=== PATIENT | male | born 1955 | race Caucasian/White ===

== ENCOUNTER 2022-06-14 13:47 | Emergency (ER) | payer MEDICAID ==
[~2022-06-14] VITALS: Ht 182.9 cm; Wt 70.0 kg
[~2022-06-14 13:47] MED LIST: NO HOME MEDS
[2022-06-14 14:47] LABS: ALANINE AMINOTRANSFERASE 18 U/L (12-78); ALBUMIN 4.1 G/DL (3.4-5.0); ALKALINE PHOSPHATASE 117 IU/L (46-116); ANION GAP 7 (8-16); ASPARTATE AMINO TRANSFERASE 10 U/L (10-37); BILIRUBIN,TOTAL 0.6 MG/DL (0.1-1.0); BLOOD UREA NITROGEN 29 MG/DL (7-18); BUN/CREATININE RATIO 22.1 (10.0-20.0); CALCIUM 9.4 MG/DL (8.5-10.1); CHLORIDE 98 MMOL/L (99-107); CREATININE 1.31 MG/DL (0.60-1.10); GLUCOSE 141 MG/DL (70-104); LIPASE < 50 U/L (73-393); POTASSIUM 3.5 MMOL/L (3.5-5.1); SODIUM 140 MMOL/L (135-145); TOTAL CARBON DIOXIDE 35.2 MMOL/L (24-32); TOTAL PROTEIN 8.2 G/DL (6.4-8.2); eGFR 55 ML/MIN
[2022-06-14 14:51] LABS: BASOPHILS # (AUTO) 0.1 X10'3 (0-0.2); BASOPHILS % (AUTO) 0.4 % (0-1); EOSINOPHILS % (AUTO) 0 % (0-6); HEMATOCRIT 44.3 % (42.0-52.0); HEMOGLOBIN 14.8 g/dl (14.0-17.9); LYMPHOCYTES # (AUTO) 1.1 X10'3 (1.1-4.8); LYMPHOCYTES % (AUTO) 8.3 % (21-51); MEAN CORPUSCULAR HEMOGLOBIN 29.1 PG (27.0-31.0); MEAN CORPUSCULAR HGB CONC 33.5 g/dL (33.0-36.5); MEAN CORPUSCULAR VOLUME 86.8 FL (78-98); MEAN PLATELET VOLUME 6.8 FL (7.4-10.4); MONOCYTES # (AUTO) 0.9 X10'3 (0-0.9); MONOCYTES % (AUTO) 6.6 % (2-12); NEUTROPHILS # (AUTO) 11.4 X10'3 (1.8-7.7); NEUTROPHILS % (AUTO) 84.7 % (42-75); PLATELET COUNT 352 X10'3 (140-440); RED BLOOD COUNT 5.11 X10'6 (4.70-6.10); RED CELL DISTRIBUTION WIDTH 14.4 % (11.5-14.5); WHITE BLOOD COUNT 13.4 X10'3 (4.5-11.0)
[2022-06-14] MEDS ORDERED: famotidine/PF 10 mg/ml inj IV ONE (15:10)
[2022-06-14] MEDS ORDERED: pantoprazole 40mg IV 80 MG in normal saline 100ml IV soln 100 ML IV ONE (15:10)
[2022-06-14] MEDS ORDERED: morphine 4 MG/ML inj SYRINge IV ONE (15:10)
[2022-06-14] MEDS ORDERED: normal saline 1000ml 1,000 ML IV ONE ×2 (15:10→17:55)
[2022-06-14] MEDS ORDERED: iohexol 300mg/ml 100ml inj. ONE (15:41)
[2022-06-14 15:46] LABS: APTT 30 SECONDS (22-32)
--- NOTE | 2022-06-14 15:48 | NUR ---
PT TO CT AT THIS TIME
[2022-06-14 17:49] LABS: CLARITY,URINE CLEAR (Clear); COLOR,URINE YELLOW (Yellow); GLUCOSE, URINE NEGATIVE (Neg); KETONES,URINE 15 mg/dl (Neg); LEUKOCYTE ESTERASE ,URINE NEGATIVE (Neg); NITRITES, URINE NEGATIVE (Neg); OCCULT BLOOD,URINE NEGATIVE (Neg); PROTEIN,URINE 30 mg/dl (Neg)
[2022-06-14 17:52] LABS: UA COLLECTION TYPE CLN CATCH MIDSTREAM
[2022-06-14] MEDS ORDERED: ondansetron/PF 4mg/2ml inj IV ONE (17:55)
[2022-06-14] MEDS ORDERED: metoclopramide 5 mg/ml inj IV ONE (17:55)
[2022-06-14 18:07] LABS: BACTERIA,URINE 1+ /HPF (Neg); MUCUS STRANDS MODERATE /LPF (Neg); RBC,URINE NONE SEEN /HPF (0-2); SQUAMOUS EPITHELIAL CELL,UR FEW /LPF (FEW)
[2022-06-14 18:09] LABS: HYALINE CASTS 0-3 /LPF (NEGATIVE)
[2022-06-14] MEDS ORDERED: CefTRIAXone/D5W-Rocephin 1gm 50 ML IV ONE (19:10)
[2022-06-14] MEDS ORDERED: NITR100C6 PO (21:15)
[2022-06-14 21:54] VITALS: BP 133/95
== END 2022-06-14 21:57 | disposition home or self-care (01) ==
LOC: ER 13:48
DX: N39.0 Urinary tract infection, site not specified (principal); R11.2 Nausea with vomiting, unspecified; K21.9 Gastro-esophageal reflux disease without esophagitis; Z79.899 Other long term (current) drug therapy
CPT/HCPCS: 36415; 71045; 74177; 80053; 81001; 83690; 85025; 85610; 85730; 86885; 86900; 86901; 96361; 96365; 96375; 96376; 99285; C9113; J0696; J2270; J2765; J3490; J7030; Q9967

== ENCOUNTER 2022-07-07 13:57 | Inpatient (IN) | payer MEDICAID ==
[~2022-07-07] VITALS: Ht 182.9 cm; Wt 63.0 kg
[~2022-07-07 13:57] MED LIST changes: +NITR100C6 PO
[2022-07-07] MEDS ORDERED: metoclopramide 5 mg/ml inj IV ONE (14:35)
[2022-07-07] MEDS ORDERED: normal saline 1000ML IV soln IV ONE (14:35)
[2022-07-07] MEDS ORDERED: LORazepam 2 mg/ml vial IV ONE (14:35)
[2022-07-07 14:59] LABS: BASOPHILS # (AUTO) 0.1 X10'3 (0-0.2); BASOPHILS % (AUTO) 0.6 % (0-1); EOSINOPHILS % (AUTO) 0.1 % (0-6); HEMATOCRIT 39.3 % (42.0-52.0); HEMOGLOBIN 13.1 g/dl (14.0-17.9); LYMPHOCYTES # (AUTO) 1.5 X10'3 (1.1-4.8); LYMPHOCYTES % (AUTO) 16.6 % (21-51); MEAN CORPUSCULAR HGB CONC 33.4 g/dL (33.0-36.5); MEAN CORPUSCULAR VOLUME 86.8 FL (78-98); MEAN PLATELET VOLUME 6.8 FL (7.4-10.4); MONOCYTES # (AUTO) 0.5 X10'3 (0-0.9); NEUTROPHILS # (AUTO) 6.9 X10'3 (1.8-7.7); NEUTROPHILS % (AUTO) 76.7 % (42-75); PLATELET COUNT 379 X10'3 (140-440); RED BLOOD COUNT 4.53 X10'6 (4.70-6.10); RED CELL DISTRIBUTION WIDTH 14.2 % (11.5-14.5)
[2022-07-07 15:11] LABS: ALANINE AMINOTRANSFERASE 14 U/L (12-78); ALBUMIN 3.9 G/DL (3.4-5.0); ALBUMIN/GLOBULIN RATIO 1.1 (1.1-1.5); ALKALINE PHOSPHATASE 97 IU/L (46-116); ANION GAP 4 (8-16); ASPARTATE AMINO TRANSFERASE 12 U/L (10-37); BILIRUBIN,TOTAL 0.5 MG/DL (0.1-1.0); BLOOD UREA NITROGEN 25 MG/DL (7-18); BUN/CREATININE RATIO 19.5 (10.0-20.0); CALCIUM 9.5 MG/DL (8.5-10.1); CHLORIDE 96 MMOL/L (99-107); CREATININE 1.28 MG/DL (0.60-1.10); GLUCOSE 133 MG/DL (70-104); LIPASE < 50 U/L (73-393); POTASSIUM 3.3 MMOL/L (3.5-5.1); SODIUM 139 MMOL/L (135-145); TOTAL CARBON DIOXIDE 39.3 MMOL/L (24-32); TOTAL PROTEIN 7.6 G/DL (6.4-8.2); eGFR 56 ML/MIN
[2022-07-07 15:55] LABS: CLARITY,URINE CLEAR (Clear); COLOR,URINE YELLOW (Yellow); GLUCOSE, URINE NEGATIVE (Neg); KETONES,URINE NEGATIVE (Neg); LEUKOCYTE ESTERASE ,URINE NEGATIVE (Neg); NITRITES, URINE NEGATIVE (Neg); OCCULT BLOOD,URINE NEGATIVE (Neg); PH,URINE 7.5 (4.8-8.0); PROTEIN,URINE 30 mg/dl (Neg)
[2022-07-07 15:56] LABS: UA COLLECTION TYPE CLN CATCH MIDSTREAM
[2022-07-07 16:04] LABS: SQUAMOUS EPITHELIAL CELL,UR FEW /LPF (FEW)
[2022-07-07 16:05] LABS: BACTERIA,URINE FEW /HPF (Neg); WBC,URINE 0-4 /HPF (0-4)
[2022-07-07 16:06] LABS: RBC,URINE NONE SEEN /HPF (0-2)
[2022-07-07 16:12] LABS: URINE AMPHETAMINE SCREEN NEGATIVE (Neg); URINE BARBITUATE SCREEN NEGATIVE (Neg); URINE BENZODIAZEPINES SCREEN NEGATIVE (Neg); URINE CANNABINOID SCREEN POSITIVE (Neg); URINE COCAINE SCREEN NEGATIVE (Neg); URINE METHADONE SCREEN NEGATIVE (Neg); URINE OPIATE SCREEN NEGATIVE (Neg); URINE PHENCYCLIDINE SCREEN NEGATIVE (Neg)
[2022-07-07] MEDS ORDERED: potassium Cl 20 mEq SR tablet PO ONE (16:30)
[2022-07-07] MEDS ORDERED: magnesium Cl slow-release 64mg tablet PO ONE (16:30)
[2022-07-07] MEDS ORDERED: ondansetron/PF 4mg/2ml inj IV ONE (17:05)
--- NOTE | 2022-07-07 17:07 | NUR ---
Reports unresolved nausea,Dr. Boone made aware.Unable to admin potassium and mag po at this time.
[2022-07-07] MEDS ORDERED: normal saline 1000ML IV soln IVB ONE (18:50)
[2022-07-07] MEDS ORDERED: proCHLORperazine 10 MG/2 ml inj IV ONE (18:50)
[2022-07-07] MEDS ORDERED: diphenhydrAMINE 50 mg/ml inj IV ONE (18:50)
[2022-07-07] MEDS ORDERED: iohexol 300mg/ml 100ml inj. ONE (18:56)
[2022-07-07] MEDS ORDERED: mag hydrox/Alum hydrox/simeth 30ml oral suspension PO PRN (23:40)
[2022-07-07] MEDS ORDERED: HYDROmorphone/PF 0.2 MG/ML SYRINGE IV PRN (23:40)
[2022-07-07] MEDS ORDERED: acetaminophen 650mg rectal suppository RC PRN (23:40)
[2022-07-07] MEDS ORDERED: metoclopramide 5 mg/ml inj IV PRN (23:40)
[2022-07-07] MEDS ORDERED: acetaminophen 325mg tablet PO PRN (23:40)
[2022-07-07] MEDS ORDERED: magnesium 4gm in 100ml NS 100 ML IV PRN (23:40)
[2022-07-07] MEDS ORDERED: potassium Cl 40MEQ/1/2NS 520ml 520 ML IV PRN (23:40)
[2022-07-07] MEDS ORDERED: potassium Cl 20 mEq SR tablet PO PRN ×2 (23:40)
[2022-07-07] MEDS ORDERED: ondansetron/PF 4mg/2ml inj IV PRN (23:40)
[2022-07-07] MEDS ORDERED: ipratropium/albuterol 3ml nebule NEB PRN (23:40)
[2022-07-07] MEDS ORDERED: HYDROmorphone inj. 0.5 MG/0.5 ML DISP.SYRIN IV PRN (23:40)
[2022-07-08] MEDS: diatr meglu/diatrizoate 30ml oral sol.-(3 dose) bottle PO SCH ×3 (00:09→10:31)
[2022-07-08] MEDS: normal saline 1000ml 1,000 ML IV SCH ×3 (00:10→19:40)
--- NOTE | 2022-07-08 00:45 | NUR ---
Report given to me by Sailaja WEINBERG in ER and I will give report to Renuka WEINBERG when she is back from lunch.
--- NOTE | 2022-07-08 01:00 | NUR ---
Patient in room [facility]TH[facility] 4015. I have received report from Aleja WEINBERG and had the opportunity to ask questions and assume patient care.
--- NOTE | 2022-07-08 02:04 | NUR ---
Pt came to the floor at 0100. I assessed his NG tube at this time he had an output of 600ml Addendum: 07/08/22 at 0205 by Jordyn Harmon RN Amended: Links added.
[2022-07-08 03:15] VITALS: BP 117/74
[2022-07-08 06:00] VITALS: BP 121/91
[2022-07-08 06:02] LABS: BASOPHILS # (AUTO) 0.1 X10'3 (0-0.2); BASOPHILS % (AUTO) 0.5 % (0-1); EOSINOPHILS % (AUTO) 0.1 % (0-6); HEMATOCRIT 35.8 % (42.0-52.0); HEMOGLOBIN 11.6 g/dl (14.0-17.9); LYMPHOCYTES # (AUTO) 2.1 X10'3 (1.1-4.8); LYMPHOCYTES % (AUTO) 17.6 % (21-51); MEAN CORPUSCULAR HEMOGLOBIN 28.1 PG (27.0-31.0); MEAN CORPUSCULAR HGB CONC 32.4 g/dL (33.0-36.5); MEAN CORPUSCULAR VOLUME 86.6 FL (78-98); MEAN PLATELET VOLUME 7.1 FL (7.4-10.4); MONOCYTES # (AUTO) 0.9 X10'3 (0-0.9); MONOCYTES % (AUTO) 7.2 % (2-12); NEUTROPHILS % (AUTO) 74.6 % (42-75); PLATELET COUNT 341 X10'3 (140-440); RED BLOOD COUNT 4.13 X10'6 (4.70-6.10); RED CELL DISTRIBUTION WIDTH 14.1 % (11.5-14.5)
--- NOTE | 2022-07-08 06:33 | NUR ---
Patient in room ORTHO 4015. I have received report from LENARD Cobb and had the opportunity to ask questions and assume patient care.
[2022-07-08 07:01] LABS: ALANINE AMINOTRANSFERASE 16 U/L (12-78); ALBUMIN 3.4 G/DL (3.4-5.0); ALKALINE PHOSPHATASE 82 IU/L (46-116); ANION GAP 6 (8-16); ASPARTATE AMINO TRANSFERASE 14 U/L (10-37); BILIRUBIN,TOTAL 0.5 MG/DL (0.1-1.0); BLOOD UREA NITROGEN 20 MG/DL (7-18); BUN/CREATININE RATIO 18.5 (10.0-20.0); CALCIUM 9.1 MG/DL (8.5-10.1); CHLORIDE 100 MMOL/L (99-107); CREATININE 1.08 MG/DL (0.60-1.10); GLUCOSE 97 MG/DL (70-104); MAGNESIUM 2.3 MG/DL (1.5-2.4); POTASSIUM 3.3 MMOL/L (3.5-5.1); SODIUM 142 MMOL/L (135-145); TOTAL CARBON DIOXIDE 35.8 MMOL/L (24-32); TOTAL PROTEIN 6.8 G/DL (6.4-8.2); eGFR 68 ML/MIN
[2022-07-08] MEDS: docusate sod 100mg capsule PO SCH ×2 (07:28→19:47)
[2022-07-08] MEDS: heparin, porcine 5000 units/ml vial SQ SCH ×2 (07:29→19:48)
[2022-07-08] MEDS: nicotine 21mg patch - 24 hr TD SCH (07:29)
[2022-07-08] MEDS: K and/or MAG REPLACEMENT MC SCH ×2 (07:31→19:04)
[2022-07-08] MEDS: pantoprazole 40MG/NS 100ML BAG 100 ML IV SCH (07:46)
[2022-07-08 10:00] VITALS: BP 119/88
--- NOTE | 2022-07-08 13:34 | NUR ---
Malnutrition consult: Pt unsure of wt loss though reports decreased appetite/PO intake per malnutrition risk screen with RN. Attempted visit with pt at bedside however pt sleeping. Pt appeared thin though unable to fully visualize for fat or muscle wasting during attempted visit. Current documented wt is 63 kg though not scaled and most recent scaled wt hx in EMR is back in 2011. Pt currently NPO with an NGT in place. No documented significant decrease in muscle strength or edema. Unable to fully assess for malnutrition at this time given limited information. Will f/u at another time. Addendum: 07/08/22 at [address] Amended: Links added.
[2022-07-08] MEDS: metroNIDAZOLE-Flagyl 500mg/NS 100 ML IV SCH ×2 (16:12→22:41)
--- NOTE | 2022-07-08 16:51 | NUR ---
PAGER ID: [phone] MESSAGE: Patient Flakito Rodriguez, [id number]. CT of abdomen was done. Would you like to start him on clear liquid diet? Jasmyn [id number] Addendum: 07/08/22 at 1703 by Rl Marie LVN MD called with order to clamp NG tube and start patient with clear liquid diet, if tolerated advance to full liquid diet. If full liquid diet is tolerate remove NG tube and advance to regular. Addendum: 07/08/22 at 1723 by Rl Marie LVN NG tube was clamped at approximately 1720.
[2022-07-08] MEDS: ciprofloxacin lact 400MG/200ML 200 ML IV SCH ×2 (17:19→20:29)
[2022-07-08 18:00] VITALS: BP 112/80
--- NOTE | 2022-07-08 18:27 | NUR ---
Problems reprioritized. Patient report given, questions answered & plan of care reviewed with AARON Herndon.
--- NOTE | 2022-07-08 18:28 | NUR ---
Patient in room [facility]TH[facility] 4015. I have received report from JAMIL WALKER and had the opportunity to ask questions and assume patient care.
[2022-07-08] MEDS ORDERED: nicotine 21mg patch - 24 hr TD ONE (19:30)
[2022-07-08 22:20] VITALS: BP 97/67
--- NOTE | 2022-07-09 00:21 | NUR ---
PAGER ID: [phone] MESSAGE: [id number] Flakito Rodriguez would like something to help him sleep please. Katrina [phone]
--- NOTE | 2022-07-09 00:22 | NUR ---
order temazepam 15mg one time for sleep.
[2022-07-09] MEDS ORDERED: temazepam 15mg capsule PO ONE (00:55)
--- NOTE | 2022-07-09 01:11 | NUR ---
Agree with Radha WALKER physical assessment except where I documented my findings.
[2022-07-09] MEDS: normal saline 1000ml 1,000 ML IV SCH (01:12)
--- NOTE | 2022-07-09 06:20 | NUR ---
Problems reprioritized. Patient report given to ELLA WALKER, questions answered & plan of care reviewed with .
--- NOTE | 2022-07-09 06:25 | NUR ---
Patient in room ORTH[facility] 4015. I have received report from Radha WALKER and had the opportunity to ask questions and assume patient care.
[2022-07-09 06:39] LABS: ALANINE AMINOTRANSFERASE 10 U/L (12-78); ALBUMIN 2.6 G/DL (3.4-5.0); ALKALINE PHOSPHATASE 64 IU/L (46-116); ANION GAP 5 (8-16); ASPARTATE AMINO TRANSFERASE 12 U/L (10-37); BILIRUBIN,TOTAL 0.5 MG/DL (0.1-1.0); BLOOD UREA NITROGEN 18 MG/DL (7-18); BUN/CREATININE RATIO 17.3 (10.0-20.0); CHLORIDE 101 MMOL/L (99-107); CREATININE 1.04 MG/DL (0.60-1.10); GLUCOSE 114 MG/DL (70-104); MAGNESIUM 1.9 MG/DL (1.5-2.4); SODIUM 137 MMOL/L (135-145); TOTAL CARBON DIOXIDE 31.3 MMOL/L (24-32); TOTAL PROTEIN 5.3 G/DL (6.4-8.2); eGFR 71 ML/MIN
[2022-07-09 06:42] LABS: POTASSIUM 2.9 MMOL/L (3.5-5.1)
[2022-07-09 06:59] LABS: EOSINOPHILS # (AUTO) 0.1 X10'3 (0-0.9); EOSINOPHILS % (AUTO) 2.4 % (0-6); HEMATOCRIT 28.9 % (42.0-52.0); HEMOGLOBIN 9.5 g/dl (14.0-17.9); LYMPHOCYTES # (AUTO) 1.7 X10'3 (1.1-4.8); LYMPHOCYTES % (AUTO) 35.3 % (21-51); MEAN CORPUSCULAR HEMOGLOBIN 28.6 PG (27.0-31.0); MEAN CORPUSCULAR HGB CONC 32.8 g/dL (33.0-36.5); MEAN CORPUSCULAR VOLUME 87.2 FL (78-98); MEAN PLATELET VOLUME 7.3 FL (7.4-10.4); MONOCYTES # (AUTO) 0.3 X10'3 (0-0.9); MONOCYTES % (AUTO) 7.3 % (2-12); NEUTROPHILS # (AUTO) 2.6 X10'3 (1.8-7.7); PLATELET COUNT 264 X10'3 (140-440); RED BLOOD COUNT 3.32 X10'6 (4.70-6.10); RED CELL DISTRIBUTION WIDTH 13.9 % (11.5-14.5); WHITE BLOOD COUNT 4.8 X10'3 (4.5-11.0)
[2022-07-09] MEDS: pantoprazole 40MG/NS 100ML BAG 100 ML IV SCH (08:00)
[2022-07-09] MEDS ORDERED: CIPROFLOXACIN 200mg/D5W 100 ML premix IV SCH ×2 (08:00→08:30)
[2022-07-09] MEDS: docusate sod 100mg capsule PO SCH (08:00)
[2022-07-09] MEDS: metroNIDAZOLE-Flagyl 500mg/NS 100 ML IV SCH (08:26)
[2022-07-09] MEDS: heparin, porcine 5000 units/ml vial SQ SCH (08:36)
[2022-07-09] MEDS: nicotine 21mg patch - 24 hr TD SCH (08:37)
[2022-07-09] MEDS: K and/or MAG REPLACEMENT MC SCH (08:37)
[2022-07-09 10:00] VITALS: BP 109/76
[2022-07-09] MEDS ORDERED: PANT-47 PO (10:02)
[2022-07-09] MEDS ORDERED: POTA-207 PO (10:02)
[2022-07-09] MEDS ORDERED: NICO-687 TD (10:20)
--- NOTE | 2022-07-09 10:50 | NUR ---
Pt NG tube removed, no complications during removal, pt tolerated well. Pt diet advanced to regular will DC pt post lunch if advanced diet is tolerated well
--- NOTE | 2022-07-09 14:30 | NUR ---
Pt dc to home, via private vehicle. Pt vss and alert, oriented, and stable at time of discharge. Pt verbally agreeable to all discharge education and information provided, pt belongings from pharmacy and safe returned and accounted for. Pt escorted to private vehicle by staff.
--- NOTE | 2022-07-09 14:37 | NUR ---
F/u 07/09: Pt admit DX dilated loops of small bowel and significantly dilated stomach w/ acute renal insufficiency per EMR. Initially NPO w/ NG to suction though NG now out advanced to regular diet and tolerating PO per EMR. Pt pending discharge since tolerated PO per EMR. Pt seen by RD at bedside; pt reports UBW ~160 pounds 6 months ago w/ decreased desire to eat given frequent GI issues and N/V 5 days SPRAYER HAND. Pt w/ mild weakness per EMR, mild temporal/clavicular wasting during RD visit, ~12% UBW loss 6 months using current reported wt, and reports clothes fitting looser. Given this pt meets minimum severe malnutrition criteria-DO notified. RD verbally educated pt on nutrition strategies for weight gain and ONS options; pt reports has started drinking Ensures recently. RD encouraged pt to request dietitian this admit if further nutrition questions/concerns. Will hold ONS since pt pending discharge today per EMR. Will continue to follow. Rec: 1. continue regular diet; encourage PO 2. Ensure Enlive TIDWM if pt discharge postponed 3. bowel care per rx 4. scaled wt this admit; subsequent weekly wt Addendum: 07/09/22 at [address] Amended: Links added.
[2022-07-09] MEDS ORDERED: CIPROFLOXACIN 400MG/200ML premix IV SCH (20:00)
== END 2022-07-09 14:30 | disposition home or self-care (01) | DRG 254 ==
LOC: ER 13:58 → ED HOLD 23:47 → ORTHO 4S 07-08 01:13
PROVIDERS: ADMIT Family Medicine; ATTEND Internal Medicine
PROC: BW211ZZ Computerized Tomography (CT Scan) of Abdomen and Pelvis using Low Osmolar Contrast (ICD-10-PCS; principal; 2022-07-07)
DX: K31.84 Gastroparesis (principal); K56.2 Volvulus; E87.6 Hypokalemia; N28.9 Disorder of kidney and ureter, unspecified; I10 Essential (primary) hypertension; Z87.11 Personal history of peptic ulcer disease; Z72.0 Tobacco use; Z71.6 Tobacco abuse counseling
CPT/HCPCS: 36415; 74176; 74177; 80053; 80305; 81001; 83690; 83735; 85025; 87081; 94760; 99285; C9113; G0378; J0744; J0780; J1200; J1644; J2060; J2405; J2765; J3480; J3490; J7030; J7040; Q9963; Q9967

== ENCOUNTER 2022-07-13 15:55 | Emergency (ER) | payer MEDICAID ==
[~2022-07-13 15:55] MED LIST changes: +NICO-687 TD; -NITR100C6 PO; -NO HOME MEDS; +PANT-47 PO; +POTA-207 PO
== END 2022-07-13 18:34 | disposition left against medical advice (07) ==
LOC: ER 15:55
DX: K25.9 Gastric ulcer, unspecified as acute or chronic, without hemorrhage or perforation (principal); Z53.21 Procedure and treatment not carried out due to patient leaving prior to being seen by health care provider

== ENCOUNTER 2022-07-20 19:55 | Inpatient (IN) | payer MEDICAID ==
[~2022-07-20] VITALS: Ht 182.9 cm; Wt 59.1 kg
[2022-07-20] MEDS ORDERED: metoclopramide 5 mg/ml inj IV STA (20:58)
--- NOTE | 2022-07-20 20:58 | NUR ---
ems was to pull the iv but it is still in place.
[2022-07-20 21:14] LABS: MEAN PLATELET VOLUME 6.7 FL (7.4-10.4); RED BLOOD COUNT 4.61 X10'6 (4.70-6.10); WHITE BLOOD COUNT 13.4 X10'3 (4.5-11.0)
[2022-07-20 21:15] LABS: BASOPHILS # (AUTO) 0.1 X10'3 (0-0.2); BASOPHILS % (AUTO) 0.4 % (0-1); EOSINOPHILS % (AUTO) 0.1 % (0-6); HEMATOCRIT 39.5 % (42.0-52.0); LYMPHOCYTES # (AUTO) 1.4 X10'3 (1.1-4.8); LYMPHOCYTES % (AUTO) 10.3 % (21-51); MEAN CORPUSCULAR HEMOGLOBIN 28.3 PG (27.0-31.0); MEAN CORPUSCULAR VOLUME 85.7 FL (78-98); MONOCYTES # (AUTO) 0.7 X10'3 (0-0.9); NEUTROPHILS # (AUTO) 11.3 X10'3 (1.8-7.7); NEUTROPHILS % (AUTO) 84.2 % (42-75); PLATELET COUNT 550 X10'3 (140-440); RED CELL DISTRIBUTION WIDTH 14.1 % (11.5-14.5)
[2022-07-20 21:28] LABS: ALANINE AMINOTRANSFERASE 28 U/L (12-78); ALKALINE PHOSPHATASE 101 IU/L (46-116); AMYLASE 35 U/L (25-115); ANION GAP 9 (8-16); ASPARTATE AMINO TRANSFERASE 15 U/L (10-37); BILIRUBIN,TOTAL 0.5 MG/DL (0.1-1.0); BLOOD UREA NITROGEN 29 MG/DL (7-18); BUN/CREATININE RATIO 21.6 (10.0-20.0); CHLORIDE 93 MMOL/L (99-107); CREATININE 1.34 MG/DL (0.60-1.10); GLUCOSE 151 MG/DL (70-104); LIPASE < 50 U/L (73-393); POTASSIUM 3.3 MMOL/L (3.5-5.1); SODIUM 141 MMOL/L (135-145); TOTAL CARBON DIOXIDE 38.6 MMOL/L (24-32); TOTAL PROTEIN 7.9 G/DL (6.4-8.2); eGFR 53 ML/MIN
[2022-07-20 22:30] LABS: COLOR,URINE YELLOW (Yellow); GLUCOSE, URINE NEGATIVE (Neg); KETONES,URINE NEGATIVE (Neg); LEUKOCYTE ESTERASE ,URINE NEGATIVE (Neg); NITRITES, URINE NEGATIVE (Neg); OCCULT BLOOD,URINE NEGATIVE (Neg); PROTEIN,URINE 100 mg/dl (Neg); UROBILINOGEN,URINE 0.2 E.U/dL (0.2-1.0)
[2022-07-20 22:32] LABS: CLARITY,URINE SLIGHTLY CLOUDY (Clear); UA COLLECTION TYPE CLN CATCH MIDSTREAM
[2022-07-20 22:38] LABS: BACTERIA,URINE FEW /HPF (Neg); FINE GRANULAR CAST 0-3 /LPF (NEGATIVE); HYALINE CASTS >30 /LPF (NEGATIVE); RBC,URINE 0-2 /HPF (0-2); SQUAMOUS EPITHELIAL CELL,UR FEW /LPF (FEW)
[2022-07-21] MEDS ORDERED: normal saline 1000ML IV soln IVB ONE (01:20)
[2022-07-21] MEDS ORDERED: ondansetron/PF 4mg/2ml inj IV ONE (01:20)
[2022-07-21] MEDS ORDERED: CefTRIAXone/D5W-Rocephin 1gm 50 ML IV ONE ×2 (01:25→07:05)
[2022-07-21] MEDS: morphine 4 MG/ML inj SYRINge IV PRN ×2 (01:44→07:21)
[2022-07-21] MEDS ORDERED: bisacodyl 10mg suppository rectal RC PRN (08:00)
[2022-07-21] MEDS ORDERED: magnesium 2GM in 50ml NS 50 ML IV PRN (08:00)
[2022-07-21] MEDS: K and/or MAG REPLACEMENT MC SCH ×2 (08:00→20:00)
[2022-07-21] MEDS ORDERED: potassium Cl 40MEQ/1/2NS 520ml 520 ML IV PRN (08:00)
[2022-07-21] MEDS ORDERED: magnesium Cl slow-release 64mg tablet PO PRN (08:00)
[2022-07-21] MEDS: docusate sod 100mg capsule PO SCH ×2 (08:00→19:11)
[2022-07-21] MEDS ORDERED: potassium Cl 20 mEq SR tablet PO PRN ×2 (08:00)
[2022-07-21] MEDS ORDERED: magnesium hydroxide 30ml (MOM) UD suspension PO PRN (08:00)
[2022-07-21] MEDS ORDERED: heparin, porcine 5000 units/ml vial SQ SCH (08:00)
[2022-07-21] MEDS ORDERED: magnesium 4gm in 100ml NS 100 ML IV PRN (08:00)
[2022-07-21] MEDS ORDERED: acetaminophen 325mg tablet PO PRN (08:00)
[2022-07-21] MEDS: potassium Cl 20mEq in NS 1,000 ML IV SCH ×3 (10:00→18:32)
[2022-07-21 13:04] LABS: BASOPHILS % (AUTO) 0.2 % (0-1); EOSINOPHILS % (AUTO) 0 % (0-6); HEMATOCRIT 36.8 % (42.0-52.0); HEMOGLOBIN 11.9 g/dl (14.0-17.9); LYMPHOCYTES # (AUTO) 1.2 X10'3 (1.1-4.8); LYMPHOCYTES % (AUTO) 6.7 % (21-51); MEAN CORPUSCULAR HEMOGLOBIN 27.9 PG (27.0-31.0); MEAN CORPUSCULAR HGB CONC 32.3 g/dL (33.0-36.5); MEAN CORPUSCULAR VOLUME 86.2 FL (78-98); MONOCYTES % (AUTO) 5.3 % (2-12); NEUTROPHILS # (AUTO) 16.2 X10'3 (1.8-7.7); NEUTROPHILS % (AUTO) 87.8 % (42-75); PLATELET COUNT 458 X10'3 (140-440); RED BLOOD COUNT 4.27 X10'6 (4.70-6.10); RED CELL DISTRIBUTION WIDTH 14.2 % (11.5-14.5); WHITE BLOOD COUNT 18.4 X10'3 (4.5-11.0)
[2022-07-21 13:16] LABS: ALANINE AMINOTRANSFERASE 23 U/L (12-78); ALBUMIN 3.3 G/DL (3.4-5.0); ALKALINE PHOSPHATASE 84 IU/L (46-116); ANION GAP 8 (8-16); ASPARTATE AMINO TRANSFERASE 10 U/L (10-37); BILIRUBIN,TOTAL 0.4 MG/DL (0.1-1.0); BLOOD UREA NITROGEN 38 MG/DL (7-18); BUN/CREATININE RATIO 30.6 (10.0-20.0); CALCIUM 8.7 MG/DL (8.5-10.1); CHLORIDE 99 MMOL/L (99-107); CREATININE 1.24 MG/DL (0.60-1.10); GLUCOSE 112 MG/DL (70-104); POTASSIUM 3.9 MMOL/L (3.5-5.1); SODIUM 137 MMOL/L (135-145); TOTAL CARBON DIOXIDE 29.9 MMOL/L (24-32); TOTAL PROTEIN 6.7 G/DL (6.4-8.2); eGFR 58 ML/MIN
--- NOTE | 2022-07-21 14:01 | NUR ---
Pt. has been sleeping intermittenly throughout the day. RN has been rounding frequently, denies any distress. NG to low suction with lt brown drainage noted in tubing. Remains NPO per MD orders.
[2022-07-21] MEDS ORDERED: NO HOME MEDS (14:41)
[2022-07-21 15:34] VITALS: BP 142/100
--- NOTE | 2022-07-21 15:39 | NUR ---
PAGER ID: [phone] MESSAGE: Miller Rodriguez6. Patient just got to floor, requesting pain medication for 8/10 abdominal pain. Patient also asking if ok to have ice chips. Thank you, Shanice Saravia
--- NOTE | 2022-07-21 15:41 | NUR ---
Took report from ER nurse Arlet. Patient in room 4006. Vital signs stable at this time. Patient requesting pain medication and ice chips. Page sent to .
[2022-07-21 18:00] VITALS: BP 123/89
[2022-07-21] MEDS ORDERED: nicotine 21mg patch - 24 hr TD ONE (18:00)
--- NOTE | 2022-07-21 18:12 | NUR ---
Problems reprioritized. Patient report given, questions answered & plan of care reviewed with [LENARD Paul].
[2022-07-21] MEDS: magnesium hydroxide 30ml (MOM) UD suspension PO SCH (18:40)
[2022-07-21] MEDS: docusate sodium 100mg/10ml UD cup NG SCH (19:11)
[2022-07-21] MEDS: diatr meglu/diatrizoate 30ml oral sol.-(3 dose) bottle PO SCH (21:33)
[2022-07-21] MEDS: pantoprazole 40MG/NS 100ML BAG 100 ML IV SCH (21:33)
[2022-07-21] MEDS: acetaminophen 325mg tablet PO PRN (21:49)
[2022-07-21 22:00] VITALS: BP 126/85
[2022-07-22] MEDS: potassium Cl 20mEq in NS 1,000 ML IV SCH ×2 (01:48→13:58)
[2022-07-22] MEDS: acetaminophen 325mg tablet PO PRN ×2 (03:47→10:39)
--- NOTE | 2022-07-22 06:14 | NUR ---
Problems reprioritized. Patient report given, questions answered & plan of care reviewed with KERMIT WEINBERG.
--- NOTE | 2022-07-22 06:34 | NUR ---
Patient in room ORTHO 4006. I have received report from PRU RN and had the opportunity to ask questions and assume patient care.
[2022-07-22 07:00] VITALS: BP 122/77
[2022-07-22 07:14] LABS: BASOPHILS # (AUTO) 0.1 X10'3 (0-0.2); BASOPHILS % (AUTO) 0.6 % (0-1); EOSINOPHILS % (AUTO) 0.2 % (0-6); HEMATOCRIT 30.4 % (42.0-52.0); HEMOGLOBIN 9.7 g/dl (14.0-17.9); LYMPHOCYTES # (AUTO) 1.3 X10'3 (1.1-4.8); MEAN CORPUSCULAR HGB CONC 32.1 g/dL (33.0-36.5); MEAN CORPUSCULAR VOLUME 87.4 FL (78-98); MEAN PLATELET VOLUME 6.5 FL (7.4-10.4); MONOCYTES # (AUTO) 0.5 X10'3 (0-0.9); MONOCYTES % (AUTO) 4.6 % (2-12); NEUTROPHILS # (AUTO) 9.8 X10'3 (1.8-7.7); NEUTROPHILS % (AUTO) 83.6 % (42-75); PLATELET COUNT 359 X10'3 (140-440); RED BLOOD COUNT 3.47 X10'6 (4.70-6.10); WHITE BLOOD COUNT 11.7 X10'3 (4.5-11.0)
[2022-07-22] MEDS: docusate sodium 100mg/10ml UD cup NG SCH ×2 (07:37→21:03)
[2022-07-22] MEDS: pantoprazole 40MG/NS 100ML BAG 100 ML IV SCH ×2 (07:37→22:04)
[2022-07-22] MEDS: magnesium hydroxide 30ml (MOM) UD suspension PO SCH (07:37)
[2022-07-22] MEDS: nicotine 21mg patch - 24 hr TD SCH (07:38)
[2022-07-22] MEDS: diatr meglu/diatrizoate 30ml oral sol.-(3 dose) bottle PO SCH ×2 (07:38→10:38)
[2022-07-22 07:43] LABS: ALANINE AMINOTRANSFERASE 15 U/L (12-78); ALBUMIN 2.6 G/DL (3.4-5.0); ALBUMIN/GLOBULIN RATIO 0.8 (1.1-1.5); ALKALINE PHOSPHATASE 66 IU/L (46-116); ANION GAP 6 (8-16); ASPARTATE AMINO TRANSFERASE 11 U/L (10-37); BILIRUBIN,TOTAL 0.5 MG/DL (0.1-1.0); BLOOD UREA NITROGEN 30 MG/DL (7-18); BUN/CREATININE RATIO 29.1 (10.0-20.0); CALCIUM 8.1 MG/DL (8.5-10.1); CHLORIDE 104 MMOL/L (99-107); CREATININE 1.03 MG/DL (0.60-1.10); GLUCOSE 97 MG/DL (70-104); MAGNESIUM 2.2 MG/DL (1.5-2.4); PHOSPHORUS 2.6 MG/DL (2.3-4.5); POTASSIUM 3.9 MMOL/L (3.5-5.1); SODIUM 141 MMOL/L (135-145); TOTAL CARBON DIOXIDE 30.6 MMOL/L (24-32); TOTAL PROTEIN 5.7 G/DL (6.4-8.2); eGFR 72 ML/MIN
[2022-07-22] MEDS: K and/or MAG REPLACEMENT MC SCH ×2 (08:00→20:23)
[2022-07-22] MEDS: docusate sod 100mg capsule PO SCH ×2 (08:00→20:00)
[2022-07-22 10:00] VITALS: BP 127/86
[2022-07-22] MEDS: ondansetron 4mg rapidly disintigrating tab PO PRN ×2 (10:34→18:58)
[2022-07-22] MEDS ORDERED: iohexol 350MG/ML 100ml bottle IV ONE (10:39)
[2022-07-22] MEDS ORDERED: HYDROcodone/acetaminophen 5mg/325mg tablet PO PRN (12:35)
[2022-07-22] MEDS: HYDROcodone/acetaminophen 5mg/325mg tablet PO PRN ×2 (13:39→21:16)
--- NOTE | 2022-07-22 14:44 | NUR ---
Noted pt with a low BMI of 17.7 however current documented wt isn't scaled. Pt admit for epigastric pain and gastric outlet obstruction, currently NPO with an NGT in place for low continuous suction. Per H&P pt reports N/V with 30 lb wt loss since . Pt recently admitted and seen by RD 07/09 where pt reported UBW 160 lbs with ~12% wt loss in 6 months and visible mild fat and muscle wasting were appreciated, meeting criteria for malnutrition. Per RD note pt reports decreased desire to eat secondary to frequent GI issues. Malnutrition status remains appropriate this admit though unable to provide nutrition intervention at this time given NPO status. LBM 07/20 per EMR. Pt receiving routine bowel care. Will continue to follow closely. Recommendations: 1) Advance to regular diet as medically indicated 2) Consider Ensure Enlive TID for nutrition repletion with diet advancement 3) Routine bowel care 4) Scaled weight this admit; subsequent weekly scaled weights Addendum: 07/22/22 at [address] Amended: Links added.
[2022-07-22 18:00] VITALS: BP 115/85
--- NOTE | 2022-07-22 18:27 | NUR ---
patient went for CT today see results. Pain meds addressed by Dr Alston. Worked well for patient. . c/o nausea medicated x2 with good result . NG 200mls out. Report given to Prudence RN
--- NOTE | 2022-07-22 19:11 | NUR ---
Patient in room ORTHO 4006. I have received report from KERMIT WEINBERG and had the opportunity to ask questions and assume patient care.
[2022-07-22 22:00] VITALS: BP 114/56
[2022-07-22] MEDS: ondansetron/PF 4mg/2ml inj IV PRN (23:13)
[2022-07-22] MEDS: mag hydrox/Alum hydrox/simeth 30ml oral suspension PO PRN (23:25)
[2022-07-23] VITALS (8 sets, daily range): BP systolic 124–140; BP diastolic 77–98
[2022-07-23] MEDS: potassium Cl 20mEq in NS 1,000 ML IV SCH ×3 (03:24→16:07)
--- NOTE | 2022-07-23 06:19 | NUR ---
Problems reprioritized. Patient report given, questions answered & plan of care reviewed with ONEYDA WEINBERG.
--- NOTE | 2022-07-23 06:46 | NUR ---
Patient in room ORTH[facility] 4006. I have received report from Ariane WEINBERG and had the opportunity to ask questions and assume patient care.
[2022-07-23 07:31] LABS: BASOPHILS % (AUTO) 0.6 % (0-1); EOSINOPHILS # (AUTO) 0.1 X10'3 (0-0.9); HEMATOCRIT 30.2 % (42.0-52.0); HEMOGLOBIN 9.8 g/dl (14.0-17.9); LYMPHOCYTES # (AUTO) 1.2 X10'3 (1.1-4.8); LYMPHOCYTES % (AUTO) 17.2 % (21-51); MEAN CORPUSCULAR HEMOGLOBIN 28.3 PG (27.0-31.0); MEAN CORPUSCULAR HGB CONC 32.5 g/dL (33.0-36.5); MEAN PLATELET VOLUME 6.7 FL (7.4-10.4); MONOCYTES # (AUTO) 0.4 X10'3 (0-0.9); MONOCYTES % (AUTO) 5.4 % (2-12); NEUTROPHILS # (AUTO) 5.4 X10'3 (1.8-7.7); NEUTROPHILS % (AUTO) 74.8 % (42-75); PLATELET COUNT 336 X10'3 (140-440); RED BLOOD COUNT 3.47 X10'6 (4.70-6.10); WHITE BLOOD COUNT 7.2 X10'3 (4.5-11.0)
[2022-07-23 07:40] LABS: ALANINE AMINOTRANSFERASE 15 U/L (12-78); ALBUMIN 2.5 G/DL (3.4-5.0); ALBUMIN/GLOBULIN RATIO 0.8 (1.1-1.5); ALKALINE PHOSPHATASE 60 IU/L (46-116); ANION GAP 7 (8-16); ASPARTATE AMINO TRANSFERASE 10 U/L (10-37); BILIRUBIN,TOTAL 0.4 MG/DL (0.1-1.0); BLOOD UREA NITROGEN 23 MG/DL (7-18); BUN/CREATININE RATIO 25.3 (10.0-20.0); CALCIUM 8.2 MG/DL (8.5-10.1); CHLORIDE 105 MMOL/L (99-107); CREATININE 0.91 MG/DL (0.60-1.10); GLUCOSE 70 MG/DL (70-104); MAGNESIUM 2.1 MG/DL (1.5-2.4); POTASSIUM 4.3 MMOL/L (3.5-5.1); SODIUM 140 MMOL/L (135-145); TOTAL CARBON DIOXIDE 27.9 MMOL/L (24-32); TOTAL PROTEIN 5.5 G/DL (6.4-8.2); eGFR 83 ML/MIN
[2022-07-23] MEDS: docusate sod 100mg capsule PO SCH ×2 (08:00→20:00)
[2022-07-23] MEDS: K and/or MAG REPLACEMENT MC SCH ×2 (08:00→20:00)
[2022-07-23] MEDS: docusate sodium 100mg/10ml UD cup NG SCH ×2 (08:29→19:41)
[2022-07-23] MEDS: magnesium hydroxide 30ml (MOM) UD suspension PO SCH (08:29)
[2022-07-23] MEDS: pantoprazole 40MG/NS 100ML BAG 100 ML IV SCH ×2 (08:30→19:38)
[2022-07-23] MEDS: nicotine 21mg patch - 24 hr TD SCH (08:30)
[2022-07-23] MEDS ORDERED: fentaNYL/PF 50MCG/1 ML 2ML syringe ONE (11:52)
[2022-07-23] MEDS ORDERED: LIDOcaine Viscous 15ml cup ONE (11:53)
[2022-07-23] MEDS ORDERED: MIDAZolam 1 MG/ML 5ML VIAL ONE (11:53)
--- NOTE | 2022-07-23 15:10 | NUR ---
Patient back on the unit from GI lab, Gastric empying study will be scheduled for tomorrow. Daughters number is
[2022-07-23] MEDS: HYDROcodone/acetaminophen 5mg/325mg tablet PO PRN (15:56)
[2022-07-23] MEDS: ondansetron/PF 4mg/2ml inj IV PRN (16:02)
--- NOTE | 2022-07-23 16:15 | NUR ---
promotional table spacer PAGER ID: [phone] MESSAGE: [phone] Can I get IV pain medication for this patient with an NG tube. Leyt [phone] (78 character message out of a maximum of 240) CLOSE [X] SEND ANOTHER PAGE Thank you for visiting [facility] promotional table spacer promotional table spacer
[2022-07-23] MEDS ORDERED: HYDROmorphone inj. 0.5 MG/0.5 ML DISP.SYRIN IV PRN (16:25)
--- NOTE | 2022-07-23 16:27 | NUR ---
New NG placed in GI lab.
[2022-07-23] MEDS: HYDROmorphone 1 mg/ml syringe IV PRN ×2 (16:34→22:01)
--- NOTE | 2022-07-23 19:01 | NUR ---
Patient in room ORTH[facility] 4006. I have received report from ONEYDA WEINBERG and had the opportunity to ask questions and assume patient care.
[2022-07-23] MEDS: mag hydrox/Alum hydrox/simeth 30ml oral suspension PO PRN (22:04)
[2022-07-23] MEDS: ondansetron 4mg rapidly disintigrating tab PO PRN (22:04)
[2022-07-24] MEDS: potassium Cl 20mEq in NS 1,000 ML IV SCH ×3 (00:08→10:06)
[2022-07-24] MEDS: HYDROmorphone 1 mg/ml syringe IV PRN ×4 (04:32→22:25)
[2022-07-24 06:00] VITALS: BP 147/89
--- NOTE | 2022-07-24 06:33 | NUR ---
Problems reprioritized. Patient report given, questions answered & plan of care reviewed with LAM WALKER.
[2022-07-24] MEDS: pantoprazole 40MG/NS 100ML BAG 100 ML IV SCH ×2 (06:44→20:00)
[2022-07-24 07:27] LABS: ALANINE AMINOTRANSFERASE 15 U/L (12-78); ALBUMIN 2.7 G/DL (3.4-5.0); ALBUMIN/GLOBULIN RATIO 0.9 (1.1-1.5); ALKALINE PHOSPHATASE 62 IU/L (46-116); ANION GAP 8 (8-16); ASPARTATE AMINO TRANSFERASE 15 U/L (10-37); BILIRUBIN,TOTAL 0.4 MG/DL (0.1-1.0); BLOOD UREA NITROGEN 17 MG/DL (7-18); BUN/CREATININE RATIO 18.3 (10.0-20.0); CHLORIDE 105 MMOL/L (99-107); CREATININE 0.93 MG/DL (0.60-1.10); GLUCOSE 78 MG/DL (70-104); MAGNESIUM 1.9 MG/DL (1.5-2.4); PHOSPHORUS 2.1 MG/DL (2.3-4.5); POTASSIUM 4.1 MMOL/L (3.5-5.1); SODIUM 139 MMOL/L (135-145); TOTAL CARBON DIOXIDE 26.5 MMOL/L (24-32); TOTAL PROTEIN 5.8 G/DL (6.4-8.2); eGFR 81 ML/MIN
[2022-07-24 07:52] LABS: BASOPHILS % (AUTO) 0.7 % (0-1); EOSINOPHILS # (AUTO) 0.2 X10'3 (0-0.9); EOSINOPHILS % (AUTO) 2.5 % (0-6); HEMATOCRIT 32.2 % (42.0-52.0); HEMOGLOBIN 10.4 g/dl (14.0-17.9); LYMPHOCYTES # (AUTO) 1.2 X10'3 (1.1-4.8); LYMPHOCYTES % (AUTO) 19.7 % (21-51); MEAN CORPUSCULAR HEMOGLOBIN 28.2 PG (27.0-31.0); MEAN CORPUSCULAR HGB CONC 32.4 g/dL (33.0-36.5); MEAN CORPUSCULAR VOLUME 86.9 FL (78-98); MEAN PLATELET VOLUME 6.9 FL (7.4-10.4); MONOCYTES # (AUTO) 0.3 X10'3 (0-0.9); MONOCYTES % (AUTO) 4.8 % (2-12); NEUTROPHILS # (AUTO) 4.4 X10'3 (1.8-7.7); NEUTROPHILS % (AUTO) 72.3 % (42-75); PLATELET COUNT 352 X10'3 (140-440); RED BLOOD COUNT 3.71 X10'6 (4.70-6.10); RED CELL DISTRIBUTION WIDTH 13.8 % (11.5-14.5); WHITE BLOOD COUNT 6.1 X10'3 (4.5-11.0)
[2022-07-24] MEDS: K and/or MAG REPLACEMENT MC SCH ×2 (08:00→20:00)
[2022-07-24] MEDS: docusate sod 100mg capsule PO SCH ×2 (08:00→20:00)
[2022-07-24] MEDS: magnesium hydroxide 30ml (MOM) UD suspension PO SCH (08:30)
[2022-07-24] MEDS: docusate sodium 100mg/10ml UD cup NG SCH ×2 (08:30→22:25)
[2022-07-24] MEDS: nicotine 21mg patch - 24 hr TD SCH (08:30)
--- NOTE | 2022-07-24 09:14 | NUR ---
Unable to flush NG tube, able to verify placement, will not pass H2O. Xray ordered to verify placement
[2022-07-24] MEDS: ondansetron 4mg rapidly disintigrating tab PO PRN (09:45)
[2022-07-24 10:00] VITALS: BP 138/92
--- NOTE | 2022-07-24 12:11 | NUR ---
Orders to DC NG tube per MD, no replacement orders at this time.
--- NOTE | 2022-07-24 17:30 | NUR ---
I have reviewed and agree with interventions, assessments, and documentation by Shauna Champagne LVN.
[2022-07-24 18:30] VITALS: BP 130/86
--- NOTE | 2022-07-24 18:30 | NUR ---
Patient in room ORTH[facility] 4006. I have received report from MIGUEL ANGEL WEINBERG and had the opportunity to ask questions and assume patient care.
[2022-07-24 22:00] VITALS: BP 112/63
[2022-07-25] MEDS: HYDROmorphone 1 mg/ml syringe IV PRN ×2 (02:40→07:45)
[2022-07-25] MEDS: potassium Cl 20mEq in NS 1,000 ML IV SCH ×3 (02:44→16:00)
[2022-07-25 06:00] VITALS: BP 99/65
--- NOTE | 2022-07-25 06:27 | NUR ---
Problems reprioritized. Patient report given, questions answered & plan of care reviewed with MIGUEL ANGEL WEINBERG.
[2022-07-25] MEDS: docusate sodium 100mg/10ml UD cup NG SCH ×2 (07:35→22:21)
[2022-07-25] MEDS: docusate sod 100mg capsule PO SCH ×2 (07:35→22:31)
[2022-07-25] MEDS: magnesium hydroxide 30ml (MOM) UD suspension PO SCH (07:35)
[2022-07-25] MEDS: nicotine 21mg patch - 24 hr TD SCH (07:43)
[2022-07-25 07:45] LABS: ANION GAP 8 (8-16); BLOOD UREA NITROGEN 13 MG/DL (7-18); BUN/CREATININE RATIO 13.3 (10.0-20.0); CALCIUM 7.6 MG/DL (8.5-10.1); CHLORIDE 103 MMOL/L (99-107); CREATININE 0.98 MG/DL (0.60-1.10); GLUCOSE 106 MG/DL (70-104); POTASSIUM 3.9 MMOL/L (3.5-5.1); SODIUM 138 MMOL/L (135-145); TOTAL CARBON DIOXIDE 27.2 MMOL/L (24-32); eGFR 77 ML/MIN
[2022-07-25] MEDS: pantoprazole 40MG/NS 100ML BAG 100 ML IV SCH ×2 (07:45→21:34)
[2022-07-25 07:46] LABS: ALANINE AMINOTRANSFERASE 17 U/L (12-78); ALBUMIN 2.4 G/DL (3.4-5.0); ALBUMIN/GLOBULIN RATIO 0.9 (1.1-1.5); ALKALINE PHOSPHATASE 57 IU/L (46-116); ASPARTATE AMINO TRANSFERASE 15 U/L (10-37); BASOPHILS % (AUTO) 0.6 % (0-1); BILIRUBIN,TOTAL 0.2 MG/DL (0.1-1.0); EOSINOPHILS # (AUTO) 0.1 X10'3 (0-0.9); HEMATOCRIT 30.9 % (42.0-52.0); HEMOGLOBIN 10.1 g/dl (14.0-17.9); LYMPHOCYTES # (AUTO) 1.5 X10'3 (1.1-4.8); LYMPHOCYTES % (AUTO) 35.1 % (21-51); MAGNESIUM 1.9 MG/DL (1.5-2.4); MEAN CORPUSCULAR HEMOGLOBIN 28.2 PG (27.0-31.0); MEAN CORPUSCULAR HGB CONC 32.6 g/dL (33.0-36.5); MEAN CORPUSCULAR VOLUME 86.3 FL (78-98); MEAN PLATELET VOLUME 6.7 FL (7.4-10.4); MONOCYTES # (AUTO) 0.3 X10'3 (0-0.9); NEUTROPHILS # (AUTO) 2.3 X10'3 (1.8-7.7); NEUTROPHILS % (AUTO) 54.3 % (42-75); PHOSPHORUS 1.9 MG/DL (2.3-4.5); PLATELET COUNT 332 X10'3 (140-440); RED BLOOD COUNT 3.58 X10'6 (4.70-6.10); RED CELL DISTRIBUTION WIDTH 13.7 % (11.5-14.5); TOTAL PROTEIN 5.2 G/DL (6.4-8.2); WHITE BLOOD COUNT 4.2 X10'3 (4.5-11.0)
[2022-07-25] MEDS: K and/or MAG REPLACEMENT MC SCH ×2 (08:00→20:00)
[2022-07-25 10:00] VITALS: BP 118/70
--- NOTE | 2022-07-25 10:00 | NUR ---
MD rounds- if GI contrast procedure goes well may advance to regular diet per specialist. If the xray results don't look good, surgery.
--- NOTE | 2022-07-25 14:04 | NUR ---
Received order for consult. Not appropriate referral. Did not meet with patient.
--- NOTE | 2022-07-25 14:49 | NUR ---
F/u 07/25: Pt has been NPO w/ NG in place past 4 days advanced to clear liquids PO 50% first meal last night following NG removal yesterday per EMR. Pt NPO now pending upper GI series report in EMR. Pt now 5 days no nutrition in addition to already being severely malnourished on admit. LUIS A d/w MEAT AND SEAFOOD CLERK and miguel angel DO recommends PPN in interim IF patients diet not to advance and physician agreeable. IF pt to continue on clear liquids for further prolonged period and EN contraindicated by GI findings; TPN would be more appropriate for nutrition repletion needs. LBM 07/23. Will monitor for further nutrition intervention needs this admit. Recommendations: 1) IF pt to remain on clear liquids consider PPN in interim for nutrition repletion given malnutrition status and only PIV access 2) IF pt anticipated to have restrictive liquids diet for at least 7-10 days and EN contraindicated; TPN for nutrition repletion needs 3) Advance to regular diet as medically indicated 4) Consider Ensure Enlive TID for nutrition repletion with diet advancement 5) Routine bowel care 6) Scaled weight this admit; subsequent weekly scaled weights Addendum: 07/25/22 at [address] Amended: Links added.
--- NOTE | 2022-07-25 15:58 | NUR ---
PPN Consult: DO TC; agreeable to PPN at this time pending pt diet progression this admit. Unable to meet estimated kcal needs given nature of PPN though will assist w/ pt nutrition repletion. PPN recs below will monitor for tolerance and adjustment needs as medically indicated. Recommendations: 1) Continuous PPN per DO via peripheral line using 2:1 Clinimix E 4.25/5 at 100ml/hr goal w/ separate 100ml 20% ILE to run for 12 hours each day at 8.33ml/hr. In total, to provide 2400ml volume/day, 102g AA, 120g DEX(0.83mg/kg/min), and 1016 kcals/day. 2) PALB Q /; daily scaled wt 3) Monitor PN tolerance for signs of refeeding given malnutrition status 4) IF pt anticipated to have restrictive liquids diet for at least 7-10 days and EN contraindicated; consider TPN for nutrition repletion needs 5) Advance to regular diet as medically indicated 6) Consider Ensure Enlive TID for nutrition repletion with diet advancement 7) Routine bowel care Addendum: 07/25/22 at [address] Amended: Links added.
--- NOTE | 2022-07-25 16:30 | NUR ---
TOV regular diet orders per specialist
[2022-07-25] MEDS ORDERED: Dextrose 10%-water IV solution 1,000 ML IV PRN (17:00)
[2022-07-25 17:08] LABS: MAGNESIUM 1.8 MG/DL (1.5-2.4); PHOSPHORUS 2.1 MG/DL (2.3-4.5)
[2022-07-25 18:00] VITALS: BP 96/55
--- NOTE | 2022-07-25 18:00 | NUR ---
I have reviewed and agree with interventions, assessments, and documentation by Shauna Champagne LVN.
--- NOTE | 2022-07-25 18:34 | NUR ---
Problems reprioritized. Patient report given, questions answered & plan of care reviewed with Brenna WEINBERG.
[2022-07-25] MEDS ORDERED: SELENIUM IV SCH (19:00)
[2022-07-25] MEDS ORDERED: [UNRECOGNIZED DRUG - OTHER] IV SCH (19:00)
[2022-07-25] MEDS ORDERED: CHROMIC CHLORIDE IV SCH (19:00)
[2022-07-25] MEDS ORDERED: fat emulsion 20% inj. 100 ML IV SCH (19:00)
[2022-07-25] MEDS ORDERED: MANGANESE IV SCH (19:00)
[2022-07-25] MEDS ORDERED: ZINC IV SCH (19:00)
[2022-07-25] MEDS ORDERED: COPPER IV SCH (19:00)
[2022-07-25] MEDS ORDERED: MVI, adult No.4 with vit. K 10 ML in dextrose 5% water 500ml 500 ML IV SCH ×2 (19:00)
[2022-07-25] MEDS: HYDROcodone/acetaminophen 5mg/325mg tablet PO PRN (19:24)
[2022-07-25] MEDS: ondansetron/PF 4mg/2ml inj IV PRN (20:37)
[2022-07-25 22:00] VITALS: BP 116/76
[2022-07-26] MEDS: potassium Cl 20mEq in NS 1,000 ML IV SCH ×2 (05:38)
[2022-07-26 06:00] VITALS: BP 114/81
[2022-07-26 06:20] LABS: BASOPHILS % (AUTO) 0.5 % (0-1); EOSINOPHILS % (AUTO) 1.5 % (0-6); HEMATOCRIT 27.6 % (42.0-52.0); LYMPHOCYTES % (AUTO) 32.8 % (21-51); MEAN CORPUSCULAR HGB CONC 32.7 g/dL (33.0-36.5); MEAN CORPUSCULAR VOLUME 85.6 FL (78-98); MEAN PLATELET VOLUME 6.8 FL (7.4-10.4); MONOCYTES # (AUTO) 0.3 X10'3 (0-0.9); MONOCYTES % (AUTO) 9.2 % (2-12); NEUTROPHILS # (AUTO) 1.8 X10'3 (1.8-7.7); PLATELET COUNT 272 X10'3 (140-440); RED BLOOD COUNT 3.23 X10'6 (4.70-6.10); RED CELL DISTRIBUTION WIDTH 14.1 % (11.5-14.5); WHITE BLOOD COUNT 3.2 X10'3 (4.5-11.0)
--- NOTE | 2022-07-26 06:30 | NUR ---
Problems reprioritized. Patient report given, questions answered & plan of care reviewed with ACE WEINBERG.
--- NOTE | 2022-07-26 06:45 | NUR ---
Patient in room ORTHO 4006. I have received report from Brenna and had the opportunity to ask questions and assume patient care.
[2022-07-26 06:56] LABS: ALANINE AMINOTRANSFERASE 15 U/L (12-78); ALBUMIN 2.4 G/DL (3.4-5.0); ALBUMIN/GLOBULIN RATIO 0.9 (1.1-1.5); ALKALINE PHOSPHATASE 51 IU/L (46-116); ANION GAP 9 (8-16); ASPARTATE AMINO TRANSFERASE 18 U/L (10-37); BILIRUBIN,TOTAL 0.2 MG/DL (0.1-1.0); BLOOD UREA NITROGEN 12 MG/DL (7-18); BUN/CREATININE RATIO 12.6 (10.0-20.0); CALCIUM 7.8 MG/DL (8.5-10.1); CHLORIDE 103 MMOL/L (99-107); CREATININE 0.95 MG/DL (0.60-1.10); GLUCOSE 131 MG/DL (70-104); PHOSPHORUS 2.7 MG/DL (2.3-4.5); POTASSIUM 4.1 MMOL/L (3.5-5.1); SODIUM 137 MMOL/L (135-145); TOTAL CARBON DIOXIDE 25.3 MMOL/L (24-32); TOTAL PROTEIN 5.1 G/DL (6.4-8.2); eGFR 79 ML/MIN
[2022-07-26] MEDS ORDERED: Dextrose 10%-water IV solution 1,000 ML IV PRN (07:15)
--- NOTE | 2022-07-26 07:23 | NUR ---
Problems reprioritized. Patient report given, questions answered & plan of care reviewed with Acrlie.
[2022-07-26] MEDS: docusate sodium 100mg/10ml UD cup NG SCH (08:00)
[2022-07-26] MEDS ORDERED: amoxicillin 250mg capsule PO SCH (08:00)
[2022-07-26] MEDS: nicotine 21mg patch - 24 hr TD SCH (08:00)
[2022-07-26] MEDS: K and/or MAG REPLACEMENT MC SCH (08:00)
[2022-07-26] MEDS ORDERED: clarithromycin 250mg tablet PO SCH (08:00)
[2022-07-26] MEDS ORDERED: bismuth subsalicylate 262mg chew tablet PO SCH (08:00)
[2022-07-26] MEDS: docusate sod 100mg capsule PO SCH (08:00)
[2022-07-26] MEDS: magnesium hydroxide 30ml (MOM) UD suspension PO SCH (08:00)
[2022-07-26] MEDS: pantoprazole 40MG/NS 100ML BAG 100 ML IV SCH (08:08)
[2022-07-26] MEDS ORDERED: metroNIDAZOLE 500mg tablet PO SCH (08:15)
[2022-07-26] MEDS: HYDROcodone/acetaminophen 5mg/325mg tablet PO PRN (08:15)
[2022-07-26] MEDS ORDERED: DOXYCYCLINE 100MG CAPSULE PO SCH (08:30)
--- NOTE | 2022-07-26 08:43 | NUR ---
F/u 07/26: Pt advanced to regular diet per surgeon last night PO 75% first solid meal WS and 100% this AM per RN. Per DO, PPN to stop at this time given diet advancement/tolerance. Recommendations: 1) Continue regular diet per MD; encourage PO 2) monitor further PO trends for ONS needs; first solids intake adequate 3) Routine bowel care Addendum: 07/26/22 at [address] Amended: Links added.
[2022-07-26] MEDS ORDERED: DOXY-224 PO (09:41)
[2022-07-26] MEDS ORDERED: PANT-47 PO (09:41)
[2022-07-26] MEDS ORDERED: METR-159 PO (09:41)
[2022-07-26] MEDS ORDERED: NICO-687 TD (09:41)
[2022-07-26] MEDS ORDERED: BISM-155 PO ×3 (09:41→09:53)
[2022-07-26 10:00] VITALS: BP 99/62
[2022-07-26] MEDS ORDERED: bismuth subsalicylate 262mg/15ml oral suspension PO SCH ×3 (10:53→11:03)
--- NOTE | 2022-07-26 12:42 | NUR ---
Patient was discharged with instructions verbalizing understanding of instructions, in wheelchair accompanied by family and nursing staff going home via private vehicle. All lines and tubes including PIV with cannula intact have been removed. Education has been provided at bedside and all questions have been answered. Patient is stable and appropriate for discharge.l
== END 2022-07-26 12:35 | disposition home or self-care (01) | DRG 241 ==
LOC: ER 19:55 → ED HOLD 07-21 08:07 → CANBEDREQ 07-21 12:33 → ORTHO 4S 07-21 15:15
PROVIDERS: ADMIT Family Medicine; ATTEND Family Medicine
PROC: 0D9670Z Drainage of Stomach with Drainage Device, Via Natural or Artificial Opening (ICD-10-PCS; 2022-07-21)
PROC: BW251ZZ Computerized Tomography (CT Scan) of Chest, Abdomen and Pelvis using Low Osmolar Contrast (ICD-10-PCS; principal; 2022-07-22)
PROC: 0DB98ZX Excision of Duodenum, Via Natural or Artificial Opening Endoscopic, Diagnostic (ICD-10-PCS; 2022-07-23)
PROC: 0DB78ZX Excision of Stomach, Pylorus, Via Natural or Artificial Opening Endoscopic, Diagnostic (ICD-10-PCS; 2022-07-23)
PROC: 0DB58ZX Excision of Esophagus, Via Natural or Artificial Opening Endoscopic, Diagnostic (ICD-10-PCS; 2022-07-23)
DX: K26.3 Acute duodenal ulcer without hemorrhage or perforation (principal); N17.0 Acute kidney failure with tubular necrosis; E43 Unspecified severe protein-calorie malnutrition; K31.1 Adult hypertrophic pyloric stenosis; K31.5 Obstruction of duodenum; B96.81 Helicobacter pylori [H. pylori] as the cause of diseases classified elsewhere; E86.0 Dehydration; E87.6 Hypokalemia; K31.84 Gastroparesis; K59.00 Constipation, unspecified; F17.210 Nicotine dependence, cigarettes, uncomplicated; F15.90 Other stimulant use, unspecified, uncomplicated; F12.90 Cannabis use, unspecified, uncomplicated; K25.9 Gastric ulcer, unspecified as acute or chronic, without hemorrhage or perforation; K31.89 Other diseases of stomach and duodenum; R93.3 Abnormal findings on diagnostic imaging of other parts of digestive tract; K21.00 Gastro-esophageal reflux disease with esophagitis, without bleeding; K29.70 Gastritis, unspecified, without bleeding; N18.9 Chronic kidney disease, unspecified; N39.0 Urinary tract infection, site not specified; B19.20 Unspecified viral hepatitis C without hepatic coma; R63.4 Abnormal weight loss; Z68.1 Body mass index [BMI] 19.9 or less, adult; Z84.89 Family history of other specified conditions; Z71.6 Tobacco abuse counseling
CPT/HCPCS: 36415; 43239; 71260; 74018; 74176; 74177; 74240; 80053; 81001; 82150; 82948; 83690; 83735; 84100; 84134; 84443; 84478; 85025; 87081; 87088; 93005; 99152; 99153; 99285; A4620; C9113; G0378; J0696; J1170; J1644; J2250; J2270; J2405; J2765; J3010; J3480; J3490; J7030; J7060; Q9963; Q9967

== ENCOUNTER 2022-09-05 13:14 | Inpatient (IN) | payer MEDICAID ==
[~2022-09-05] VITALS: Ht 170.2 cm; Wt 59.0 kg
[~2022-09-05 13:14] MED LIST changes: +BISM-155 PO; +DOXY-224 PO; +FAMO-128 PO; +METR-159 PO; -POTA-207 PO
[2022-09-05] MEDS ORDERED: normal saline 1000ML IV soln IVB ONE (13:40)
[2022-09-05 14:04] LABS: BASOPHILS % (AUTO) 0.2 % (0-1); EOSINOPHILS % (AUTO) 0 % (0-6); HEMATOCRIT 43.6 % (42.0-52.0); HEMOGLOBIN 14.1 g/dl (14.0-17.9); LYMPHOCYTES # (AUTO) 0.8 X10'3 (1.1-4.8); MEAN CORPUSCULAR HEMOGLOBIN 26.1 PG (27.0-31.0); MEAN CORPUSCULAR HGB CONC 32.2 g/dL (33.0-36.5); MEAN PLATELET VOLUME 7.2 FL (7.4-10.4); MONOCYTES # (AUTO) 1.8 X10'3 (0-0.9); MONOCYTES % (AUTO) 11.7 % (2-12); NEUTROPHILS # (AUTO) 12.6 X10'3 (1.8-7.7); NEUTROPHILS % (AUTO) 83.1 % (42-75); PLATELET COUNT 411 X10'3 (140-440); RED BLOOD COUNT 5.39 X10'6 (4.70-6.10); RED CELL DISTRIBUTION WIDTH 15.9 % (11.5-14.5); WHITE BLOOD COUNT 15.2 X10'3 (4.5-11.0)
[2022-09-05 14:34] LABS: ALANINE AMINOTRANSFERASE 23 U/L (12-78); ALBUMIN 4.2 G/DL (3.4-5.0); ALBUMIN/GLOBULIN RATIO 0.9 (1.1-1.5); ALKALINE PHOSPHATASE 106 IU/L (46-116); ANION GAP 27 (8-16); ASPARTATE AMINO TRANSFERASE 31 U/L (10-37); BILIRUBIN,TOTAL 0.4 MG/DL (0.1-1.0); BLOOD UREA NITROGEN 82 MG/DL (7-18); BUN/CREATININE RATIO 11.9 (10.0-20.0); CALCIUM 8.7 MG/DL (8.5-10.1); CHLORIDE 91 MMOL/L (99-107); CREATININE 6.88 MG/DL (0.60-1.10); GLUCOSE 143 MG/DL (70-104); LIPASE 55 U/L (73-393); POTASSIUM 4.3 MMOL/L (3.5-5.1); SODIUM 137 MMOL/L (135-145); TOTAL CARBON DIOXIDE 18.8 MMOL/L (24-32); TOTAL PROTEIN 8.9 G/DL (6.4-8.2); eGFR 8 ML/MIN
[2022-09-05] MEDS ORDERED: piperacillin/tazo 3.375gm/50ml 50 ML IV ONE (15:25)
[2022-09-05] MEDS ORDERED: normal saline 1000ml 1,000 ML IV ONE (15:25)
[2022-09-05] MEDS ORDERED: morphine 4 MG/ML inj SYRINge IV ONE (15:25)
[2022-09-05 16:32] LABS: CLARITY,URINE CLOUDY (Clear); COLOR,URINE YELLOW (Yellow); GLUCOSE, URINE NEGATIVE (Neg); KETONES,URINE TRACE mg/dl (Neg); LEUKOCYTE ESTERASE ,URINE NEGATIVE (Neg); OCCULT BLOOD,URINE MODERATE (Neg); PH,URINE 5.5 (4.8-8.0); PROTEIN,URINE 100 mg/dl (Neg); UROBILINOGEN,URINE 0.2 E.U/dL (0.2-1.0)
[2022-09-05 16:38] LABS: NITRITES, URINE NEGATIVE (Neg); UA COLLECTION TYPE FOLEY CATH
[2022-09-05 16:43] LABS: BACTERIA,URINE 2+ /HPF (Neg); RBC,URINE TNTC /HPF (0-2)
[2022-09-05 16:44] LABS: SQUAMOUS EPITHELIAL CELL,UR FEW /LPF (FEW)
[2022-09-05 16:45] LABS: TRANSITIONAL EPI CELLS,URINE FEW /HPF
[2022-09-05 16:46] LABS: CELLULAR CAST 0-4 /LPF (NEGATIVE); COARSE GRANULAR CAST 0-3 /LPF (NEGATIVE); WBC CLUMPS,URINE FEW /HPF (NEGATIVE)
[2022-09-05] MEDS ORDERED: PANT40TA54 PO (17:07)
[2022-09-05] MEDS ORDERED: magnesium 4gm in 100ml NS 100 ML IV PRN (17:35)
[2022-09-05] MEDS ORDERED: magnesium 2GM in 50ml NS 50 ML IV PRN (17:35)
[2022-09-05] MEDS ORDERED: acetaminophen 325mg tablet PO PRN (17:35)
[2022-09-05] MEDS ORDERED: potassium Cl 40MEQ/1/2NS 520ml 520 ML IV PRN (17:35)
[2022-09-05] MEDS ORDERED: morphine 2 MG/ML inj. syringe IV PRN (17:35)
[2022-09-05] MEDS ORDERED: potassium Cl 20 mEq SR tablet PO PRN ×2 (17:35)
[2022-09-05] MEDS: sodium bicarbonate (8.4%) inj. 100 MEQ in dextrose 5%-water 1,000 ML IV SCH (18:02)
[2022-09-05 18:27] LABS: ALBUMIN 3.6 G/DL (3.4-5.0); ANION GAP 18 (8-16); BLOOD UREA NITROGEN 85 MG/DL (7-18); BUN/CREATININE RATIO 13.3 (10.0-20.0); CHLORIDE 99 MMOL/L (99-107); CREATININE 6.41 MG/DL (0.60-1.10); GLUCOSE 131 MG/DL (70-104); POTASSIUM 4.6 MMOL/L (3.5-5.1); SODIUM 138 MMOL/L (135-145); TOTAL CARBON DIOXIDE 21.3 MMOL/L (24-32); eGFR 9 ML/MIN
[2022-09-05] MEDS: K and/or MAG REPLACEMENT MC SCH (20:00)
[2022-09-05] MEDS: heparin, porcine 5000 units/ml vial SQ SCH (20:48)
[2022-09-05] MEDS: pantoprazole 40MG/NS 100ML BAG 100 ML IV SCH (21:21)
[2022-09-05] MEDS: diatr meglu/diatrizoate 30ml oral sol.-(3 dose) bottle PO SCH (21:25)
--- NOTE | 2022-09-05 22:54 | NUR ---
Received report from Rojas MATTHEWS nurse. Patient to follow shortly.
--- NOTE | 2022-09-05 23:05 | NUR ---
Patient arrived to floor from ER via gurney. A&O, transferred over to bed and suction restarted at 125 low intermittent suction. It was reported from ER nurse that there was a total of 700cc brown fecal looking drainage earlier, but has since been clamped after receiving 230cc with the gastro view.
[2022-09-05 23:10] VITALS: BP 146/101; PULSE 122; TEMP 98.2; O2SAT 96
[2022-09-05 23:20] VITALS: RESP 16; O2SAT 96
[2022-09-05] MEDS: morphine 2 MG/ML inj. syringe IV PRN (23:25)
[2022-09-06] VITALS (8 sets, daily range): BP systolic 135–146; BP diastolic 75–100; PULSE 101–119; RESP 18–19; TEMP 98.2–98.6; O2SAT 93–99
[2022-09-06] MEDS: pantoprazole 40MG/NS 100ML BAG 100 ML IV SCH ×5 (01:00→22:33)
[2022-09-06] MEDS: sodium bicarbonate (8.4%) inj. 100 MEQ in dextrose 5%-water 1,000 ML IV SCH ×2 (04:35→05:32)
[2022-09-06] MEDS: morphine 2 MG/ML inj. syringe IV PRN ×4 (06:18→18:05)
--- NOTE | 2022-09-06 06:35 | NUR ---
Problems reprioritized. Patient report given, questions answered & plan of care reviewed with Marcelle WEINBERG.
[2022-09-06 06:56] LABS: BASOPHILS % (AUTO) 0.1 % (0-1); EOSINOPHILS % (AUTO) 0 % (0-6); HEMATOCRIT 40.2 % (42.0-52.0); HEMOGLOBIN 13.4 g/dl (14.0-17.9); LYMPHOCYTES # (AUTO) 0.6 X10'3 (1.1-4.8); LYMPHOCYTES % (AUTO) 5.9 % (21-51); MEAN CORPUSCULAR HEMOGLOBIN 26.8 PG (27.0-31.0); MEAN CORPUSCULAR HGB CONC 33.3 g/dL (33.0-36.5); MEAN CORPUSCULAR VOLUME 80.4 FL (78-98); MEAN PLATELET VOLUME 7.4 FL (7.4-10.4); MONOCYTES # (AUTO) 1.8 X10'3 (0-0.9); MONOCYTES % (AUTO) 19.2 % (2-12); NEUTROPHILS # (AUTO) 7.1 X10'3 (1.8-7.7); NEUTROPHILS % (AUTO) 74.8 % (42-75); PLATELET COUNT 290 X10'3 (140-440); RED CELL DISTRIBUTION WIDTH 15.8 % (11.5-14.5); WHITE BLOOD COUNT 9.4 X10'3 (4.5-11.0)
[2022-09-06 07:27] LABS: ALANINE AMINOTRANSFERASE 22 U/L (12-78); ALBUMIN 3.1 G/DL (3.4-5.0); ALBUMIN/GLOBULIN RATIO 0.8 (1.1-1.5); ALKALINE PHOSPHATASE 70 IU/L (46-116); ANION GAP 21 (8-16); ASPARTATE AMINO TRANSFERASE 40 U/L (10-37); BILIRUBIN,TOTAL 0.5 MG/DL (0.1-1.0); BLOOD UREA NITROGEN 104 MG/DL (7-18); BUN/CREATININE RATIO 14.9 (10.0-20.0); CALCIUM 7.6 MG/DL (8.5-10.1); CHLORIDE 93 MMOL/L (99-107); CREATININE 6.99 MG/DL (0.60-1.10); GLUCOSE 130 MG/DL (70-104); MAGNESIUM 2.4 MG/DL (1.5-2.4); POTASSIUM 4.2 MMOL/L (3.5-5.1); SODIUM 136 MMOL/L (135-145); TOTAL CARBON DIOXIDE 21.6 MMOL/L (24-32); TOTAL PROTEIN 7.2 G/DL (6.4-8.2); eGFR 8 ML/MIN
[2022-09-06] MEDS: nicotine 21mg patch - 24 hr TD SCH (07:38)
[2022-09-06] MEDS: heparin, porcine 5000 units/ml vial SQ SCH ×2 (07:38→19:46)
[2022-09-06] MEDS: diatr meglu/diatrizoate 30ml oral sol.-(3 dose) bottle PO SCH ×2 (07:39→09:59)
[2022-09-06] MEDS ORDERED: PERFLUTREN PROTEIN-A MICROSPHR (Optison) 0.22 MG/ML 3ML VIAL IV ONE (07:50)
[2022-09-06] MEDS: K and/or MAG REPLACEMENT MC SCH ×2 (08:00→19:43)
[2022-09-06] MEDS: normal saline 1000ml 1,000 ML IV SCH ×4 (08:30→19:47)
[2022-09-06 10:06] LABS: TOTAL CELLS COUNTED 100
[2022-09-06 10:09] LABS: ANISOCYTOSIS 1+; PLATELET ESTIMATE NORMAL
[2022-09-06] MEDS ORDERED: normal saline 1000ml 1,000 ML IV ONE ×2 (15:45→16:40)
[2022-09-06] MEDS ORDERED: morphine 2 MG/ML inj. syringe IV ONE (18:30)
--- NOTE | 2022-09-06 18:33 | NUR ---
Patient in room ORTHO 4011. I have received report from Ivan no and had the opportunity to ask questions and assume patient care.
[2022-09-06 19:57] LABS: ALANINE AMINOTRANSFERASE 25 U/L (12-78); ALBUMIN 2.5 G/DL (3.4-5.0); ALBUMIN/GLOBULIN RATIO 0.6 (1.1-1.5); ALKALINE PHOSPHATASE 55 IU/L (46-116); ANION GAP 18 (8-16); ASPARTATE AMINO TRANSFERASE 33 U/L (10-37); BILIRUBIN,TOTAL 0.5 MG/DL (0.1-1.0); BLOOD UREA NITROGEN 113 MG/DL (7-18); BUN/CREATININE RATIO 16.6 (10.0-20.0); CALCIUM 6.8 MG/DL (8.5-10.1); CHLORIDE 101 MMOL/L (99-107); CREATININE 6.81 MG/DL (0.60-1.10); GLUCOSE 110 MG/DL (70-104); MAGNESIUM 2.3 MG/DL (1.5-2.4); PHOSPHORUS 7.2 MG/DL (2.3-4.5); POTASSIUM 4.2 MMOL/L (3.5-5.1); SODIUM 140 MMOL/L (135-145); TOTAL CARBON DIOXIDE 20.7 MMOL/L (24-32); TOTAL PROTEIN 6.4 G/DL (6.4-8.2); eGFR 8 ML/MIN
[2022-09-07] VITALS (22 sets, daily range): BP systolic 102–160; BP diastolic 75–107; PULSE 64–116; RESP 16–24; TEMP 97.3–98.6; O2SAT 94–100
[2022-09-07] MEDS: morphine 2 MG/ML inj. syringe IV PRN ×5 (00:07→20:33)
[2022-09-07] MEDS: pantoprazole 40MG/NS 100ML BAG 100 ML IV SCH ×5 (01:00→21:17)
[2022-09-07 01:09] LABS: ALANINE AMINOTRANSFERASE 23 U/L (12-78); ALBUMIN 2.3 G/DL (3.4-5.0); ALBUMIN/GLOBULIN RATIO 0.6 (1.1-1.5); ALKALINE PHOSPHATASE 50 IU/L (46-116); ANION GAP 18 (8-16); ASPARTATE AMINO TRANSFERASE 30 U/L (10-37); BILIRUBIN,TOTAL 0.4 MG/DL (0.1-1.0); BLOOD UREA NITROGEN 114 MG/DL (7-18); BUN/CREATININE RATIO 17.7 (10.0-20.0); CALCIUM 6.5 MG/DL (8.5-10.1); CHLORIDE 104 MMOL/L (99-107); CREATININE 6.43 MG/DL (0.60-1.10); GLUCOSE 101 MG/DL (70-104); POTASSIUM 4.1 MMOL/L (3.5-5.1); SODIUM 142 MMOL/L (135-145); TOTAL CARBON DIOXIDE 19.7 MMOL/L (24-32); eGFR 9 ML/MIN
[2022-09-07] MEDS: ondansetron/PF 4mg/2ml inj IV PRN (03:50)
[2022-09-07] MEDS: normal saline 1000ml 1,000 ML IV SCH ×3 (04:03→18:07)
--- NOTE | 2022-09-07 06:10 | NUR ---
Received critical lab on blood culture from R hand aerobic bottle = gram + cocci in clusters.Took 34 hrs to detect. New order : vancomycin 1 gm IV daily.
--- NOTE | 2022-09-07 06:20 | NUR ---
Problems reprioritized. Patient report given, questions answered & plan of care reviewed with Marcelle WEINBERG.
[2022-09-07 06:46] LABS: BASOPHILS % (AUTO) 0 % (0-1); EOSINOPHILS % (AUTO) 0 % (0-6); HEMATOCRIT 34.4 % (42.0-52.0); LYMPHOCYTES # (AUTO) 0.4 X10'3 (1.1-4.8); LYMPHOCYTES % (AUTO) 5.7 % (21-51); MEAN CORPUSCULAR HEMOGLOBIN 26.1 PG (27.0-31.0); MEAN CORPUSCULAR HGB CONC 32.1 g/dL (33.0-36.5); MEAN CORPUSCULAR VOLUME 81.3 FL (78-98); MEAN PLATELET VOLUME 7.2 FL (7.4-10.4); MONOCYTES # (AUTO) 0.7 X10'3 (0-0.9); MONOCYTES % (AUTO) 10.6 % (2-12); NEUTROPHILS # (AUTO) 5.8 X10'3 (1.8-7.7); NEUTROPHILS % (AUTO) 83.7 % (42-75); PLATELET COUNT 284 X10'3 (140-440); RED BLOOD COUNT 4.23 X10'6 (4.70-6.10)
[2022-09-07] MEDS ORDERED: VANCOmycin 1250MG/NS 250ml Bag 250 ML IV ONE (07:00)
[2022-09-07 07:01] LABS: ALANINE AMINOTRANSFERASE 25 U/L (12-78); ALBUMIN 2.5 G/DL (3.4-5.0); ALBUMIN/GLOBULIN RATIO 0.7 (1.1-1.5); ALKALINE PHOSPHATASE 57 IU/L (46-116); ANION GAP 22 (8-16); ASPARTATE AMINO TRANSFERASE 36 U/L (10-37); BILIRUBIN,TOTAL 0.4 MG/DL (0.1-1.0); BLOOD UREA NITROGEN 125 MG/DL (7-18); BUN/CREATININE RATIO 19.4 (10.0-20.0); CALCIUM 6.6 MG/DL (8.5-10.1); CHLORIDE 103 MMOL/L (99-107); CREATININE 6.43 MG/DL (0.60-1.10); GLUCOSE 96 MG/DL (70-104); MAGNESIUM 2.3 MG/DL (1.5-2.4); POTASSIUM 4.2 MMOL/L (3.5-5.1); SODIUM 142 MMOL/L (135-145); TOTAL CARBON DIOXIDE 17.4 MMOL/L (24-32); TOTAL PROTEIN 6.2 G/DL (6.4-8.2); eGFR 9 ML/MIN
[2022-09-07] MEDS: nicotine 21mg patch - 24 hr TD SCH (07:26)
[2022-09-07] MEDS: heparin, porcine 5000 units/ml vial SQ SCH ×2 (07:31→20:57)
[2022-09-07] MEDS: K and/or MAG REPLACEMENT MC SCH ×2 (08:00→20:00)
[2022-09-07] MEDS ORDERED: mannitol 12.5gm/50mL VIAL IV ONE (08:45)
[2022-09-07] MEDS ORDERED: heparin 1,000 units/ml 10ml inj HE ONE (08:45)
[2022-09-07] MEDS ORDERED: normal saline 1000ml 250 ML IV PRN (08:45)
[2022-09-07] MEDS ORDERED: normal saline 1000ml 100 ML IV PRN (08:45)
[2022-09-07] MEDS ORDERED: morphine 2 MG/ML inj. syringe IV ONE (10:45)
[2022-09-07] MEDS ORDERED: vancomycin/NS 1 GM ADD-VANTAGE 250 ML IV PRN (11:00)
[2022-09-07] MEDS ORDERED: LIDOcaine 1% (10mg/ml)w/preservative inj. 20ml MDV ONE (14:03)
[2022-09-07] MEDS ORDERED: midazolam 1 mg/ML 2ml injection ONE (14:04)
[2022-09-07] MEDS ORDERED: fentaNYL /PF 50mcg/ml 5ml ampule ONE (14:06)
[2022-09-07] MEDS ORDERED: labetalol 20mg/4ml (5mg/ml) syringe IV PRN (14:20)
[2022-09-07] MEDS ORDERED: ringers solution, lacted 1,000 ML IV SCH (14:20)
[2022-09-07] MEDS ORDERED: ondansetron/PF 4mg/2ml inj IV PRN (14:20)
[2022-09-07] MEDS ORDERED: acetaminophen 1,000mg/100ml IV 100 ML IV PRN (14:20)
[2022-09-07] MEDS ORDERED: proCHLORperazine 10 MG/2 ml inj IV PRN (14:20)
[2022-09-07] MEDS ORDERED: morphine 2 MG/ML inj. syringe IV PRN (14:20)
[2022-09-07] MEDS ORDERED: hydrALAZINE 20mg/ml inj. IV PRN (14:20)
[2022-09-07] MEDS ORDERED: HYDROmorphone/PF 0.2 MG/ML SYRINGE IV PRN (14:20)
[2022-09-07] MEDS ORDERED: pantoprazole 40 MG/NS 100ML add-vantage BAG IV ONE (14:25)
[2022-09-07] MEDS ORDERED: sevoflurane 250ml liquid IH ONE (14:25)
[2022-09-07] MEDS ORDERED: ceFOXitin 1000 MG inj ONE ×2 (15:01)
[2022-09-07] MEDS ORDERED: LIDOcaine 2% (20mg/ml) 5ml vial ONE (15:01)
[2022-09-07] MEDS ORDERED: propofol inj 20 ML IV ONE (15:01)
[2022-09-07] MEDS ORDERED: rocuronium 10mg/ml inj IV ONE (15:01)
[2022-09-07] MEDS ORDERED: dexamethasone sod phosphate 4mg/ml inj. ONE (15:03)
[2022-09-07] MEDS ORDERED: ondansetron/PF 4mg/2ml inj ONE (15:03)
[2022-09-07] MEDS ORDERED: glycopyrrolate 0.2mg/ml inj ONE (16:01)
[2022-09-07] MEDS ORDERED: neostigmine methylsulfate 1 MG/ML 10ml vial ONE (16:01)
[2022-09-07] MEDS ORDERED: morphine 10mg/ml inj. ONE (16:01)
--- NOTE | 2022-09-07 16:09 | NUR ---
Received from OR via HOSPITAL BED TO RR 5, accompanied by Anesthesiologist DR STODDARD and report given by Anesthesiolgist. PT IS MOANING AND MOVING HIS EXTREMETIES. ON 12L MASK WITH SPO2 AT 99%. NG TO SUCTION FROM RIGHT NARE. 18 G R AC, ART LINE R WRIST AND TDC TO RIGHT FEM. 18 G LEFT HAND. NS RUNNING AT 10 AND PROTONIX RUNNING AT 20ML/HR. F/C DRAINING TO GRAVITY. SCDS ON. WILL CONTINUE TO ASSESS.
--- NOTE | 2022-09-07 17:06 | NUR ---
D/C ART LINE FROM R WRIST. PRESSURE HELD FOR APPROPRIATE TIME. REPLACED GAUZE AND COVERED WITH COBAN: WILL CONTINUE TO MONITOR.
--- NOTE | 2022-09-07 17:29 | NUR ---
PATIENT TAKEN BACK TO ORTHO FLOOR ROOM 4011A WITH ALL BELONGINGS AND HOOKED UP TO ALL MONITORS IN ROOM. ABD DRESSING OUTLINED WITH SCANT DRAINAGE. REPORT GIVEN TO RNSHANELLE WHO HAS TAKEN OVER PATIENT CARE.
--- NOTE | 2022-09-07 20:34 | NUR ---
Ng tube to low continuous suction, pt refusing PO pain med at this time
[2022-09-08] VITALS (7 sets, daily range): BP systolic 131–159; BP diastolic 70–102; PULSE 56–105; RESP 14–20; TEMP 97.6–98; O2SAT 94–98
[2022-09-08] MEDS: morphine 2 MG/ML inj. syringe IV PRN ×5 (00:45→23:18)
[2022-09-08 00:50] LABS: ALANINE AMINOTRANSFERASE 22 U/L (12-78); ALBUMIN 1.9 G/DL (3.4-5.0); ALBUMIN/GLOBULIN RATIO 0.6 (1.1-1.5); ALKALINE PHOSPHATASE 46 IU/L (46-116); ANION GAP 18 (8-16); ASPARTATE AMINO TRANSFERASE 40 U/L (10-37); BILIRUBIN,TOTAL 0.4 MG/DL (0.1-1.0); BLOOD UREA NITROGEN 79 MG/DL (7-18); BUN/CREATININE RATIO 17.6 (10.0-20.0); CALCIUM 6.1 MG/DL (8.5-10.1); CHLORIDE 107 MMOL/L (99-107); CREATININE 4.48 MG/DL (0.60-1.10); GLUCOSE 101 MG/DL (70-104); POTASSIUM 3.8 MMOL/L (3.5-5.1); SODIUM 142 MMOL/L (135-145); TOTAL PROTEIN 5.2 G/DL (6.4-8.2); eGFR 13 ML/MIN
[2022-09-08] MEDS: pantoprazole 40MG/NS 100ML BAG 100 ML IV SCH ×5 (02:09→21:53)
--- NOTE | 2022-09-08 03:14 | NUR ---
Patient in room ORTHO 4011. I have received report from benjamin no and had the opportunity to ask questions and assume patient care.
[2022-09-08] MEDS: normal saline 1000ml 1,000 ML IV SCH ×3 (03:21→19:45)
--- NOTE | 2022-09-08 03:54 | NUR ---
BLOOD DONOR RECRUITER documentation: I have reviewed and agree with all interventions, assessments performed and documented by Andi Lewis LVN.
[2022-09-08] MEDS ORDERED: vancomycin inj 500 MG in normal saline 100ml IV soln 100 ML IV PRN ×2 (05:00→06:51)
--- NOTE | 2022-09-08 06:41 | NUR ---
300 ml this shift from NG, dialysis expected today per report
[2022-09-08] MEDS ORDERED: vancomycin/NS 1 GM ADD-VANTAGE 250 ML IV PRN (07:00)
[2022-09-08] MEDS ORDERED: normal saline 1000ml 100 ML IV PRN (07:10)
[2022-09-08] MEDS ORDERED: heparin 1,000 units/ml 10ml inj HE ONE (07:15)
[2022-09-08] MEDS: heparin, porcine 5000 units/ml vial SQ SCH ×2 (07:17→21:03)
[2022-09-08] MEDS: nicotine 21mg patch - 24 hr TD SCH (07:17)
[2022-09-08] MEDS: K and/or MAG REPLACEMENT MC SCH ×2 (08:00→19:57)
[2022-09-08 08:43] LABS: BASOPHILS % (AUTO) 0 % (0-1); EOSINOPHILS % (AUTO) 0 % (0-6); HEMATOCRIT 29.2 % (42.0-52.0); HEMOGLOBIN 9.5 g/dl (14.0-17.9); LYMPHOCYTES # (AUTO) 0.3 X10'3 (1.1-4.8); LYMPHOCYTES % (AUTO) 4.3 % (21-51); MEAN CORPUSCULAR HEMOGLOBIN 26.4 PG (27.0-31.0); MEAN CORPUSCULAR HGB CONC 32.6 g/dL (33.0-36.5); MEAN CORPUSCULAR VOLUME 80.9 FL (78-98); MEAN PLATELET VOLUME 7.2 FL (7.4-10.4); MONOCYTES # (AUTO) 0.7 X10'3 (0-0.9); MONOCYTES % (AUTO) 10.3 % (2-12); NEUTROPHILS # (AUTO) 6.2 X10'3 (1.8-7.7); NEUTROPHILS % (AUTO) 85.4 % (42-75); PLATELET COUNT 244 X10'3 (140-440); RED BLOOD COUNT 3.61 X10'6 (4.70-6.10); RED CELL DISTRIBUTION WIDTH 15.7 % (11.5-14.5); WHITE BLOOD COUNT 7.2 X10'3 (4.5-11.0)
[2022-09-08 09:52] LABS: ALANINE AMINOTRANSFERASE 35 U/L (12-78); ALBUMIN 2.1 G/DL (3.4-5.0); ALBUMIN/GLOBULIN RATIO 0.5 (1.1-1.5); ALKALINE PHOSPHATASE 45 IU/L (46-116); ANION GAP 20 (8-16); ASPARTATE AMINO TRANSFERASE 57 U/L (10-37); BILIRUBIN,TOTAL 0.5 MG/DL (0.1-1.0); BLOOD UREA NITROGEN 93 MG/DL (7-18); BUN/CREATININE RATIO 17.8 (10.0-20.0); CALCIUM 7.1 MG/DL (8.5-10.1); CHLORIDE 106 MMOL/L (99-107); CREATININE 5.22 MG/DL (0.60-1.10); GLUCOSE 104 MG/DL (70-104); MAGNESIUM 2.5 MG/DL (1.5-2.4); POTASSIUM 4.2 MMOL/L (3.5-5.1); SODIUM 143 MMOL/L (135-145); TOTAL CARBON DIOXIDE 16.9 MMOL/L (24-32); TOTAL PROTEIN 6.1 G/DL (6.4-8.2); VANCOMYCIN,RANDOM 13.5 UG/ML; eGFR 11 ML/MIN
[2022-09-08] MEDS ORDERED: vancomycin inj 500 MG in normal saline 100ml IV soln 100 ML IV ONE (12:00)
[2022-09-08 15:27] LABS: HBSAG SCREEN Negative (Negative)
--- NOTE | 2022-09-08 18:00 | NUR ---
Patient in room ORTHO 4011. I have received report from oneal Cabral and had the opportunity to ask questions and assume patient care.
--- NOTE | 2022-09-08 18:34 | NUR ---
talked to dr rodas about pt fluid order to confirm this is the order him and dr rojas want being a dialysis pt to not overload the pt. he stated that dr rojas thinks the pt is very dry and wanted the fluids at the ordered rate of 150 ml hr.
--- NOTE | 2022-09-08 18:43 | NUR ---
Problems reprioritized. Patient report given, questions answered & plan of care reviewed with valeriy no.
--- NOTE | 2022-09-08 19:00 | NUR ---
Patient in room ORTHO 4011. I have received report from Marianna WEINBERG and had the opportunity to ask questions and assume patient care.
[2022-09-08 20:01] LABS: ALANINE AMINOTRANSFERASE 49 U/L (12-78); ALBUMIN 2.2 G/DL (3.4-5.0); ALBUMIN/GLOBULIN RATIO 0.6 (1.1-1.5); ALKALINE PHOSPHATASE 52 IU/L (46-116); ANION GAP 16 (8-16); ASPARTATE AMINO TRANSFERASE 67 U/L (10-37); BILIRUBIN,TOTAL 0.5 MG/DL (0.1-1.0); BLOOD UREA NITROGEN 51 MG/DL (7-18); CALCIUM 7.6 MG/DL (8.5-10.1); CHLORIDE 103 MMOL/L (99-107); CREATININE 3.18 MG/DL (0.60-1.10); GLUCOSE 96 MG/DL (70-104); POTASSIUM 3.7 MMOL/L (3.5-5.1); SODIUM 142 MMOL/L (135-145); TOTAL CARBON DIOXIDE 23.5 MMOL/L (24-32); TOTAL PROTEIN 6.2 G/DL (6.4-8.2); eGFR 20 ML/MIN
[2022-09-09] MEDS: normal saline 1000ml 1,000 ML IV SCH ×4 (01:06→21:29)
[2022-09-09] MEDS: pantoprazole 40MG/NS 100ML BAG 100 ML IV SCH ×5 (02:03→21:22)
[2022-09-09] MEDS: VANCOMYCIN LEVEL IV SCH (02:38)
[2022-09-09] MEDS: morphine 2 MG/ML inj. syringe IV PRN ×4 (04:32→19:44)
[2022-09-09 06:00] VITALS: BP 123/86; PULSE 89; RESP 16; TEMP 97.8; O2SAT 95
--- NOTE | 2022-09-09 06:00 | NUR ---
Patient in room ORTHO 4011. I have received report from Yamel and had the opportunity to ask questions and assume patient care.
--- NOTE | 2022-09-09 06:19 | NUR ---
Problems reprioritized. Patient report given, questions answered & plan of care reviewed with Lily WEINBERG. Pt diet changed to clear liquids per Dr. Powell, abdominal dressing changed this shift, NG still in place per Dr. Cano at [facility]
[2022-09-09 06:45] LABS: BASOPHILS % (AUTO) 0 % (0-1); EOSINOPHILS % (AUTO) 0.2 % (0-6); HEMATOCRIT 25.2 % (42.0-52.0); HEMOGLOBIN 8.3 g/dl (14.0-17.9); LYMPHOCYTES # (AUTO) 0.8 X10'3 (1.1-4.8); LYMPHOCYTES % (AUTO) 10.1 % (21-51); MEAN CORPUSCULAR HEMOGLOBIN 26.3 PG (27.0-31.0); MEAN CORPUSCULAR HGB CONC 32.9 g/dL (33.0-36.5); MEAN CORPUSCULAR VOLUME 80.1 FL (78-98); MEAN PLATELET VOLUME 6.9 FL (7.4-10.4); MONOCYTES # (AUTO) 0.7 X10'3 (0-0.9); MONOCYTES % (AUTO) 8.5 % (2-12); NEUTROPHILS # (AUTO) 6.3 X10'3 (1.8-7.7); NEUTROPHILS % (AUTO) 81.2 % (42-75); PLATELET COUNT 203 X10'3 (140-440); RED BLOOD COUNT 3.14 X10'6 (4.70-6.10); RED CELL DISTRIBUTION WIDTH 15.9 % (11.5-14.5); WHITE BLOOD COUNT 7.7 X10'3 (4.5-11.0)
[2022-09-09 07:13] LABS: ALANINE AMINOTRANSFERASE 52 U/L (12-78); ALBUMIN 1.9 G/DL (3.4-5.0); ALBUMIN/GLOBULIN RATIO 0.5 (1.1-1.5); ALKALINE PHOSPHATASE 50 IU/L (46-116); ANION GAP 13 (8-16); ASPARTATE AMINO TRANSFERASE 61 U/L (10-37); BILIRUBIN,TOTAL 0.4 MG/DL (0.1-1.0); BLOOD UREA NITROGEN 62 MG/DL (7-18); BUN/CREATININE RATIO 17.6 (10.0-20.0); CALCIUM 7.3 MG/DL (8.5-10.1); CHLORIDE 106 MMOL/L (99-107); CREATININE 3.52 MG/DL (0.60-1.10); GLUCOSE 89 MG/DL (70-104); MAGNESIUM 2.3 MG/DL (1.5-2.4); POTASSIUM 3.7 MMOL/L (3.5-5.1); SODIUM 142 MMOL/L (135-145); TOTAL CARBON DIOXIDE 22.8 MMOL/L (24-32); TOTAL PROTEIN 5.5 G/DL (6.4-8.2); VANCOMYCIN,RANDOM 21.4 UG/ML; eGFR 17 ML/MIN
[2022-09-09] MEDS: K and/or MAG REPLACEMENT MC SCH ×2 (08:00→20:00)
[2022-09-09 08:28] VITALS: RESP 16; O2SAT 95
[2022-09-09] MEDS: nicotine 21mg patch - 24 hr TD SCH (08:28)
[2022-09-09] MEDS: heparin, porcine 5000 units/ml vial SQ SCH ×2 (08:28→19:43)
[2022-09-09 10:00] VITALS: BP 134/86; PULSE 91; RESP 16; TEMP 98.7; O2SAT 93
[2022-09-09 13:18] LABS: TOTAL PROTEIN,URINE RANDOM 102.4 MG/DL
[2022-09-09 18:00] VITALS: BP 131/89; PULSE 96; RESP 16; TEMP 97.6; O2SAT 96
--- NOTE | 2022-09-09 18:15 | NUR ---
Patient in room ORTHO 4011. I have received report from LENARD SUAREZ and had the opportunity to ask questions and assume patient care.
--- NOTE | 2022-09-09 18:20 | NUR ---
Problems reprioritized. Patient report given, questions answered & plan of care reviewed with Yamel.
[2022-09-09 20:00] VITALS: RESP 16; O2SAT 97
[2022-09-09 22:00] VITALS: BP 131/90; PULSE 60; RESP 16; TEMP 97.8; O2SAT 97
[2022-09-10] VITALS (7 sets, daily range): BP systolic 118–135; BP diastolic 80–97; PULSE 61–112; RESP 16–22; TEMP 96.8–97.8; O2SAT 73–99
[2022-09-10] MEDS: morphine 2 MG/ML inj. syringe IV PRN ×5 (00:30→21:49)
[2022-09-10] MEDS: pantoprazole 40MG/NS 100ML BAG 100 ML IV SCH (02:45)
[2022-09-10] MEDS: VANCOMYCIN LEVEL IV SCH (03:00)
[2022-09-10] MEDS: normal saline 1000ml 1,000 ML IV SCH ×2 (04:32→19:17)
--- NOTE | 2022-09-10 06:24 | NUR ---
Problems reprioritized. Patient report given, questions answered & plan of care reviewed with LENARD DOW.
--- NOTE | 2022-09-10 07:41 | NUR ---
Patient in room ORTHO 4011A. I have received report from LENARD WREN and had the opportunity to ask questions and assume patient care.
[2022-09-10 08:58] LABS: BASOPHILS % (AUTO) 0.1 % (0-1); EOSINOPHILS # (AUTO) 0.1 X10'3 (0-0.9); EOSINOPHILS % (AUTO) 0.9 % (0-6); HEMATOCRIT 28.3 % (42.0-52.0); HEMOGLOBIN 9.1 g/dl (14.0-17.9); LYMPHOCYTES # (AUTO) 0.6 X10'3 (1.1-4.8); LYMPHOCYTES % (AUTO) 8.4 % (21-51); MEAN CORPUSCULAR HEMOGLOBIN 26.1 PG (27.0-31.0); MEAN CORPUSCULAR HGB CONC 32.2 g/dL (33.0-36.5); MEAN PLATELET VOLUME 7.2 FL (7.4-10.4); MONOCYTES # (AUTO) 0.7 X10'3 (0-0.9); MONOCYTES % (AUTO) 9.4 % (2-12); NEUTROPHILS % (AUTO) 81.2 % (42-75); PLATELET COUNT 221 X10'3 (140-440); RED BLOOD COUNT 3.49 X10'6 (4.70-6.10); RED CELL DISTRIBUTION WIDTH 15.8 % (11.5-14.5); WHITE BLOOD COUNT 7.3 X10'3 (4.5-11.0)
[2022-09-10 09:06] LABS: ALANINE AMINOTRANSFERASE 49 U/L (12-78); ALBUMIN 1.8 G/DL (3.4-5.0); ALBUMIN/GLOBULIN RATIO 0.5 (1.1-1.5); ALKALINE PHOSPHATASE 52 IU/L (46-116); ANION GAP 14 (8-16); ASPARTATE AMINO TRANSFERASE 46 U/L (10-37); BILIRUBIN,TOTAL 0.4 MG/DL (0.1-1.0); BLOOD UREA NITROGEN 63 MG/DL (7-18); BUN/CREATININE RATIO 19.8 (10.0-20.0); CALCIUM 7.4 MG/DL (8.5-10.1); CHLORIDE 105 MMOL/L (99-107); CREATININE 3.18 MG/DL (0.60-1.10); GLUCOSE 93 MG/DL (70-104); MAGNESIUM 2.1 MG/DL (1.5-2.4); POTASSIUM 3.8 MMOL/L (3.5-5.1); SODIUM 141 MMOL/L (135-145); TOTAL PROTEIN 5.3 G/DL (6.4-8.2); VANCOMYCIN,RANDOM 9.8 UG/ML; eGFR 20 ML/MIN
[2022-09-10] MEDS: K and/or MAG REPLACEMENT MC SCH ×2 (12:48→20:00)
[2022-09-10] MEDS: pantoprazole 40mg Tablet.DR PO SCH ×2 (13:40→20:27)
[2022-09-10] MEDS: heparin, porcine 5000 units/ml vial SQ SCH ×2 (13:41→20:28)
[2022-09-10] MEDS: nicotine 21mg patch - 24 hr TD SCH (13:41)
--- NOTE | 2022-09-10 14:54 | NUR ---
Initial: Pt admit DX SBO post-op day 4 s/p ileal resection and ileocolic anastomosis, LEONELA started on HD though may no longer need, and meth abuse per MD notes. Pt advanced to clear liquids 09/08 WS PO ~70% initial meals not meeting estimated needs given nature of diet and NPO status. RD recommends Ensure Clear TIDWM to assist meeting needs; MD notified. No BM yet this admit receiving morphine daily; RD d/w RN regarding stool softener if physician agreeable. Will monitor for diet advancement and further nutrition intervention needs. Rec: 1. advance diet as medically indicated to low-residue; encourage PO 2. Ensure Clear TIDWM; pending physician verification in EMR 3. IF to remain on clear liquids vs NPO without GI function return consider TPN for nutrition needs 4. routine bowel care 5. scaled wt this admit; subsequent daily wt Addendum: 09/10/22 at [address] Amended: Links added.
[2022-09-10] MEDS: NUT.TX.IMPAIRED DIGEST FXN (Ensure Clear) 237 ML PO SCH (18:00)
--- NOTE | 2022-09-10 18:30 | NUR ---
Patient in room ORTHO 4011. I have received report from VICTOR M and had the opportunity to ask questions and assume patient care.
--- NOTE | 2022-09-10 18:43 | NUR ---
Problems reprioritized. Patient report given, questions answered & plan of care reviewed with LENARD SANCHEZ.
--- NOTE | 2022-09-10 19:30 | NUR ---
ASSISTED PT TO THE BATHROOM TO SIT ON TOILET TO ATTEMPT TO EITHER PASS GAS OR HAVE A BM. PT STRAINING HARD TO HAVE A BM, PT ENCOURAGED NOT TO STRAIN, PT CONTINUES TO STRAIN FOR A BM ANYWAY. PT STATES THAT HE DID PASS A SMALL AMOUNT OF GAS, NO BM. IT IS NOTED THAT PT'S LEGS ARE MOTTLED AND PT BECOMING SOB. PT ASSISTED BACK INTO BED, OXYGEN SATURATION 73%. PT PLACED ON 2L NC. OXYGEN SATURATIONS 91% ON 2L, MOTTLED LEGS IMPROVING. WILL CONTINUE TO MONITOR.
[2022-09-11] MEDS: normal saline 1000ml 1,000 ML IV SCH (01:07)
[2022-09-11] MEDS: ondansetron/PF 4mg/2ml inj IV PRN (01:07)
[2022-09-11] MEDS: morphine 2 MG/ML inj. syringe IV PRN ×4 (01:48→19:05)
[2022-09-11 06:00] VITALS: BP 138/84; PULSE 77; RESP 18; TEMP 96.8; O2SAT 97
--- NOTE | 2022-09-11 07:01 | NUR ---
Patient in room ORTHO 4011A. I have received report from LENARD SANCHEZ and had the opportunity to ask questions and assume patient care.
[2022-09-11] MEDS: K and/or MAG REPLACEMENT MC SCH ×2 (08:00→20:00)
[2022-09-11] MEDS: NUT.TX.IMPAIRED DIGEST FXN (Ensure Clear) 237 ML PO SCH ×3 (08:00→18:00)
[2022-09-11] MEDS: nicotine 21mg patch - 24 hr TD SCH (08:23)
[2022-09-11] MEDS: pantoprazole 40mg Tablet.DR PO SCH ×2 (08:25→19:05)
[2022-09-11] MEDS: heparin, porcine 5000 units/ml vial SQ SCH ×2 (08:26→19:05)
[2022-09-11] MEDS ORDERED: metoclopramide 5 mg/ml inj IV PRN (09:00)
[2022-09-11] MEDS ORDERED: HYDROcodone/acetaminophen 5mg/325mg tablet PO PRN (09:00)
[2022-09-11 09:59] LABS: HEMATOCRIT 30.1 % (42.0-52.0); HEMOGLOBIN 9.7 g/dl (14.0-17.9); MEAN CORPUSCULAR HEMOGLOBIN 26.2 PG (27.0-31.0); MEAN CORPUSCULAR HGB CONC 32.3 g/dL (33.0-36.5); MEAN CORPUSCULAR VOLUME 81.2 FL (78-98); MEAN PLATELET VOLUME 6.9 FL (7.4-10.4); PLATELET COUNT 266 X10'3 (140-440); RED BLOOD COUNT 3.71 X10'6 (4.70-6.10); RED CELL DISTRIBUTION WIDTH 15.9 % (11.5-14.5); WHITE BLOOD COUNT 6.5 X10'3 (4.5-11.0)
[2022-09-11 10:00] VITALS: BP 140/94; PULSE 65; RESP 14; TEMP 97.5; O2SAT 99
[2022-09-11 10:12] LABS: ALANINE AMINOTRANSFERASE 50 U/L (12-78); ALBUMIN/GLOBULIN RATIO 0.5 (1.1-1.5); ALKALINE PHOSPHATASE 53 IU/L (46-116); ANION GAP 14 (8-16); ASPARTATE AMINO TRANSFERASE 38 U/L (10-37); BILIRUBIN,TOTAL 0.4 MG/DL (0.1-1.0); BLOOD UREA NITROGEN 63 MG/DL (7-18); BUN/CREATININE RATIO 23.3 (10.0-20.0); CHLORIDE 106 MMOL/L (99-107); GLUCOSE 105 MG/DL (70-104); POTASSIUM 3.8 MMOL/L (3.5-5.1); SODIUM 138 MMOL/L (135-145); TOTAL CARBON DIOXIDE 17.8 MMOL/L (24-32); TOTAL PROTEIN 5.9 G/DL (6.4-8.2); eGFR 24 ML/MIN
[2022-09-11 18:00] VITALS: BP 141/97; PULSE 111; RESP 21; TEMP 98.2; O2SAT 96
--- NOTE | 2022-09-11 18:45 | NUR ---
Problems reprioritized. Patient report given, questions answered & plan of care reviewed with LENARD OBREGON.
[2022-09-11 20:48] VITALS: RESP 21; O2SAT 96
--- NOTE | 2022-09-11 21:48 | NUR ---
rebekah catheter removed. pt tolerated well. no sob. catheter tip intact. no redness no more bleeding seen after givign pressure for 10min.
[2022-09-11 22:00] VITALS: BP 139/94; PULSE 101; RESP 16; TEMP 98.1; O2SAT 95
[2022-09-12] VITALS (7 sets, daily range): BP systolic 120–156; BP diastolic 72–99; PULSE 83–113; RESP 16–20; TEMP 97.4–99.5; O2SAT 93–98
[2022-09-12] MEDS: HYDROcodone/acetaminophen 5mg/325mg tablet PO PRN ×3 (00:15→23:25)
--- NOTE | 2022-09-12 06:21 | NUR ---
Problems reprioritized. Patient report given, questions answered & plan of care reviewed with LENARD DOW.
[2022-09-12 06:41] LABS: ALANINE AMINOTRANSFERASE 46 U/L (12-78); ALBUMIN 1.9 G/DL (3.4-5.0); ALBUMIN/GLOBULIN RATIO 0.5 (1.1-1.5); ALKALINE PHOSPHATASE 59 IU/L (46-116); ANION GAP 14 (8-16); ASPARTATE AMINO TRANSFERASE 31 U/L (10-37); BILIRUBIN,TOTAL 0.4 MG/DL (0.1-1.0); BLOOD UREA NITROGEN 56 MG/DL (7-18); BUN/CREATININE RATIO 24.2 (10.0-20.0); CALCIUM 7.7 MG/DL (8.5-10.1); CHLORIDE 106 MMOL/L (99-107); CREATININE 2.31 MG/DL (0.60-1.10); GLUCOSE 115 MG/DL (70-104); POTASSIUM 3.5 MMOL/L (3.5-5.1); SODIUM 141 MMOL/L (135-145); TOTAL CARBON DIOXIDE 21.1 MMOL/L (24-32); TOTAL PROTEIN 5.5 G/DL (6.4-8.2); eGFR 28 ML/MIN
[2022-09-12] MEDS: K and/or MAG REPLACEMENT MC SCH ×2 (08:00→20:00)
[2022-09-12] MEDS: NUT.TX.IMPAIRED DIGEST FXN (Ensure Clear) 237 ML PO SCH ×3 (08:00→18:00)
[2022-09-12] MEDS: heparin, porcine 5000 units/ml vial SQ SCH ×2 (08:25→20:06)
[2022-09-12] MEDS: pantoprazole 40mg Tablet.DR PO SCH ×2 (08:25→20:04)
[2022-09-12] MEDS: nicotine 21mg patch - 24 hr TD SCH (08:25)
[2022-09-12] MEDS: metoclopramide 5 mg/ml inj IV SCH ×3 (08:26→20:05)
[2022-09-12] MEDS: normal saline 1000ml 1,000 ML IV SCH (11:59)
--- NOTE | 2022-09-12 18:30 | NUR ---
RECEIVED REPORT FROM LENARD DOW. PER REPORT, THERE'S START NG ORDER WHICH PLACED BY DR. ALANA RN CONFIRMED WITH DR SCOTT AND DR SCOTT DOESN'T WANT NG UNLESS ABSOLUTELY NEEDED.
--- NOTE | 2022-09-12 19:39 | NUR ---
Problems reprioritized. Patient report given, questions answered & plan of care reviewed with LENARD OBREGON.
--- NOTE | 2022-09-12 22:43 | NUR ---
PT GOT UP TO USE COMMODE AND HE HAD LARGE LIQUID BM. PT BECAME EXTREMELY SOB SATS LOW 70'S ON 2L. BP156// RR 25. TURNED 02 TO 5L. IT TOOK ABOUT 20 MIN FOR SATS TO GET OVER 90'S. NOW SATS93% 2L.
[2022-09-13] MEDS: morphine 2 MG/ML inj. syringe IV PRN ×2 (00:50→05:23)
[2022-09-13] MEDS: normal saline 1000ml 1,000 ML IV SCH (00:55)
[2022-09-13] MEDS: metoclopramide 5 mg/ml inj IV SCH ×4 (02:01→21:24)
[2022-09-13 06:00] VITALS: BP 106/59; PULSE 120; RESP 22; TEMP 98.6; O2SAT 99
--- NOTE | 2022-09-13 06:30 | NUR ---
Patient in room ORTHO 4011. I have received report from Maine WEINBERG and had the opportunity to ask questions and assume patient care.
--- NOTE | 2022-09-13 06:38 | NUR ---
Problems reprioritized. Patient report given, questions answered & plan of care reviewed with AARON ROSE.
[2022-09-13 07:00] VITALS: RESP 22; O2SAT 99
[2022-09-13 07:02] LABS: ALANINE AMINOTRANSFERASE 49 U/L (12-78); ALBUMIN 1.9 G/DL (3.4-5.0); ALBUMIN/GLOBULIN RATIO 0.5 (1.1-1.5); ALKALINE PHOSPHATASE 72 IU/L (46-116); ANION GAP 14 (8-16); ASPARTATE AMINO TRANSFERASE 40 U/L (10-37); BILIRUBIN,TOTAL 0.5 MG/DL (0.1-1.0); BLOOD UREA NITROGEN 44 MG/DL (7-18); BUN/CREATININE RATIO 22.8 (10.0-20.0); CALCIUM 7.8 MG/DL (8.5-10.1); CHLORIDE 108 MMOL/L (99-107); CREATININE 1.93 MG/DL (0.60-1.10); GLUCOSE 104 MG/DL (70-104); POTASSIUM 3.6 MMOL/L (3.5-5.1); SODIUM 140 MMOL/L (135-145); TOTAL CARBON DIOXIDE 17.6 MMOL/L (24-32); TOTAL PROTEIN 5.7 G/DL (6.4-8.2); eGFR 35 ML/MIN
[2022-09-13] MEDS: K and/or MAG REPLACEMENT MC SCH ×2 (07:32→19:32)
[2022-09-13] MEDS: heparin, porcine 5000 units/ml vial SQ SCH ×2 (07:42→20:49)
[2022-09-13] MEDS: nicotine 21mg patch - 24 hr TD SCH (07:42)
[2022-09-13] MEDS: pantoprazole 40mg Tablet.DR PO SCH ×2 (07:42→20:49)
[2022-09-13 10:00] VITALS: BP 111/74; PULSE 114; RESP 24; TEMP 98.8; O2SAT 97
[2022-09-13] MEDS ORDERED: DOCU-148 PO (10:09)
[2022-09-13] MEDS ORDERED: HYDR-3965 PO (10:09)
--- NOTE | 2022-09-13 11:00 | NUR ---
Pt stated "Don't give me that stuff.", when educating that Dr Casper is aware of earlier loose BM, but recommends one more dose.
[2022-09-13] MEDS: HYDROcodone/acetaminophen 5mg/325mg tablet PO PRN ×3 (11:07→19:26)
--- NOTE | 2022-09-13 12:04 | NUR ---
PAGER ID: [phone] MESSAGE: [id number] Rodriguez. L- When patient is up ambulating w/o oxygen, o2 dropped to 70 HR 25, while walking back to room o2 78 HR 39. Once in bed with 2L oxygen on o2 91 HR 90-115. Patient refuses the reglan. pls advise? ENRICO Ta [id number]
[2022-09-13] MEDS ORDERED: furosemide 20 MG/2 ML vial IV ONE (13:30)
--- NOTE | 2022-09-13 15:56 | NUR ---
F/u 09/13: Pt's postop ileus resolving per physician note. Pt is advanced to a regular diet today; pending documentation of solid food intake per EMR. Recommend switching to low fiber diet given recent GI surgery. Pt prior NPO vs clear liquids for 8 days altogether not meeting estimated needs. Ensure clearTID on order since 09/10 however not given most of the time due to NPO status/pt refusing per EMR. Pt seen at bedside and agreeable to drinking chocolate Ensure Enlive. Recommend switching to Ensure Enlive TIDWM to help better meet estimated needs; discussed with RN. Pt appeared visually cachetic, visible muscle wasting to the orbital region, fat wasting to the uatsdin region and clavicle region. Given inadquate intake since admit 9 days LOS, visible fat and muscle wasting, and documented mild weakness in EMR; pt meets a minimum of two criteria for malnutrition; MD notified. LBM on 09/13 noted diarrhea and receiving IV Reglan for two days per EMR. Will continue to follow. Recommendations: 1.Switching from a regular diet to low-residue diet given recent GI surgery 2.Discontinue ensure clear since pt has been advanced to a regular diet 3.Ensure Enlive TIDWM to better meet estimated needs, given malnourished status 4.Routine bowel care 5.Scaled wt this admit; subsequent daily wt Addendum: 09/13/22 at [address] Amended: Links added.
--- NOTE | 2022-09-13 16:52 | NUR ---
PAGER ID: [phone] MESSAGE: [id number]- Gauri Rodriguez- Patient was just vaping in his bed. Pls call me [phone]
--- NOTE | 2022-09-13 16:52 | NUR ---
Went to check in on patient and caught him vaping. I took vape and place in patient chart. I advised Dr. Casper of this.
--- NOTE | 2022-09-13 17:13 | NUR ---
PAGER ID: [phone] MESSAGE: [id number]- Michael, L- Output since 1345 has been 350mL and 1 void in the toilet. Pls advise? ENRICO Ta [id number]
--- NOTE | 2022-09-13 17:49 | NUR ---
PAGER ID: [phone] MESSAGE: [id number]- Patient o2 with out oxygen is 97%. HR 105. Patient is tolerating regular diet and is wanting to go home. PLS advise? Cely [id number] TY
--- NOTE | 2022-09-13 17:51 | NUR ---
Dr. Casper called back and said patient is staying the night for observation. I advised patient and he isn't happy but understandable.
[2022-09-13 18:00] VITALS: BP 120/81; PULSE 116; RESP 18; TEMP 98.8; O2SAT 95
[2022-09-13] MEDS: lactose-reduced food (Ensure Enlive) - 237ml bottle PO SCH (18:00)
[2022-09-13] MEDS ORDERED: lactose-reduced food (Ensure Enlive) - 237ml bottle PO SCH (18:00)
--- NOTE | 2022-09-13 18:00 | NUR ---
I have reviewed and agree with interventions, assessments, and documentation by Cely Astorga LVN.
--- NOTE | 2022-09-13 18:49 | NUR ---
Problems reprioritized. Patient report given, questions answered & plan of care reviewed with Andi WALKER/ Eda WEINBERG.
[2022-09-13 19:00] VITALS: RESP 18; O2SAT 95
--- NOTE | 2022-09-13 19:03 | NUR ---
Patient in room ORTHO 4011. I have received report from ROSE WALKER and had the opportunity to ask questions and assume patient care.
[2022-09-13] MEDS: furosemide 20 MG/2 ML vial IV SCH (21:23)
[2022-09-13 22:00] VITALS: BP 126/93; PULSE 91; RESP 18; TEMP 97.6; O2SAT 94
[2022-09-14] MEDS: metoclopramide 5 mg/ml inj IV SCH ×2 (02:38→07:23)
[2022-09-14] MEDS: morphine 2 MG/ML inj. syringe IV PRN (02:40)
[2022-09-14] MEDS: HYDROcodone/acetaminophen 5mg/325mg tablet PO PRN (04:57)
[2022-09-14 06:00] VITALS: BP 130/90; PULSE 111; RESP 18; TEMP 97.8; O2SAT 96
--- NOTE | 2022-09-14 06:34 | NUR ---
Problems reprioritized. Patient report given, questions answered & plan of care reviewed with JOSE WEINBERG.
[2022-09-14 07:00] VITALS: RESP 18; O2SAT 96
[2022-09-14] MEDS: pantoprazole 40mg Tablet.DR PO SCH (07:22)
[2022-09-14] MEDS: furosemide 20 MG/2 ML vial IV SCH (07:23)
[2022-09-14] MEDS: heparin, porcine 5000 units/ml vial SQ SCH (07:25)
[2022-09-14] MEDS: nicotine 21mg patch - 24 hr TD SCH (07:32)
[2022-09-14] MEDS: K and/or MAG REPLACEMENT MC SCH (07:32)
[2022-09-14 08:00] VITALS: BP_SYST 125; BP_SYST 130; BP_DIAS 78; BP_DIAS 90
[2022-09-14] MEDS ORDERED: furosemide 20 MG/2 ML vial IV SCH (08:00)
[2022-09-14] MEDS: lactose-reduced food (Ensure Enlive) - 237ml bottle PO SCH ×2 (08:00→13:38)
--- NOTE | 2022-09-14 10:27 | NUR ---
O2 Sat at rest on room air:__97_% If below 89%: Recovery O2 Sat at rest on __2_LPM:_99__%:___% via nc (mask/nasal cannula, etc..) No further documentation is necessary. If O2 Sat did not drop below 89% on room air,ambulate patient on room air. O2 Sat while ambulating on room air:__86_% Recovery O2 Sat while ambulating on __2_LPM:_92__% No further documentation is necessary. If patient does not drop below 89% while ambulating, he/she does not qualify for home O2.
[2022-09-14] MEDS ORDERED: ONDA4TAB12 PO (11:20)
[2022-09-14] MEDS ORDERED: NICO-687 TD (11:20)
--- NOTE | 2022-09-14 15:01 | NUR ---
Pt discharged home with girlfriend. Pt left in stable condition with all belongings. Discharge paperwork gone over with pt. Pt verbalized understanding and stated he had no questions.
== END 2022-09-14 14:50 | disposition home or self-care (01) | DRG 230 ==
LOC: ER 13:14 → ED HOLD 17:40 → ORTHO 4S 23:04
PROVIDERS: ADMIT Family Medicine; ATTEND Family Medicine
PROC: 0D9670Z Drainage of Stomach with Drainage Device, Via Natural or Artificial Opening (ICD-10-PCS; 2022-09-05)
PROC: 5A1D70Z Performance of Urinary Filtration, Intermittent, Less than 6 Hours Per Day (ICD-10-PCS; 2022-09-07)
PROC: 06HY33Z Insertion of Infusion Device into Lower Vein, Percutaneous Approach (ICD-10-PCS; 2022-09-07)
PROC: 0DBB0ZZ Excision of Ileum, Open Approach (ICD-10-PCS; principal; 2022-09-07 14:25)
PROC: 5A1D70Z Performance of Urinary Filtration, Intermittent, Less than 6 Hours Per Day (ICD-10-PCS; 2022-09-08)
DX: K56.609 Unspecified intestinal obstruction, unspecified as to partial versus complete obstruction (principal); K55.069 Acute infarction of intestine, part and extent unspecified; J96.01 Acute respiratory failure with hypoxia; N17.0 Acute kidney failure with tubular necrosis; D62 Acute posthemorrhagic anemia; E87.20 Acidosis, unspecified; K56.7 Ileus, unspecified; E86.0 Dehydration; R00.0 Tachycardia, unspecified; F15.10 Other stimulant abuse, uncomplicated; D72.829 Elevated white blood cell count, unspecified; B19.20 Unspecified viral hepatitis C without hepatic coma; F17.210 Nicotine dependence, cigarettes, uncomplicated; K21.9 Gastro-esophageal reflux disease without esophagitis; J44.9 Chronic obstructive pulmonary disease, unspecified; K46.9 Unspecified abdominal hernia without obstruction or gangrene; K91.89 Other postprocedural complications and disorders of digestive system; Z87.11 Personal history of peptic ulcer disease; Z56.0 Unemployment, unspecified; Z79.899 Other long term (current) drug therapy; Z71.51 Drug abuse counseling and surveillance of drug abuser; Z71.6 Tobacco abuse counseling; Z99.81 Dependence on supplemental oxygen
CPT/HCPCS: 36415; 71045; 74176; 76770; 80048; 80053; 80202; 81001; 81002; 82570; 82948; 83605; 83690; 83735; 83880; 84100; 84145; 84156; 84300; 84540; 84550; 85007; 85025; 85027; 86885; 86900; 86901; 87040; 87077; 87081; 87088; 87340; 93005; 93306; 97116; 97161; 97530; 97535; 99285; A4314; A4615; A4618; A6258; A6449; A7000; C9113; G0378; J0131; J0694; J1100; J1170; J1644; J1940; J2150; J2250; J2270; J2274; J2405; J2543; J2704; J2710; J2765; J3010; J3370; J3490; J7030; J7070; J7120; Q9963

== ENCOUNTER 2022-09-20 08:10 | Inpatient (IN) | payer MEDICAID ==
[2022-09-20] VITALS (27 sets, daily range): BP systolic 94–130; BP diastolic 59–77; PULSE 67–126; RESP 12–40; TEMP 98.5–98.7; O2SAT 94–99
[~2022-09-20] VITALS: Ht 182.9 cm; Wt 75.1 kg
[~2022-09-20 08:10] MED LIST changes: -BISM-155 PO; +DOCU-148 PO; -DOXY-224 PO; +HYDR-3965 PO; -METR-159 PO; +ONDA4TAB12 PO; -PANT-47 PO; +PANT40TA54 PO
[2022-09-20] MEDS ORDERED: ipratropium 0.5 MG/2.5ML nebule IH ONE (08:25)
[2022-09-20] MEDS ORDERED: albuterol 2.5 MG/3 ML nebule CONTNEB STA (08:34)
[2022-09-20] MEDS ORDERED: diltiazem 5mg/ml 5ml inj. IV ONE ×2 (08:40→09:30)
[2022-09-20] MEDS ORDERED: acetaminophen 325mg tablet PO STA (08:42)
[2022-09-20] MEDS ORDERED: piperacillin/tazo 3.375gm/50ml 50 ML IV ONE (08:45)
[2022-09-20] MEDS ORDERED: vancomycin/NS 1 GM ADD-VANTAGE 250 ML IV ONE (08:45)
[2022-09-20 08:46] LABS: BASOPHILS % (AUTO) 0.1 % (0-1); EOSINOPHILS % (AUTO) 0 % (0-6); HEMATOCRIT 34.4 % (42.0-52.0); HEMOGLOBIN 10.5 g/dl (14.0-17.9); LYMPHOCYTES # (AUTO) 0.5 X10'3 (1.1-4.8); LYMPHOCYTES % (AUTO) 4.2 % (21-51); MEAN CORPUSCULAR HEMOGLOBIN 24.9 PG (27.0-31.0); MEAN CORPUSCULAR HGB CONC 30.5 g/dL (33.0-36.5); MEAN CORPUSCULAR VOLUME 81.5 FL (78-98); MEAN PLATELET VOLUME 6.5 FL (7.4-10.4); MONOCYTES # (AUTO) 0.7 X10'3 (0-0.9); NEUTROPHILS # (AUTO) 11.9 X10'3 (1.8-7.7); NEUTROPHILS % (AUTO) 90.7 % (42-75); PLATELET COUNT 341 X10'3 (140-440); RED BLOOD COUNT 4.22 X10'6 (4.70-6.10); RED CELL DISTRIBUTION WIDTH 16.6 % (11.5-14.5); WHITE BLOOD COUNT 13.1 X10'3 (4.5-11.0)
[2022-09-20] MEDS ORDERED: fentaNYL 50MCG/ML 2ML intranasal KIT (WASTE REMAINDER W/WITNESS) NAS STA (08:47)
[2022-09-20] MEDS ORDERED: pantoprazole 40mg IV 80 MG in normal saline 100ml IV soln 100 ML IV ONE (08:50)
[2022-09-20] MEDS ORDERED: methylPREDNISolone sod succ 125mg/2ml vial IV ONE (08:50)
[2022-09-20] MEDS ORDERED: ondansetron/PF 4mg/2ml inj IV ONE (08:50)
[2022-09-20] MEDS ORDERED: fentaNYL/PF 50MCG/1 ML 2ML syringe IV ONE (08:55)
[2022-09-20 09:02] LABS: ABG BASE EXCESS -7.7 mmol/L (-2.0-2.0); ABG HCO3 14.3 mmol/L (22.0-26.0); ABG OXYGEN SATURATION 99.1 % (94-97); ABG PCO2 (T) 20.3 mmHg (35.0-48.0); ABG PH (T) 7.467 (7.340-7.440); ALLEN'S TEST POSITIVE; FCOHb 0.3 % (0.0-3.9); FHHb 0.9 % (0.0-5.0); FLOW 15 L/min; FMetHb 0.3 % (0.0-1.5); FO2Hb 98.5 % (94-97); MODE MASK - NRB; PATIENT TEMPERATURE 36.9; TOTAL HEMOGLOBIN 10.2 G/dl (14.0-17.9)
[2022-09-20] MEDS: normal saline 1000ml 1,000 ML IV SCH ×2 (09:08→19:46)
[2022-09-20 09:10] LABS: BILIRUBIN,URINE NEGATIVE (Neg); CLARITY,URINE CLOUDY (Clear); COLOR,URINE YELLOW (Yellow); GLUCOSE, URINE NEGATIVE (Neg); KETONES,URINE NEGATIVE (Neg); LEUKOCYTE ESTERASE ,URINE NEGATIVE (Neg); NITRITES, URINE NEGATIVE (Neg); OCCULT BLOOD,URINE MODERATE (Neg); PROTEIN,URINE 30 mg/dl (Neg); UROBILINOGEN,URINE 0.2 E.U/dL (0.2-1.0)
[2022-09-20 09:10] LABS: ALANINE AMINOTRANSFERASE 28 U/L (12-78); ALBUMIN/GLOBULIN RATIO 0.5 (1.1-1.5); ALKALINE PHOSPHATASE 84 IU/L (46-116); ANION GAP 20 (8-16); ASPARTATE AMINO TRANSFERASE 25 U/L (10-37); BILIRUBIN,TOTAL 0.3 MG/DL (0.1-1.0); BLOOD UREA NITROGEN 22 MG/DL (7-18); BUN/CREATININE RATIO 9.6 (10.0-20.0); C-REACTIVE PROTEIN 5.52 MG/DL (0.0-0.5); CALCIUM 7.6 MG/DL (8.5-10.1); CHLORIDE 106 MMOL/L (99-107); GLUCOSE 120 MG/DL (70-104); LIPASE 120 U/L (73-393); MAGNESIUM 1.2 MG/DL (1.5-2.4); PHOSPHORUS 3.3 MG/DL (2.3-4.5); PRO BRAIN NATRIURETIC PEPTIDE 957 PG/ML (0-125); SODIUM 141 MMOL/L (135-145); TOTAL CARBON DIOXIDE 15.2 MMOL/L (24-32); TOTAL PROTEIN 6.1 G/DL (6.4-8.2); eCRCL 26 ML/MIN; eGFR 29 ML/MIN
[2022-09-20 09:11] LABS: APTT 31 SECONDS (22-32); INR 1.1 INR; PROTHROMBIN TIME 11.9 SECONDS (9.0-12.0)
[2022-09-20 09:28] LABS: POTASSIUM 2.6 MMOL/L (3.5-5.1)
[2022-09-20 09:36] LABS: UA COLLECTION TYPE STRAIGHT CATH
[2022-09-20 09:37] LABS: SQUAMOUS EPITHELIAL CELL,UR FEW /LPF (FEW)
[2022-09-20 09:38] LABS: BACTERIA,URINE 2+ /HPF (Neg); RBC,URINE 50-100 /HPF (0-2); TRANSITIONAL EPI CELLS,URINE FEW /HPF
[2022-09-20 09:39] LABS: MUCUS STRANDS FEW /LPF (Neg)
[2022-09-20 09:40] LABS: URINE AMPHETAMINE SCREEN NEGATIVE (Neg); URINE BARBITUATE SCREEN NEGATIVE (Neg); URINE BENZODIAZEPINES SCREEN NEGATIVE (Neg); URINE CANNABINOID SCREEN NEGATIVE (Neg); URINE COCAINE SCREEN NEGATIVE (Neg); URINE METHADONE SCREEN NEGATIVE (Neg); URINE OPIATE SCREEN POSITIVE (Neg); URINE PHENCYCLIDINE SCREEN NEGATIVE (Neg)
[2022-09-20] MEDS ORDERED: D5-1/2NS w/20 mEq potassium per 1000ml IV ONE (10:00)
[2022-09-20] MEDS ORDERED: normal saline 1000ML IV soln IV ONE (10:05)
[2022-09-20] MEDS ORDERED: albumin (human) 25% 100 ML IV solution IV ONE (10:10)
[2022-09-20] MEDS ORDERED: potassium Cl 40MEQ/1/2NS 520ml 520 ML IV PRN ×2 (10:55→11:55)
[2022-09-20] MEDS: diatrozoate meglu/diatrozoate sod (37% iodine) 120ML oral solution PO SCH ×4 (11:28→17:00)
[2022-09-20] MEDS ORDERED: morphine 2 MG/ML inj. syringe IV ONE (11:35)
--- NOTE | 2022-09-20 11:52 | NUR ---
CALL PLACED TO PTS FRIEND JULIAN WHITE [phone] TO INFORM PTS CHILDREN OF EMERGENCY SURGERY PER PTS REQUEST.
--- NOTE | 2022-09-20 11:54 | NUR ---
per staff nuclear medicine technologist additional 2l ns hung
[2022-09-20] MEDS ORDERED: ondansetron/PF 4mg/2ml inj IV PRN (11:55)
[2022-09-20] MEDS ORDERED: metoclopramide 5 mg/ml inj IV PRN (11:55)
[2022-09-20] MEDS ORDERED: potassium Cl 20 mEq SR tablet PO PRN ×3 (11:55→17:30)
[2022-09-20] MEDS ORDERED: magnesium 2GM in 50ml NS 50 ML IV PRN (11:55)
[2022-09-20] MEDS ORDERED: morphine 2 MG/ML inj. syringe IV PRN (11:55)
[2022-09-20] MEDS ORDERED: magnesium hydroxide 30ml (MOM) UD suspension PO PRN (11:55)
[2022-09-20] MEDS ORDERED: HYDROmorphone inj. 0.5 MG/0.5 ML DISP.SYRIN IV PRN (11:55)
[2022-09-20] MEDS ORDERED: HYDROmorphone/PF 0.2 MG/ML SYRINGE IV PRN (11:55)
[2022-09-20] MEDS ORDERED: magnesium 4gm in 100ml NS 100 ML IV PRN (11:55)
[2022-09-20] MEDS ORDERED: magnesium Cl slow-release 64mg tablet PO PRN (11:55)
[2022-09-20] MEDS ORDERED: acetaminophen 325mg tablet PO PRN (11:55)
[2022-09-20] MEDS ORDERED: rocuronium 10mg/ml inj IV ONE (12:40)
[2022-09-20] MEDS ORDERED: sevoflurane 250ml liquid IH ONE (12:40)
[2022-09-20] MEDS ORDERED: midazolam 1 mg/ML 2ml injection ONE (12:46)
[2022-09-20] MEDS ORDERED: fentaNYL /PF 50mcg/ml 5ml ampule ONE (12:46)
[2022-09-20] MEDS ORDERED: LIDOcaine 2% (20mg/ml) 5ml vial ONE (13:44)
[2022-09-20] MEDS ORDERED: propofol inj 20 ML IV ONE (13:44)
[2022-09-20] MEDS ORDERED: albumin (Human) 5% 250ml 250 ML IV ONE (14:35)
[2022-09-20] MEDS ORDERED: morphine 10mg/ml inj. ONE (14:38)
--- NOTE | 2022-09-20 15:00 | NUR ---
Received from OR via ICU BED, accompanied by Anesthesiologist DR JIN and report given by Anesthesiologist. PT IS INTUBATED WITH SIZE 8.0 ETT AND PLACED ON VENT BY RT. PT PLACED ON BEDSIDE MONITOR, VSS. PT HAS 20G PIV TO RT HAND, TRIP LUMEN CVL TO RT IJ, A-LINE TO LEFT RADIAL. PT HAS WV TO MID ABD RUNNING @ 125mmHg, SEROSANGUINEOUS DRAINAGE NOTED IN TUBING AND CANISTER. PT HAS BOUDREAUX IN PLACE. PT GRIMACING, FENTANYL AND PROPOFOL ORDERED FOR SEDATION, WILL START AND TITRATE PT TOLERATES TO DESIRED EFFECT. WILL CONTINUE TO ASSESS
[2022-09-20 15:21] LABS: ABG BASE EXCESS -12.7 mmol/L (-2.0-2.0); ABG HCO3 13.3 mmol/L (22.0-26.0); ABG PCO2 (T) 30.1 mmHg (35.0-48.0); ABG PH (T) 7.261 (7.340-7.440); FCOHb 0.3 % (0.0-3.9); FMetHb 0.3 % (0.0-1.5); FO2Hb 98.4 % (94-97); MODE VENT - SIMV; PATIENT TEMPERATURE 36.4; PEEP 5 cm H2O; RESPIRATORY RATE 14 b/min; TIDAL VOLUME 600 mL; TOTAL HEMOGLOBIN 8.4 G/dl (14.0-17.9)
[2022-09-20 15:23] LABS: BASOPHILS % (AUTO) 0.1 % (0-1); EOSINOPHILS % (AUTO) 0 % (0-6); HEMATOCRIT 23.8 % (42.0-52.0); HEMOGLOBIN 7.4 g/dl (14.0-17.9); LYMPHOCYTES # (AUTO) 0.4 X10'3 (1.1-4.8); LYMPHOCYTES % (AUTO) 2.7 % (21-51); MEAN CORPUSCULAR HGB CONC 31.3 g/dL (33.0-36.5); MEAN CORPUSCULAR VOLUME 79.7 FL (78-98); MEAN PLATELET VOLUME 6.4 FL (7.4-10.4); MONOCYTES # (AUTO) 0.4 X10'3 (0-0.9); MONOCYTES % (AUTO) 2.9 % (2-12); NEUTROPHILS # (AUTO) 13.8 X10'3 (1.8-7.7); NEUTROPHILS % (AUTO) 94.3 % (42-75); PLATELET COUNT 266 X10'3 (140-440); RED BLOOD COUNT 2.98 X10'6 (4.70-6.10); RED CELL DISTRIBUTION WIDTH 16.4 % (11.5-14.5); WHITE BLOOD COUNT 14.6 X10'3 (4.5-11.0)
[2022-09-20] MEDS: FENTANYL-0.9 % NACL/PF 100 ML IV PRN ×2 (15:31→20:14)
[2022-09-20] MEDS: propofol 1000mg/100ml bottle 100 ML IV SCH (15:32)
--- NOTE | 2022-09-20 16:00 | NUR ---
PATIENT HAS MET ALL CRITERIA FOR TRANSFER TO THE ICU FLOOR. VSS. DRESSINGS INTACT. BED LOW, CALL LIGHT PRESENT AND 3 RAILS UP ON ICU BED. ORLIN RN PRESENT TO ACCEPT CARE OF PATIENT AND REPORT HAS BEEN GIVEN. ALL QUESTIONS ANSWERED TO ACCEPTING RN.
[2022-09-20 16:06] LABS: ALANINE AMINOTRANSFERASE 19 U/L (12-78); ALBUMIN 2.4 G/DL (3.4-5.0); ALBUMIN/GLOBULIN RATIO 0.9 (1.1-1.5); ALKALINE PHOSPHATASE 53 IU/L (46-116); ANION GAP 17 (8-16); ASPARTATE AMINO TRANSFERASE 17 U/L (10-37); BILIRUBIN,TOTAL 0.4 MG/DL (0.1-1.0); BLOOD UREA NITROGEN 24 MG/DL (7-18); BUN/CREATININE RATIO 11.2 (10.0-20.0); CHLORIDE 110 MMOL/L (99-107); CREATININE 2.14 MG/DL (0.60-1.10); GLUCOSE 161 MG/DL (70-104); POTASSIUM 3.4 MMOL/L (3.5-5.1); SODIUM 142 MMOL/L (135-145); TOTAL CARBON DIOXIDE 15.5 MMOL/L (24-32); eCRCL 28 ML/MIN; eGFR 31 ML/MIN
--- NOTE | 2022-09-20 16:37 | NUR ---
Received report from recovery nurse, LENARD Claros. Assumed care of pt in room 2009
[2022-09-20 17:47] LABS: ABG BASE EXCESS -10.8 mmol/L (-2.0-2.0); ABG HCO3 14.6 mmol/L (22.0-26.0); ABG OXYGEN SATURATION 97.5 % (94-97); ABG PCO2 (T) 29.7 mmHg (35.0-48.0); ABG PH (T) 7.307 (7.340-7.440); ABG PO2 (T) 114.6 mmHg (75.0-100.0); FCOHb 0.4 % (0.0-3.9); FHHb 2.5 % (0.0-5.0); FMetHb 0.3 % (0.0-1.5); FO2Hb 96.8 % (94-97); MODE VENT - SIMV; PATIENT TEMPERATURE 36.6; PEEP 5 cm H2O; RESPIRATORY RATE 14 b/min; TIDAL VOLUME 500 mL; TOTAL HEMOGLOBIN 8.1 G/dl (14.0-17.9)
[2022-09-20 18:07] LABS: MAGNESIUM 1.1 MG/DL (1.5-2.4)
--- NOTE | 2022-09-20 18:20 | NUR ---
Patient in room CICU 2008. I have received report from Eder WEINBERG and had the opportunity to ask questions and assume patient care.
--- NOTE | 2022-09-20 18:23 | NUR ---
Problems reprioritized. Patient report given, questions answered & plan of care reviewed with LENARD Valles.
[2022-09-20] MEDS ORDERED: potassium Cl 40MEQ/1/2NS 520ml 520 ML IV ONE (18:35)
[2022-09-20] MEDS: K and/or MAG REPLACEMENT MC SCH (20:00)
[2022-09-20] MEDS: docusate sod 100mg capsule PO SCH (20:00)
[2022-09-20] MEDS ORDERED: enoxaparin 30mg/0.3ml syringe SQ SCH (20:00)
[2022-09-20 20:26] LABS: ALBUMIN 2.4 G/DL (3.4-5.0); ANION GAP 16 (8-16); BLOOD UREA NITROGEN 28 MG/DL (7-18); BUN/CREATININE RATIO 12.5 (10.0-20.0); CHLORIDE 110 MMOL/L (99-107); CREATININE 2.24 MG/DL (0.60-1.10); GLUCOSE 153 MG/DL (70-104); POTASSIUM 3.4 MMOL/L (3.5-5.1); SODIUM 142 MMOL/L (135-145); TOTAL CARBON DIOXIDE 15.6 MMOL/L (24-32); eCRCL 27 ML/MIN; eGFR 29 ML/MIN
--- NOTE | 2022-09-20 21:50 | NUR ---
MD Colón rounding on patient via tele. updated on patient status, including low urine output and critically low calcium. New orders for blood transfusion and IV meds received. Will continue to monitor patient.
[2022-09-20] MEDS ORDERED: calcium chloride 100 MG/1 ML inj IV ONE (21:55)
[2022-09-20] MEDS: sodium bicarbonate (8.4%) inj. 150 MEQ in dextrose 5%-water 1,000 ML IV SCH (23:16)
[2022-09-21] VITALS (34 sets, daily range): BP systolic 82–124; BP diastolic 47–74; PULSE 84–97; RESP 14–21; O2SAT 96–99
[2022-09-21] MEDS: FENTANYL-0.9 % NACL/PF 100 ML IV PRN ×3 (00:54→22:13)
[2022-09-21] MEDS: propofol 1000mg/100ml bottle 100 ML IV SCH ×3 (02:08→23:03)
[2022-09-21 02:42] LABS: BASOPHILS % (AUTO) 0.1 % (0-1); EOSINOPHILS % (AUTO) 0 % (0-6); HEMATOCRIT 24.1 % (42.0-52.0); HEMOGLOBIN 7.6 g/dl (14.0-17.9); LYMPHOCYTES # (AUTO) 0.7 X10'3 (1.1-4.8); LYMPHOCYTES % (AUTO) 5.6 % (21-51); MEAN CORPUSCULAR HEMOGLOBIN 25.8 PG (27.0-31.0); MEAN CORPUSCULAR HGB CONC 31.4 g/dL (33.0-36.5); MEAN CORPUSCULAR VOLUME 82.1 FL (78-98); MEAN PLATELET VOLUME 6.9 FL (7.4-10.4); MONOCYTES # (AUTO) 0.5 X10'3 (0-0.9); NEUTROPHILS % (AUTO) 90.3 % (42-75); PLATELET COUNT 239 X10'3 (140-440); RED BLOOD COUNT 2.93 X10'6 (4.70-6.10); RED CELL DISTRIBUTION WIDTH 17.3 % (11.5-14.5); WHITE BLOOD COUNT 13.3 X10'3 (4.5-11.0)
[2022-09-21 02:51] LABS: ALBUMIN 2.1 G/DL (3.4-5.0); ANION GAP 14 (8-16); BLOOD UREA NITROGEN 30 MG/DL (7-18); BUN/CREATININE RATIO 12.6 (10.0-20.0); CALCIUM 6.8 MG/DL (8.5-10.1); CHLORIDE 111 MMOL/L (99-107); CREATININE 2.39 MG/DL (0.60-1.10); GLUCOSE 144 MG/DL (70-104); MAGNESIUM 2.1 MG/DL (1.5-2.4); POTASSIUM 3.8 MMOL/L (3.5-5.1); SODIUM 141 MMOL/L (135-145); TOTAL CARBON DIOXIDE 16.3 MMOL/L (24-32); eCRCL 25 ML/MIN; eGFR 27 ML/MIN
[2022-09-21 03:22] LABS: ABG BASE EXCESS -8.9 mmol/L (-2.0-2.0); ABG OXYGEN SATURATION 99.5 % (94-97); ABG PCO2 (T) 30.8 mmHg (35.0-48.0); ABG PH (T) 7.334 (7.340-7.440); ABG PO2 (T) 433.8 mmHg (75.0-100.0); FCOHb 0.6 % (0.0-3.9); FHHb 0.5 % (0.0-5.0); FMetHb 0.4 % (0.0-1.5); FO2Hb 98.5 % (94-97); MODE VENT - SIMV; PATIENT TEMPERATURE 37.1; PEEP 5 cm H2O; RESPIRATORY RATE 14 b/min; TIDAL VOLUME 500 mL; TOTAL HEMOGLOBIN 8.5 G/dl (14.0-17.9)
[2022-09-21] MEDS ORDERED: ringers solution, lacted 1,000 ML IV ONE ×3 (07:20→09:50)
[2022-09-21] MEDS: sodium bicarbonate (8.4%) inj. 150 MEQ in dextrose 5%-water 1,000 ML IV SCH ×2 (07:45→20:26)
[2022-09-21] MEDS: famotidine/PF 10 mg/ml inj IV SCH (07:50)
[2022-09-21] MEDS ORDERED: enoxaparin 40mg/0.4ml syringe SQ SCH (08:00)
[2022-09-21] MEDS: docusate sod 100mg capsule PO SCH ×2 (08:00→20:00)
[2022-09-21] MEDS: K and/or MAG REPLACEMENT MC SCH ×2 (08:00→20:00)
--- NOTE | 2022-09-21 09:52 | NUR ---
informed of sbp in the 70's liter lr bolus now
[2022-09-21] MEDS ORDERED: HYDR-3965 PO (11:13)
[2022-09-21] MEDS ORDERED: FAMO20TA82 PO (11:13)
[2022-09-21] MEDS ORDERED: DOCU-391 PO (11:13)
[2022-09-21] MEDS ORDERED: NICO-687 TOP (11:13)
--- NOTE | 2022-09-21 12:15 | NUR ---
Low moon consult: Pt is s/p exploratory laparotomy, lysis of adhesions on 09/20 with post operative complications per EMR. Pt is currently intubated and sedated with propofol running at 5.3,l/hr (providing 140 kcal/d) and with an NG to suction per EMR. Pt with a moon score of 12 has an abd surgical wound with drain and wound vac in place per EMR. LBM on 09/20 per EMR. Will continue to monitor and make recommendations as medically appropriate. Recommendations: 1.If TF and propofol at 5.3ml/hr (provides 140 kcals/d), continuous Vital AF 1.2 via NGT with 70ml/hr goal rate. Once at goal to provide 1680ml total volume/day, 2016 kcal, 117g protein, and 1362ml of water. 2.Monitor propofol rate, actual scaled wt, and need to adjust TF recs 3.free water flush per physician; monitor serum Na 4.If TF, prealbumin q Sunday/ 5 Scaled wt this admit;subsequent daily scaled wts 6.bowel care per physician Addendum: 09/21/22 at [address] Amended: Links added.
[2022-09-21] MEDS: dextrose 5%-lactated ringers 1,000 ML IV SCH ×2 (13:45→20:58)
[2022-09-21 14:25] LABS: BASOPHILS % (AUTO) 0.1 % (0-1); EOSINOPHILS % (AUTO) 0 % (0-6); HEMATOCRIT 22.4 % (42.0-52.0); HEMOGLOBIN 7.3 g/dl (14.0-17.9); LYMPHOCYTES # (AUTO) 0.7 X10'3 (1.1-4.8); LYMPHOCYTES % (AUTO) 7.1 % (21-51); MEAN CORPUSCULAR HEMOGLOBIN 26.3 PG (27.0-31.0); MEAN CORPUSCULAR HGB CONC 32.6 g/dL (33.0-36.5); MEAN CORPUSCULAR VOLUME 80.7 FL (78-98); MEAN PLATELET VOLUME 7.1 FL (7.4-10.4); MONOCYTES # (AUTO) 0.5 X10'3 (0-0.9); NEUTROPHILS # (AUTO) 8.2 X10'3 (1.8-7.7); NEUTROPHILS % (AUTO) 87.8 % (42-75); PLATELET COUNT 246 X10'3 (140-440); RED BLOOD COUNT 2.77 X10'6 (4.70-6.10); RED CELL DISTRIBUTION WIDTH 17.1 % (11.5-14.5); WHITE BLOOD COUNT 9.4 X10'3 (4.5-11.0)
[2022-09-21 14:36] LABS: ALANINE AMINOTRANSFERASE 20 U/L (12-78); ALBUMIN 1.8 G/DL (3.4-5.0); ALBUMIN/GLOBULIN RATIO 0.6 (1.1-1.5); ALKALINE PHOSPHATASE 60 IU/L (46-116); ANION GAP 9 (8-16); ASPARTATE AMINO TRANSFERASE 17 U/L (10-37); BILIRUBIN,TOTAL 0.3 MG/DL (0.1-1.0); BLOOD UREA NITROGEN 35 MG/DL (7-18); CALCIUM 6.3 MG/DL (8.5-10.1); CHLORIDE 109 MMOL/L (99-107); CREATININE 2.19 MG/DL (0.60-1.10); GLUCOSE 106 MG/DL (70-104); MAGNESIUM 1.8 MG/DL (1.5-2.4); PHOSPHORUS 3.9 MG/DL (2.3-4.5); POTASSIUM 3.6 MMOL/L (3.5-5.1); PREALBUMIN 9.8 MG/DL (19-36); SODIUM 140 MMOL/L (135-145); TOTAL CARBON DIOXIDE 21.9 MMOL/L (24-32); TOTAL PROTEIN 4.9 G/DL (6.4-8.2); eCRCL 28 ML/MIN; eGFR 30 ML/MIN
[2022-09-21] MEDS: heparin, porcine 5000 units/ml vial SQ SCH (16:18)
--- NOTE | 2022-09-21 18:30 | NUR ---
Patient in room CICU 2008. I have received report from Mary WEINBERG and had the opportunity to ask questions and assume patient care.
[2022-09-21] MEDS: mineral oil/petrolatum ophthal oint EACHEYE SCH (20:00)
[2022-09-21] MEDS: normal saline 1000ml 1,000 ML IV SCH (22:14)
[2022-09-22] VITALS (41 sets, daily range): BP systolic 96–141; BP diastolic 48–75; PULSE 81–95; RESP 13–24; TEMP 98.8–99.4; O2SAT 94–100
[2022-09-22] MEDS: heparin, porcine 5000 units/ml vial SQ SCH ×4 (01:01→23:35)
[2022-09-22] MEDS: sodium bicarbonate (8.4%) inj. 150 MEQ in dextrose 5%-water 1,000 ML IV SCH (01:41)
[2022-09-22] MEDS: mineral oil/petrolatum ophthal oint EACHEYE SCH ×4 (02:00→20:00)
[2022-09-22 03:31] LABS: BASOPHILS % (AUTO) 0.1 % (0-1); EOSINOPHILS % (AUTO) 0.1 % (0-6); LYMPHOCYTES # (AUTO) 0.6 X10'3 (1.1-4.8); MEAN CORPUSCULAR HGB CONC 32.1 g/dL (33.0-36.5); MEAN CORPUSCULAR VOLUME 81.1 FL (78-98); MEAN PLATELET VOLUME 7.1 FL (7.4-10.4); MONOCYTES # (AUTO) 0.3 X10'3 (0-0.9); MONOCYTES % (AUTO) 5.4 % (2-12); NEUTROPHILS # (AUTO) 5.1 X10'3 (1.8-7.7); NEUTROPHILS % (AUTO) 84.4 % (42-75); PLATELET COUNT 234 X10'3 (140-440); RED BLOOD COUNT 2.63 X10'6 (4.70-6.10); RED CELL DISTRIBUTION WIDTH 17.2 % (11.5-14.5); WHITE BLOOD COUNT 6.1 X10'3 (4.5-11.0)
[2022-09-22 03:33] LABS: HEMATOCRIT 21.3 % (42.0-52.0); HEMOGLOBIN 6.8 g/dl (14.0-17.9)
[2022-09-22 03:44] LABS: ALBUMIN 1.6 G/DL (3.4-5.0); ANION GAP 9 (8-16); BLOOD UREA NITROGEN 39 MG/DL (7-18); BUN/CREATININE RATIO 16.7 (10.0-20.0); CALCIUM 6.5 MG/DL (8.5-10.1); CHLORIDE 111 MMOL/L (99-107); CREATININE 2.33 MG/DL (0.60-1.10); GLUCOSE 106 MG/DL (70-104); MAGNESIUM 1.7 MG/DL (1.5-2.4); POTASSIUM 3.2 MMOL/L (3.5-5.1); SODIUM 140 MMOL/L (135-145); TOTAL CARBON DIOXIDE 19.7 MMOL/L (24-32); eCRCL 30 ML/MIN; eGFR 28 ML/MIN
[2022-09-22] MEDS: dextrose 5%-lactated ringers 1,000 ML IV SCH ×4 (03:45→23:34)
[2022-09-22] MEDS: propofol 1000mg/100ml bottle 100 ML IV SCH ×4 (03:51→23:34)
[2022-09-22] MEDS: FENTANYL-0.9 % NACL/PF 100 ML IV PRN ×4 (04:01→17:48)
[2022-09-22] MEDS: potassium Cl 40MEQ/270ML bag 270 ML IV PRN (05:52)
--- NOTE | 2022-09-22 06:34 | NUR ---
Problems reprioritized. Patient report given, questions answered & plan of care reviewed with Hema WEINBERG.
[2022-09-22] MEDS: docusate sod 100mg capsule PO SCH (06:39)
[2022-09-22] MEDS: nicotine 21mg patch - 24 hr TD SCH (07:45)
[2022-09-22] MEDS: famotidine/PF 10 mg/ml inj IV SCH (07:45)
[2022-09-22] MEDS: K and/or MAG REPLACEMENT MC SCH ×2 (07:49→20:00)
--- NOTE | 2022-09-22 09:00 | NUR ---
Spoke to Dr. Powell; plans to take patient back to OR for Abd wound closure on Sunday09/24/22 at 1000. Jinny in OR called to schedule. Okay to give SQ Heparin today and Sunday. Trickle Feed okay per Dr. Powell.
--- NOTE | 2022-09-22 11:35 | NUR ---
TF consult: Noted pt already with TF running at 10 mL/hr. Per MD at [facility] TF to continue at a trickle rate which can be increased to 20 mL/hr if pt able to tolerate current rate of 10 mL/hr. See below for TF advancement recs for once okay to advance goal rate to meet patient's estimated nutrient needs. Propofol visualized at bedside to be running at 8.85 mL/hr providing 234 kcal/day. Pt continues receiving D5LR at 150 mL/hr providing 612 kcal/day. Per RN at [facility] pt tentatively to go back to OR Sunday 09/24. LBM 09/20 with routine bowel care being held at this time. Will continue to follow closely and make recommendations as appropriate. Recommendations: 1. Continuous trickle TF per MD via NGT using Vital AF at 20 mL/hr to provide 480 mL total volume/day, 576 kcal, 36 g protein, and 389 mL water 2. Once okay to advance TF rate, IF Propofol at 8.85 mL/hr (234 kcal/day), continuous Vital AF with 60 mL/hr goal rate to provide 1440 mL total volume/day, 1728 kcal, 108 g protein, and 1168 mL water 3. Monitor Propofol rate and need to adjust recs; IF Propofol discontinued, continuous Vital AF with 70 mL/hr goal rate 4. Monitor serum Na for water flush recommendations with TF rate advancement 5. Prealbumin q Sunday/ 6. Daily scaled weights 7. Bowel care per physician Addendum: 09/22/22 at [address] Amended: Links added.
[2022-09-22] MEDS ORDERED: magnesium hydroxide 30ml (MOM) UD suspension NG PRN (12:07)
[2022-09-22 14:17] LABS: BASOPHILS % (AUTO) 0.3 % (0-1); EOSINOPHILS % (AUTO) 0.4 % (0-6); HEMATOCRIT 25.2 % (42.0-52.0); LYMPHOCYTES # (AUTO) 0.8 X10'3 (1.1-4.8); LYMPHOCYTES % (AUTO) 12.6 % (21-51); MEAN CORPUSCULAR HEMOGLOBIN 26.1 PG (27.0-31.0); MEAN CORPUSCULAR HGB CONC 31.9 g/dL (33.0-36.5); MEAN CORPUSCULAR VOLUME 81.9 FL (78-98); MONOCYTES # (AUTO) 0.3 X10'3 (0-0.9); MONOCYTES % (AUTO) 5.6 % (2-12); NEUTROPHILS % (AUTO) 81.1 % (42-75); PLATELET COUNT 234 X10'3 (140-440); RED BLOOD COUNT 3.08 X10'6 (4.70-6.10); RED CELL DISTRIBUTION WIDTH 16.5 % (11.5-14.5); WHITE BLOOD COUNT 6.2 X10'3 (4.5-11.0)
[2022-09-22 14:30] LABS: ALANINE AMINOTRANSFERASE 18 U/L (12-78); ALBUMIN 1.6 G/DL (3.4-5.0); ALBUMIN/GLOBULIN RATIO 0.5 (1.1-1.5); ALKALINE PHOSPHATASE 61 IU/L (46-116); ANION GAP 9 (8-16); ASPARTATE AMINO TRANSFERASE 16 U/L (10-37); BILIRUBIN,TOTAL 0.2 MG/DL (0.1-1.0); BLOOD UREA NITROGEN 40 MG/DL (7-18); BUN/CREATININE RATIO 19.6 (10.0-20.0); CALCIUM 6.5 MG/DL (8.5-10.1); CHLORIDE 112 MMOL/L (99-107); CREATININE 2.04 MG/DL (0.60-1.10); GLUCOSE 114 MG/DL (70-104); POTASSIUM 3.4 MMOL/L (3.5-5.1); SODIUM 141 MMOL/L (135-145); TOTAL CARBON DIOXIDE 19.8 MMOL/L (24-32); TOTAL PROTEIN 4.6 G/DL (6.4-8.2); eCRCL 35 ML/MIN; eGFR 33 ML/MIN
[2022-09-22] MEDS ORDERED: potassium Cl 40MEQ/270ML bag 270 ML IV ONE (14:50)
--- NOTE | 2022-09-22 18:14 | NUR ---
Problems reprioritized. Patient report given, questions answered & plan of care reviewed with Dejah WEINBERG.
--- NOTE | 2022-09-22 18:30 | NUR ---
Patient in room CICU 2008. I have received report from Hema WEINBERG and had the opportunity to ask questions and assume patient care.
[2022-09-22] MEDS: docusate sodium 100mg/10ml UD cup NG SCH (21:42)
[2022-09-22] MEDS: fentaNYL 2,500 MCG in Normal Saline 250ml IV soln bag IV SCH (21:42)
[2022-09-23] VITALS (30 sets, daily range): BP systolic 97–137; BP diastolic 50–77; PULSE 81–101; RESP 11–23; O2SAT 91–99
[2022-09-23] MEDS: mineral oil/petrolatum ophthal oint EACHEYE SCH ×4 (02:12→20:53)
[2022-09-23 03:00] LABS: BASOPHILS % (AUTO) 0.3 % (0-1); EOSINOPHILS % (AUTO) 0.7 % (0-6); HEMATOCRIT 25.4 % (42.0-52.0); LYMPHOCYTES # (AUTO) 0.7 X10'3 (1.1-4.8); LYMPHOCYTES % (AUTO) 13.6 % (21-51); MEAN CORPUSCULAR HEMOGLOBIN 25.8 PG (27.0-31.0); MEAN CORPUSCULAR HGB CONC 31.7 g/dL (33.0-36.5); MEAN CORPUSCULAR VOLUME 81.5 FL (78-98); MEAN PLATELET VOLUME 7.3 FL (7.4-10.4); MONOCYTES # (AUTO) 0.4 X10'3 (0-0.9); MONOCYTES % (AUTO) 7.5 % (2-12); NEUTROPHILS # (AUTO) 4.2 X10'3 (1.8-7.7); NEUTROPHILS % (AUTO) 77.9 % (42-75); PLATELET COUNT 250 X10'3 (140-440); RED BLOOD COUNT 3.12 X10'6 (4.70-6.10); RED CELL DISTRIBUTION WIDTH 16.7 % (11.5-14.5); WHITE BLOOD COUNT 5.4 X10'3 (4.5-11.0)
[2022-09-23 03:11] LABS: ALBUMIN 1.4 G/DL (3.4-5.0); ANION GAP 9 (8-16); BLOOD UREA NITROGEN 35 MG/DL (7-18); BUN/CREATININE RATIO 19.2 (10.0-20.0); CALCIUM 6.8 MG/DL (8.5-10.1); CHLORIDE 113 MMOL/L (99-107); CREATININE 1.82 MG/DL (0.60-1.10); GLUCOSE 110 MG/DL (70-104); MAGNESIUM 1.6 MG/DL (1.5-2.4); POTASSIUM 3.8 MMOL/L (3.5-5.1); SODIUM 142 MMOL/L (135-145); TOTAL CARBON DIOXIDE 20.1 MMOL/L (24-32); eCRCL 39 ML/MIN; eGFR 37 ML/MIN
[2022-09-23 04:24] LABS: ABG BASE EXCESS -6.7 mmol/L (-2.0-2.0); ABG HCO3 18.5 mmol/L (22.0-26.0); ABG OXYGEN SATURATION 95.3 % (94-97); ABG PCO2 (T) 35.3 mmHg (35.0-48.0); ABG PH (T) 7.336 (7.340-7.440); ABG PO2 (T) 79.3 mmHg (75.0-100.0); FCOHb 0.3 % (0.0-3.9); FHHb 4.7 % (0.0-5.0); FMetHb 0.1 % (0.0-1.5); FO2Hb 94.9 % (94-97); MODE SIMV VC; PATIENT TEMPERATURE 36.8; PEEP 5 cm H2O; RESPIRATORY RATE 14 b/min; TIDAL VOLUME 500 mL
[2022-09-23] MEDS: dextrose 5%-lactated ringers 1,000 ML IV SCH ×4 (05:12→21:16)
[2022-09-23] MEDS: propofol 1000mg/100ml bottle 100 ML IV SCH ×4 (05:13→20:16)
[2022-09-23] MEDS: fentaNYL 2,500 MCG in Normal Saline 250ml IV soln bag IV SCH ×4 (05:14→20:37)
--- NOTE | 2022-09-23 06:48 | NUR ---
Problems reprioritized. Patient report given, questions answered & plan of care reviewed with Casper WEINBERG.
[2022-09-23] MEDS: normal saline 1000ml 1,000 ML IV SCH (06:53)
[2022-09-23] MEDS: docusate sodium 100mg/10ml UD cup NG SCH ×2 (08:00→20:54)
[2022-09-23] MEDS: K and/or MAG REPLACEMENT MC SCH ×2 (08:00→20:00)
[2022-09-23] MEDS ORDERED: ringers solution, lacted 1,000 ML IV ONE (09:25)
[2022-09-23] MEDS: heparin, porcine 5000 units/ml vial SQ SCH ×2 (09:50→16:22)
[2022-09-23] MEDS: nicotine 21mg patch - 24 hr TD SCH (09:52)
[2022-09-23] MEDS: famotidine/PF 10 mg/ml inj IV SCH (09:56)
[2022-09-23] MEDS: metroNIDAZOLE-Flagyl 500mg/NS 100 ML IV SCH ×3 (10:16→23:11)
[2022-09-23] MEDS: piperacillin/tazo 3.375gm/50ml 50 ML IV SCH ×2 (11:36→16:22)
[2022-09-23 19:16] LABS: ALBUMIN 1.3 G/DL (3.4-5.0); ANION GAP 7 (8-16); BLOOD UREA NITROGEN 31 MG/DL (7-18); CALCIUM 6.4 MG/DL (8.5-10.1); CHLORIDE 114 MMOL/L (99-107); CREATININE 1.55 MG/DL (0.60-1.10); GLUCOSE 111 MG/DL (70-104); POTASSIUM 3.5 MMOL/L (3.5-5.1); SODIUM 143 MMOL/L (135-145); TOTAL CARBON DIOXIDE 22.1 MMOL/L (24-32); eCRCL 46 ML/MIN; eGFR 45 ML/MIN
[2022-09-23] MEDS: acetaminophen 325mg/10.15ml oral unit dose solution NG PRN (20:55)
[2022-09-24] VITALS (32 sets, daily range): BP systolic 77–162; BP diastolic 44–91; PULSE 80–100; RESP 12–27; O2SAT 91–100
[2022-09-24] MEDS: piperacillin/tazo 3.375gm/50ml 50 ML IV SCH ×3 (00:01→15:48)
[2022-09-24] MEDS: propofol 1000mg/100ml bottle 100 ML IV SCH ×4 (00:58→23:00)
[2022-09-24 02:17] LABS: BASOPHILS % (AUTO) 0.3 % (0-1); EOSINOPHILS # (AUTO) 0.1 X10'3 (0-0.9); EOSINOPHILS % (AUTO) 1.1 % (0-6); HEMATOCRIT 28.6 % (42.0-52.0); HEMOGLOBIN 9.4 g/dl (14.0-17.9); LYMPHOCYTES % (AUTO) 13.2 % (21-51); MEAN CORPUSCULAR HEMOGLOBIN 26.6 PG (27.0-31.0); MEAN CORPUSCULAR HGB CONC 32.7 g/dL (33.0-36.5); MEAN CORPUSCULAR VOLUME 81.1 FL (78-98); MEAN PLATELET VOLUME 6.9 FL (7.4-10.4); MONOCYTES # (AUTO) 0.6 X10'3 (0-0.9); MONOCYTES % (AUTO) 8.3 % (2-12); NEUTROPHILS # (AUTO) 5.7 X10'3 (1.8-7.7); NEUTROPHILS % (AUTO) 77.1 % (42-75); PLATELET COUNT 294 X10'3 (140-440); RED BLOOD COUNT 3.52 X10'6 (4.70-6.10); RED CELL DISTRIBUTION WIDTH 16.7 % (11.5-14.5); WHITE BLOOD COUNT 7.4 X10'3 (4.5-11.0)
[2022-09-24] MEDS: mineral oil/petrolatum ophthal oint EACHEYE SCH ×4 (02:19→20:00)
[2022-09-24] MEDS: acetaminophen 325mg/10.15ml oral unit dose solution NG PRN (02:20)
[2022-09-24 02:33] LABS: ALBUMIN 1.3 G/DL (3.4-5.0); ANION GAP 11 (8-16); BLOOD UREA NITROGEN 29 MG/DL (7-18); CALCIUM 6.9 MG/DL (8.5-10.1); CREATININE 1.61 MG/DL (0.60-1.10); GLUCOSE 113 MG/DL (70-104); MAGNESIUM 1.4 MG/DL (1.5-2.4); POTASSIUM 3.4 MMOL/L (3.5-5.1); SODIUM 145 MMOL/L (135-145); TOTAL CARBON DIOXIDE 21.6 MMOL/L (24-32); eCRCL 45 ML/MIN; eGFR 43 ML/MIN
[2022-09-24 02:35] LABS: CHLORIDE 112 MMOL/L (99-107)
[2022-09-24] MEDS ORDERED: potassium Cl 20mEq/100mL bag 100 ML IV SCH (02:45)
[2022-09-24] MEDS: potassium Cl 40MEQ/270ML bag 270 ML IV PRN (03:07)
[2022-09-24] MEDS: dextrose 5%-lactated ringers 1,000 ML IV SCH ×3 (03:08→20:33)
[2022-09-24] MEDS ORDERED: magnesium 4gm in 100ml NS 100 ML IV PRN (03:15)
[2022-09-24] MEDS ORDERED: magnesium 2GM in 50ml NS 50 ML IV PRN (03:15)
[2022-09-24] MEDS ORDERED: magnesium Cl slow-release 64mg tablet PO PRN (03:15)
[2022-09-24] MEDS: fentaNYL 2,500 MCG in Normal Saline 250ml IV soln bag IV SCH ×3 (04:23→19:18)
[2022-09-24 04:28] LABS: ABG BASE EXCESS -6.2 mmol/L (-2.0-2.0); ABG HCO3 18.9 mmol/L (22.0-26.0); ABG OXYGEN SATURATION 95.3 % (94-97); ABG PCO2 (T) 36.6 mmHg (35.0-48.0); ABG PH (T) 7.333 (7.340-7.440); ABG PO2 (T) 84.6 mmHg (75.0-100.0); ALLEN'S TEST Modified; FCOHb 0.1 % (0.0-3.9); FHHb 4.7 % (0.0-5.0); FMetHb 0.1 % (0.0-1.5); FO2Hb 95.1 % (94-97); MODE SIMV; PATIENT TEMPERATURE 37.7; PEEP 5 cm H2O; RESPIRATORY RATE 14 b/min; TIDAL VOLUME 500 mL
[2022-09-24] MEDS: K and/or MAG REPLACEMENT MC SCH ×2 (08:00→20:00)
[2022-09-24] MEDS: docusate sodium 100mg/10ml UD cup NG SCH ×2 (08:00→20:00)
[2022-09-24] MEDS: famotidine/PF 10 mg/ml inj IV SCH (08:18)
[2022-09-24] MEDS: metroNIDAZOLE-Flagyl 500mg/NS 100 ML IV SCH (08:18)
[2022-09-24] MEDS: nicotine 21mg patch - 24 hr TD SCH (08:24)
[2022-09-24] MEDS ORDERED: normal saline 1000ml 1,000 ML IV ONE (10:20)
[2022-09-24] MEDS ORDERED: rocuronium 10mg/ml inj IV ONE (12:30)
[2022-09-24] MEDS ORDERED: propofol 10mg/ml 20ml vial IV ONE (12:30)
[2022-09-24] MEDS ORDERED: sevoflurane 250ml liquid IH ONE (12:30)
--- NOTE | 2022-09-24 12:45 | NUR ---
[address] Powell to report bulging pink skin to left of wound vac packing 1230- pt to OR, reported bolus of 1 lt NS and mottling to lower extremities.
[2022-09-25] VITALS (29 sets, daily range): BP systolic 85–131; BP diastolic 49–79; PULSE 75–102; RESP 10–20; O2SAT 9–100
[2022-09-25] MEDS: piperacillin/tazo 3.375gm/50ml 50 ML IV SCH ×3 (00:07→15:57)
[2022-09-25] MEDS: mineral oil/petrolatum ophthal oint EACHEYE SCH ×2 (01:38→08:36)
[2022-09-25] MEDS ORDERED: dexmedetomidine inj. 400 MCG in normal saline 100ml IV soln 96 ML IV SCH (02:00)
[2022-09-25 02:45] LABS: BASOPHILS % (AUTO) 0.3 % (0-1); EOSINOPHILS % (AUTO) 0.6 % (0-6); HEMATOCRIT 30.4 % (42.0-52.0); HEMOGLOBIN 9.8 g/dl (14.0-17.9); LYMPHOCYTES # (AUTO) 1.4 X10'3 (1.1-4.8); MEAN CORPUSCULAR HEMOGLOBIN 26.3 PG (27.0-31.0); MEAN CORPUSCULAR HGB CONC 32.3 g/dL (33.0-36.5); MEAN CORPUSCULAR VOLUME 81.3 FL (78-98); MEAN PLATELET VOLUME 7.7 FL (7.4-10.4); MONOCYTES # (AUTO) 0.8 X10'3 (0-0.9); MONOCYTES % (AUTO) 8.9 % (2-12); NEUTROPHILS # (AUTO) 6.4 X10'3 (1.8-7.7); NEUTROPHILS % (AUTO) 74.2 % (42-75); PLATELET COUNT 347 X10'3 (140-440); RED BLOOD COUNT 3.74 X10'6 (4.70-6.10); WHITE BLOOD COUNT 8.6 X10'3 (4.5-11.0)
[2022-09-25] MEDS: dextrose 5%-lactated ringers 1,000 ML IV SCH ×3 (03:10→19:36)
[2022-09-25] MEDS: fentaNYL 2,500 MCG in Normal Saline 250ml IV soln bag IV SCH (03:11)
[2022-09-25 03:55] LABS: ABG BASE EXCESS -8.3 mmol/L (-2.0-2.0); ABG HCO3 16.4 mmol/L (22.0-26.0); ABG PCO2 (T) 31.7 mmHg (35.0-48.0); ABG PH (T) 7.335 (7.340-7.440); ABG PO2 (T) 121.1 mmHg (75.0-100.0); FMetHb 0.3 % (0.0-1.5); FO2Hb 97.7 % (94-97); MODE VENT - SIMV; PATIENT TEMPERATURE 37.8; PEEP 5 cm H2O; RESPIRATORY RATE 14 b/min; TIDAL VOLUME 500 mL; TOTAL HEMOGLOBIN 9.9 G/dl (14.0-17.9)
--- NOTE | 2022-09-25 06:18 | NUR ---
Problems reprioritized. Patient report given, questions answered & plan of care reviewed with LENARD Gaines.
[2022-09-25 06:40] LABS: ANION GAP 8 (8-16); BLOOD UREA NITROGEN 23 MG/DL (7-18); BUN/CREATININE RATIO 14.5 (10.0-20.0); CALCIUM 6.3 MG/DL (8.5-10.1); CHLORIDE 116 MMOL/L (99-107); CREATININE 1.59 MG/DL (0.60-1.10); GLUCOSE 125 MG/DL (70-104); POTASSIUM 3.9 MMOL/L (3.5-5.1); PREALBUMIN 7.8 MG/DL (19-36); SODIUM 144 MMOL/L (135-145); TOTAL CARBON DIOXIDE 19.7 MMOL/L (24-32); eCRCL 49 ML/MIN; eGFR 44 ML/MIN
[2022-09-25] MEDS: normal saline 1000ml 1,000 ML IV SCH (06:53)
[2022-09-25] MEDS: K and/or MAG REPLACEMENT MC SCH ×2 (08:00→20:33)
[2022-09-25] MEDS: docusate sodium 100mg/10ml UD cup NG SCH ×2 (08:33→20:00)
[2022-09-25] MEDS: famotidine/PF 10 mg/ml inj IV SCH (08:34)
[2022-09-25] MEDS: nicotine 21mg patch - 24 hr TD SCH (08:36)
[2022-09-25] MEDS ORDERED: albumin (human) 25% 100ml IV 400 ML IV ONE (10:35)
[2022-09-25] MEDS ORDERED: HYDROmorphone 1 mg/ml syringe IV PRN (10:40)
--- NOTE | 2022-09-25 10:41 | NUR ---
F/u 09/25: Per discussion in CICU rounds, TF are off due to plan of extubation today. Per physician, plan is to continue TF via NG tube and possibly advance to goal rate if medically able given Albumin 1.0g/dl and Prealbumin 7.8mg/dl today. During RD visit, visualized propofol off. Per EMR, D5LR running at 150ml/hr providing 612 kcal/day;see TF recs below. Recommendations: 1. Continuous trickle TF per MD via NGT using Vital AF at 20 mL/hr to provide 480 mL total volume/day, 576 kcal, 36 g protein, and 389 mL water 2. Monitor Propofol rate and need to adjust recs; IF Propofol discontinued, continuous Vital AF with 70 mL/hr goal rate 3.Monitor for successful extubation, adjust TF recs as needed 4. Monitor serum Na for water flush recommendations with TF rate advancement 5. Prealbumin q Sunday/ 6. Daily scaled weights 7. Bowel care per physician Addendum: 09/25/22 at [address] Amended: Links added.
--- NOTE | 2022-09-25 11:00 | NUR ---
Patient in room CICU 2008. I have received report from Eder WEINBERG and had the opportunity to ask questions and assume patient care.Pt was extubated at 1056 Pt on 2l/min n/c and sat 98 % VSS RR 18 " Denies and SOB " Lung sounds coarse Pt coughing up thick yellow secretions on own [place] with QS amts of urine
--- NOTE | 2022-09-25 12:10 | NUR ---
Pt incont of stool Leaking noted around rectal tube Eva care given and linen chg done REposit Abd drsg dry and intact Hypoactive bowel sounds noted Med for abd pain VSS
[2022-09-25] MEDS: albumin (Human) 5% 250ml 250 ML IV SCH ×3 (12:12→20:03)
--- NOTE | 2022-09-25 14:00 | NUR ---
Elier sm amts of Ice chips N/G remains to low intermittent suction Albumin given for low albumin levels on lab reposit and oral care given
[2022-09-25] MEDS ORDERED: albumin (Human) 5% 250ml 250 ML IV ONE (15:00)
[2022-09-25] MEDS: HYDROmorphone 1 mg/ml syringe IV PRN ×3 (15:21→23:51)
--- NOTE | 2022-09-25 15:39 | NUR ---
Remains to c/o of abd pain Med with Dilaudid 2 mg and reposit for comfort coughing up thick yellow secretions
[2022-09-25] MEDS: heparin, porcine 5000 units/ml vial SQ SCH (15:56)
--- NOTE | 2022-09-25 18:23 | NUR ---
Problems reprioritized. Patient report given, questions answered & plan of care reviewed with Elina WEINBERG.
[2022-09-26] VITALS (22 sets, daily range): BP systolic 114–137; BP diastolic 70–87; PULSE 88–104; RESP 15–24; O2SAT 94–100
[2022-09-26] MEDS: albumin (Human) 5% 250ml 250 ML IV SCH ×6 (00:03→21:36)
[2022-09-26] MEDS: heparin, porcine 5000 units/ml vial SQ SCH ×4 (00:03→23:41)
[2022-09-26] MEDS: piperacillin/tazo 3.375gm/50ml 50 ML IV SCH ×4 (00:04→23:40)
[2022-09-26] MEDS: HYDROmorphone 1 mg/ml syringe IV PRN ×4 (00:05→19:20)
[2022-09-26] MEDS: dextrose 5%-lactated ringers 1,000 ML IV SCH (01:58)
[2022-09-26 02:53] LABS: BASOPHILS % (AUTO) 0.2 % (0-1); EOSINOPHILS % (AUTO) 0.4 % (0-6); HEMATOCRIT 25.4 % (42.0-52.0); HEMOGLOBIN 8.1 g/dl (14.0-17.9); LYMPHOCYTES # (AUTO) 1.5 X10'3 (1.1-4.8); LYMPHOCYTES % (AUTO) 16.5 % (21-51); MEAN CORPUSCULAR HEMOGLOBIN 25.9 PG (27.0-31.0); MONOCYTES # (AUTO) 0.8 X10'3 (0-0.9); MONOCYTES % (AUTO) 9.2 % (2-12); NEUTROPHILS # (AUTO) 6.7 X10'3 (1.8-7.7); NEUTROPHILS % (AUTO) 73.7 % (42-75); PLATELET COUNT 339 X10'3 (140-440); RED BLOOD COUNT 3.13 X10'6 (4.70-6.10); RED CELL DISTRIBUTION WIDTH 16.5 % (11.5-14.5)
[2022-09-26 02:55] LABS: ALBUMIN 2.1 G/DL (3.4-5.0); ANION GAP 10 (8-16); BLOOD UREA NITROGEN 23 MG/DL (7-18); BUN/CREATININE RATIO 12.7 (10.0-20.0); CHLORIDE 116 MMOL/L (99-107); CREATININE 1.81 MG/DL (0.60-1.10); GLUCOSE 153 MG/DL (70-104); MAGNESIUM 1.7 MG/DL (1.5-2.4); POTASSIUM 3.5 MMOL/L (3.5-5.1); SODIUM 147 MMOL/L (135-145); TOTAL CARBON DIOXIDE 21.3 MMOL/L (24-32); eCRCL 42 ML/MIN; eGFR 38 ML/MIN
--- NOTE | 2022-09-26 06:19 | NUR ---
Problems reprioritized. Patient report given, questions answered & plan of care reviewed with ORLIN WEINBERG.
--- NOTE | 2022-09-26 06:30 | NUR ---
Patient in room CICU 2008. I have received report from LENARD De Souza and had the opportunity to ask questions and assume patient care.
[2022-09-26] MEDS: docusate sodium 100mg/10ml UD cup NG SCH ×2 (08:00→20:00)
[2022-09-26] MEDS: K and/or MAG REPLACEMENT MC SCH ×2 (08:00→20:00)
[2022-09-26] MEDS: famotidine/PF 10 mg/ml inj IV SCH (08:11)
[2022-09-26] MEDS: nicotine 21mg patch - 24 hr TD SCH (08:23)
--- NOTE | 2022-09-26 12:42 | NUR ---
TPN consult: Per EMR pt POD #2 s/p abdominal wound closer and pt extubated 09/25. Per surgeon TF to run at a trickle rate of 15 mL/hr and begin TPN. Pending discontinuation of central line with PICC placement. TPN recommendations below have been d/w clinical pharmacist. LBM 09/24 with 300 mL stool output from rectal tube per I&O. Will continue to follow closely and make recommendations as appropriate. Recommendations: 1) Continuous trickle TF per MD via NGT using Vital AF at 15 mL/hr to provide 360 mL total volume/day, 432 kcal, 27 g protein, and 292 mL water 2) Continuous TPN per MD using 2:1 Clinimix-E with 60 mL/hr goal rate and additional 100 mL 20% ILE to run at 8.33 mL/hr for 12 hours/day. To provide 1440 mL volume/day, 72 g AA, 288 g dextrose (2.68 mg/kg/min GIR), and 1467 kcal 3) TF change to Osmolite 1.2 with 70 mL/hr goal rate if okay to wean TPN and advance TF to meet 100% estimated nutrient needs 4) Advance to low fiber diet as medically indicated; continue NGTF until PO diet is advanced and pt with consistent adequate PO intake 5) Prealbumin and TG q Sunday/ 6) Daily scaled weights 7) Bowel care per physician Addendum: 09/26/22 at [address] Amended: Links added. Addendum: 09/26/22 at [address] 2:1 Dharmesh 06/24
[2022-09-26] MEDS ORDERED: Dextrose 10%-water IV solution 1,000 ML IV PRN (14:30)
[2022-09-26] MEDS ORDERED: chromic chloride inj. 10 MCG, ZINC/COPPER/MANGANESE/SELENIUM 1 ML in AA 5%/CALCIUM/LYTE... IV SCH (14:30)
--- NOTE | 2022-09-26 14:45 | NUR ---
PRESSURE ULCER EDUCATION: DEFINITION: A pressure ulcer is an area of skin that breaks down when you stay in one position too long. The constant pressure against the skin reduces the blood flow to that area and the affected tissue dies. CAUSES: "Being bedridden or in a wheelchair "Fragile skin "Having a chronic condition, such as diabetes or vascular disease "Inability to move certain parts of your body without assistance "Older age "Incontinence of urine or stool SYMPTOMS: "A reddened area that DOES NOT turn white when pressed on - this can be the beginning of a pressure ulcer "A blister, deep sore or a crater - these can be advanced pressure ulcers FIRST AID: "Relieve the pressure on this area "Keep the area clean and dry "Call your primary doctor if you see any of the above symptoms "DO NOT massage the area "DO NOT use a donut shaped or ring shaped pillow- these actually interfere with the blood flow and cause complications PREVENTION: "Check for pressure ulcers everyday "Change position at least every two hours to relieve pressure "Use items that help relieve pressure- pillows, sheepskin, foam padding, and powders. "Keep skin clean and dry "Eat healthy well balanced meals "Exercise daily IF YOU SEE ANY OF THESE SYMPTOMS WHILE IN THE HOSPITAL - TELL YOUR NURSE IMMEDIATELY. IF YOU SEE ANY OF THESE SYMPTOMS WHILE AT HOME OR HAVE ANY QUESTIONS OR CONCERNS ABOUT PRESSURE ULCERS - CALL YOUR PRIMARY DOCTOR IMMEDIATELY. Addendum: 09/26/22 at 1445 by Jordyn Mark RN Amended: Links added.
[2022-09-26] MEDS: fat emulsion 20% inj. 100 ML IV SCH (15:06)
[2022-09-27] VITALS (7 sets, daily range): BP systolic 133–146; BP diastolic 83–90; PULSE 82–89; RESP 15–22; TEMP 97.8–98.7; O2SAT 95–99
[2022-09-27] MEDS: albumin (Human) 5% 250ml 250 ML IV SCH ×7 (01:39→22:29)
[2022-09-27 02:55] LABS: PREALBUMIN 10.6 MG/DL (19-36); TRIGLYCERIDES 195 MG/DL (20-135)
--- NOTE | 2022-09-27 03:00 | NUR ---
rECEIVED PT TO 4020B AFTER REPORT FROM GABRIEL. AGREE WITH ASSESSMENT DOCUMENTED FROM GABRIEL, VSS, IV FLUIDS RUNNING AND TF, NG INPLACE. RECTAL TUBE PUTTING OUT STOOL. SUCTION AT BEDSIDE. ORIENTED TO ROOM AND CALL LIGHT.
--- NOTE | 2022-09-27 03:03 | NUR ---
transfer to 4020B per bed , report to Corinne WEINBERG given
[2022-09-27] MEDS: HYDROmorphone 1 mg/ml syringe IV PRN ×6 (05:08→23:27)
[2022-09-27] MEDS: normal saline 1000ml 1,000 ML IV SCH (06:53)
[2022-09-27] MEDS: docusate sodium 100mg/10ml UD cup NG SCH ×2 (08:00→20:00)
[2022-09-27] MEDS: K and/or MAG REPLACEMENT MC SCH ×3 (08:00→20:00)
[2022-09-27] MEDS: piperacillin/tazo 3.375gm/50ml 50 ML IV SCH ×3 (08:02→23:32)
[2022-09-27] MEDS: famotidine/PF 10 mg/ml inj IV SCH (08:02)
[2022-09-27] MEDS: heparin, porcine 5000 units/ml vial SQ SCH ×3 (08:03→23:30)
[2022-09-27] MEDS: nicotine 21mg patch - 24 hr TD SCH (08:13)
[2022-09-27 14:39] LABS: ALANINE AMINOTRANSFERASE 12 U/L (12-78); ALBUMIN 2.4 G/DL (3.4-5.0); ALBUMIN/GLOBULIN RATIO 0.9 (1.1-1.5); ALKALINE PHOSPHATASE 42 IU/L (46-116); ANION GAP 12 (8-16); ASPARTATE AMINO TRANSFERASE 16 U/L (10-37); BILIRUBIN,TOTAL 0.3 MG/DL (0.1-1.0); BLOOD UREA NITROGEN 20 MG/DL (7-18); BUN/CREATININE RATIO 10.8 (10.0-20.0); CHLORIDE 118 MMOL/L (99-107); CREATININE 1.85 MG/DL (0.60-1.10); GLUCOSE 108 MG/DL (70-104); MAGNESIUM 1.7 MG/DL (1.5-2.4); SODIUM 151 MMOL/L (135-145); TOTAL CARBON DIOXIDE 21.3 MMOL/L (24-32); eCRCL 42 ML/MIN; eGFR 37 ML/MIN
[2022-09-27 14:54] LABS: POTASSIUM 2.8 MMOL/L (3.5-5.1)
[2022-09-27] MEDS ORDERED: magnesium 4gm in 100ml NS 100 ML IV PRN (15:05)
[2022-09-27] MEDS ORDERED: magnesium Cl slow-release 64mg tablet PO PRN (15:05)
[2022-09-27] MEDS ORDERED: potassium Cl 20 mEq SR tablet PO PRN ×2 (15:05)
[2022-09-27] MEDS ORDERED: magnesium 2GM in 50ml NS 50 ML IV PRN (15:05)
--- NOTE | 2022-09-27 15:05 | NUR ---
CRITICAL POTASSIUM 2.8, DR ANDINO WILL REPLACE PER PROTOCOL
[2022-09-27] MEDS: fat emulsion 20% inj. 100 ML IV SCH (15:24)
[2022-09-27] MEDS ORDERED: potassium Cl 40MEQ/270ML bag 270 ML IV ONE ×2 (15:45→20:00)
[2022-09-27] MEDS: potassium Cl 40MEQ/1/2NS 520ml 520 ML IV PRN ×2 (16:24→20:11)
[2022-09-27] MEDS ORDERED: chromic chloride inj. 10 MCG, ZINC/COPPER/MANGANESE/SELENIUM 1 ML in AA 5%/CALCIUM/LYTE... IV SCH (17:00)
--- NOTE | 2022-09-27 18:00 | NUR ---
Patient in room ORTHO 4020. I have received report from LENARD Henderson and had the opportunity to ask questions and assume patient care.
--- NOTE | 2022-09-27 18:15 | NUR ---
Problems reprioritized. Patient report given, questions answered & plan of care reviewed with LENARD Schumacher.
[2022-09-27] MEDS ORDERED: HYDROmorphone 1 mg/ml syringe IV ONE (23:05)
[2022-09-28] MEDS: albumin (Human) 5% 250ml 250 ML IV SCH ×3 (01:30→08:10)
[2022-09-28 02:00] VITALS: BP 114/53; PULSE 71; RESP 15; TEMP 98.7; O2SAT 96
[2022-09-28] MEDS: HYDROmorphone 1 mg/ml syringe IV PRN ×5 (03:08→15:02)
--- NOTE | 2022-09-28 04:17 | NUR ---
pts rectal tube came out.
--- NOTE | 2022-09-28 06:09 | NUR ---
Problems reprioritized. Patient report given, questions answered & plan of care reviewed with LENARD Henderson.
--- NOTE | 2022-09-28 06:12 | NUR ---
Patient in room ORTHO 4020. I have received report from LENARD Schumacher and had the opportunity to ask questions and assume patient care.
[2022-09-28 06:26] VITALS: BP 145/95; PULSE 76; RESP 21; TEMP 97.4; O2SAT 90
[2022-09-28 06:29] LABS: ALANINE AMINOTRANSFERASE 20 U/L (12-78); ALBUMIN 2.8 G/DL (3.4-5.0); ALBUMIN/GLOBULIN RATIO 1.1 (1.1-1.5); ALKALINE PHOSPHATASE 55 IU/L (46-116); ANION GAP 13 (8-16); ASPARTATE AMINO TRANSFERASE 24 U/L (10-37); BILIRUBIN,TOTAL 0.3 MG/DL (0.1-1.0); BLOOD UREA NITROGEN 20 MG/DL (7-18); CALCIUM 7.2 MG/DL (8.5-10.1); CHLORIDE 117 MMOL/L (99-107); CREATININE 1.66 MG/DL (0.60-1.10); GLUCOSE 208 MG/DL (70-104); MAGNESIUM 1.6 MG/DL (1.5-2.4); PHOSPHORUS 3.1 MG/DL (2.3-4.5); POTASSIUM 3.2 MMOL/L (3.5-5.1); PREALBUMIN 14.2 MG/DL (19-36); SODIUM 153 MMOL/L (135-145); TOTAL CARBON DIOXIDE 23.1 MMOL/L (24-32); TOTAL PROTEIN 5.4 G/DL (6.4-8.2); TRIGLYCERIDES 149 MG/DL (20-135); eCRCL 47 ML/MIN; eGFR 42 ML/MIN
[2022-09-28] MEDS ORDERED: potassium Cl 40MEQ/270ML bag 270 ML IV ONE (07:05)
[2022-09-28] MEDS ORDERED: potassium Cl 40MEQ/1/2NS 520ml 520 ML IV ONE ×2 (07:05→08:05)
[2022-09-28 07:20] VITALS: RESP 21; O2SAT 94
[2022-09-28] MEDS: K and/or MAG REPLACEMENT MC SCH ×2 (08:00)
[2022-09-28] MEDS: docusate sodium 100mg/10ml UD cup NG SCH (08:00)
[2022-09-28] MEDS: nicotine 21mg patch - 24 hr TD SCH (08:08)
[2022-09-28] MEDS: famotidine/PF 10 mg/ml inj IV SCH (08:08)
[2022-09-28] MEDS: piperacillin/tazo 3.375gm/50ml 50 ML IV SCH (08:08)
[2022-09-28] MEDS: heparin, porcine 5000 units/ml vial SQ SCH (08:15)
[2022-09-28] MEDS ORDERED: HYDROcodone/acetaminophen 5mg/325mg tablet PO PRN ×2 (09:05)
--- NOTE | 2022-09-28 11:29 | NUR ---
Notified by clinical pharmacist of patient's upward trending serum Na, currently up to 153 MMOL/L. Pt would benefit from TPN change to non-electrolyte containing formula though per clinical pharmacist TPN bag change isn't until 1700. Noted discharge orders are in place. TC to RN who states pt receives D10 during transfer so likely don't need to change TPN recs at this time. Will f/u tomorrow and make recommendations as appropriate if pt does not end up getting discharged today. Recommendations: 1) Continuous trickle TF per MD via NGT using Vital AF at 15 mL/hr to provide 360 mL total volume/day, 432 kcal, 27 g protein, and 292 mL water 2) Continuous TPN per MD using 2:1 Clinimix-E 06/24 with 60 mL/hr goal rate and additional 100 mL 20% ILE to run at 8.33 mL/hr for 12 hours/day. To provide 1440 mL volume/day, 72 g AA, 288 g dextrose (2.66 mg/kg/min GIR), and 1467 kcal; Consider changing to 2:1 Clinimix non-E 06/24 3) TF change to Osmolite 1.2 with 70 mL/hr goal rate if okay to wean TPN and advance TF to meet 100% estimated nutrient needs 4) Advance to low fiber diet as medically indicated; continue NGTF until PO diet is advanced and pt with consistent adequate PO intake 5) Prealbumin and TG q Sunday/ 6) Daily scaled weights 7) Bowel care per physician Addendum: 09/28/22 at [address] Amended: Links added.
[2022-09-28 12:02] VITALS: BP 140/88; PULSE 68; RESP 15; TEMP 98.2; O2SAT 96
[2022-09-28 15:02] VITALS: RESP 20
--- NOTE | 2022-09-28 15:30 | NUR ---
Report called to Allison HALL and given to LENARD Wilburn.
--- NOTE | 2022-09-28 15:32 | NUR ---
Patient dc'd with all personal belongings including cell phone placed in patient's belongings bag. Patient dc'd with ambulance and Binta PRYOR RN. patient was alert and oriented at time of dc.
[2022-09-29] MEDS ORDERED: MVI, adult No.4 with vit. K 10 ML in dextrose 5% water 500ml 500 ML IV SCH ×2 (08:00)
== END 2022-09-28 15:40 | DRG 710 ==
LOC: ER 08:10 → ED HOLD 12:30 → CICU 2S 14:45 → ORTHO 4S 09-27 03:00
PROVIDERS: ADMIT Internal Medicine Critical Care Medicine; ATTEND Internal Medicine
PROC: 5A1955Z Respiratory Ventilation, Greater than 96 Consecutive Hours (ICD-10-PCS; 2022-09-20)
PROC: 30233N1 Transfusion of Nonautologous Red Blood Cells into Peripheral Vein, Percutaneous Approach (ICD-10-PCS; 2022-09-20)
PROC: 0BH17EZ Insertion of Endotracheal Airway into Trachea, Via Natural or Artificial Opening (ICD-10-PCS; 2022-09-20)
PROC: 0DNW0ZZ Release Peritoneum, Open Approach (ICD-10-PCS; principal; 2022-09-20 12:40)
PROC: 0WQF0ZZ Repair Abdominal Wall, Open Approach (ICD-10-PCS; 2022-09-24)
DX: A41.9 Sepsis, unspecified organism (principal); J96.01 Acute respiratory failure with hypoxia; N17.0 Acute kidney failure with tubular necrosis; J69.0 Pneumonitis due to inhalation of food and vomit; K55.9 Vascular disorder of intestine, unspecified; I21.A1 Myocardial infarction type 2; E43 Unspecified severe protein-calorie malnutrition; K56.52 Intestinal adhesions [bands] with complete obstruction; E87.20 Acidosis, unspecified; Z20.822 Contact with and (suspected) exposure to COVID-19; K65.9 Peritonitis, unspecified; E83.42 Hypomagnesemia; I13.0 Hypertensive heart and chronic kidney disease with heart failure and stage 1 through stage 4 chronic kidney disease, or unspecified chronic kidney disease; B19.20 Unspecified viral hepatitis C without hepatic coma; K66.8 Other specified disorders of peritoneum; K21.9 Gastro-esophageal reflux disease without esophagitis; E77.8 Other disorders of glycoprotein metabolism; I95.9 Hypotension, unspecified; E87.0 Hyperosmolality and hypernatremia; J98.11 Atelectasis; D62 Acute posthemorrhagic anemia; E86.0 Dehydration; E87.6 Hypokalemia; I50.9 Heart failure, unspecified; R10.0 Acute abdomen; F17.210 Nicotine dependence, cigarettes, uncomplicated; J44.1 Chronic obstructive pulmonary disease with (acute) exacerbation; K56.7 Ileus, unspecified; N18.9 Chronic kidney disease, unspecified; Z79.82 Long term (current) use of aspirin; Z79.899 Other long term (current) drug therapy; Z87.11 Personal history of peptic ulcer disease; Z68.22 Body mass index [BMI] 22.0-22.9, adult; Z99.81 Dependence on supplemental oxygen; Z56.0 Unemployment, unspecified
CPT/HCPCS: 36415; 36430; 36569; 36600; 71045; 74176; 76942; 80048; 80053; 80305; 81001; 82803; 82948; 83605; 83690; 83735; 83880; 84100; 84134; 84145; 84478; 84484; 85018; 85025; 85379; 85610; 85651; 85730; 86140; 86885; 86900; 86901; 86920; 87040; 87070; 87075; 87076; 87077; 87081; 87088; 87185; 87186; 87502; 87503; 87811; 93005; 94002; 94003; 94640; 94760; 99285; A4615; A4618; A5200; A6213; A6253; A6258; A6402; A6449; A7000; A9900; C1751; C1758; C9113; G0378; J1170; J1644; J2250; J2270; J2274; J2405; J2543; J2704; J2930; J3010; J3370; J3475; J3480; J3490; J7030; J7040; J7042; J7050; J7070; J7120; J7121; P9016; P9045; P9047; Q9963

== ENCOUNTER 2024-09-13 09:33 | Emergency (ER) | payer MEDICARE, MEDICAID ==
[~2024-09-13] VITALS: Ht 182.9 cm; Wt 69.5 kg
[~2024-09-13 09:33] MED LIST changes: -DOCU-148 PO; +DOCU-391 PO; -FAMO-128 PO; +FAMO20TA82 PO; -NICO-687 TD; +NICO-687 TOP; -ONDA4TAB12 PO; -PANT40TA54 PO
[2024-09-13 09:34] VITALS: TEMP 97.7
--- NOTE | 2024-09-13 10:45 | Physician Documentation ---
History of Present Illness General Chief Complaint: Bite-insect Stated Complaint: SPIDER BITE Time Seen by MD: 10:36 Primary Medical Doctor: n/a Mode of Arrival: POV History of Present Illness Initial Comments The patient is a 69-year-old male presenting with an infection involving his left forearm that began five days ago. Who is a small area of redness that he attempted to squeeze and drain and he subsequently developed a more extensive area of redness and pain around it. Medication Reconciliation Allergies: Coded Allergies: No Known Allergies (Unverified , 07/20/22) Scheduled Docusate Sodium (Docusate Sodium), 1 CAP PO Q12H, (Reported) Famotidine (Famotidine), 1 TAB PO Q12H, (Reported) Nicotine 21 MG Patch* (Habitrol 21 MG Patch*), 1 PATCH TOP DAILY, (Reported) Scheduled PRN Hydrocodone Bit/Acetaminophen 5/325 MG ([place] 5/325 MG), 1 TAB PO Q6H PRN for pain, (Reported) Past Medical History Past Medical History: GERD, GI Bleed, Hepatitis C, Peptic Ulcer Disease Past Surgical History: noncontributory Smoking: Cigarettes Alcohol Use: None Drug Use: marijuana, methamphetamine Lives In: Home Occupation: unemployed Review of Systems ROS Constitutional: Denies chills, fatigue, fever, weight gain or weight loss. HEENT: Denies hearing loss, sinus pressure or visual changes. Respiratory: Denies cough, shortness of breath or wheezing. Cardiovascular: Denies chest pain, pain while walking (claudication), edema or palpitations. Gastrointestinal: Denies abdominal pain, blood in stool, constipation, diarrhea, heartburn, loss of appetite, nausea or vomiting. Genitourinary: Denies painful urination (dysuria), excessive amount of urine (polyuria) or urinary frequency. Metabolic/Endocrine: Denies cold intolerance, heat intolerance, excessive thirst (polydipsia) or excessive hunger (polyphagia). Neurological: Denies dizziness, extremity numbness, extremity weakness, headaches, seizures or tremors. Psychiatric: Denies anxiety or depression. Integumentary: 5 cm area of redness with central eschar left forearm. Musculoskeletal: Denies back pain, joint pain, joint swelling or neck pain. Hematologic: Denies easily bleeding, easily bruises, lymphedema or issues with blood clots. Immunologic: Denies food allergies or seasonal allergies. Physical Exam Physical Exam Vital Signs: Temperature: 97.7, Source: Oral, Heart Rate: 74, Respiratory Rate: 18, BP: 108/70, Pulse Oximetry: 96, Weight: 69.500 Oxygen Flow Rate: 0 Physical Exam Physical Exam Vitals and nursing note reviewed. Constitutional: General: Patient is awake, alert, oriented x 4 in no acute distress and well appearing. Speech is clear and lucid. Appearance: Normal appearance. Patient is not ill-appearing, toxic-appearing or diaphoretic. HENT: Head: Normocephalic and atraumatic. Mouth/Throat: Mouth: Mucous membranes are moist. Pharynx: Oropharynx is clear. Eyes: General: No scleral icterus. Extraocular Movements: Extraocular movements intact. Pupils: Pupils are equal, round, and reactive to light. Neck: Supple, no Kernig or Brudzinski sign. Cardiovascular: Rate and Rhythm: Normal rate and regular rhythm. Heart sounds: No murmur heard. Pulmonary: Effort: No respiratory distress. Breath sounds: No wheezing, rhonchi or rales. Abdominal: General: There is no distension. Palpations: There is no fluid wave, hepatomegaly or mass. Tenderness: There is no abdominal tenderness. There is no guarding. Musculoskeletal: General: No swelling or deformity. Skin: Coloration: Skin is not jaundiced. Findings: 5 cm area of redness with central eschar left forearm Neurological: Mental Status: Patient is alert. Progress Results/Orders Results/Orders Orders - MELANY CANAS MD Forearm,Incl.One Joint (09/13/24 ) Completed Orders - MELANY CANAS MD Forearm,Incl.One Joint (09/13/24 ) [place] (09/13/24 10:43) Cbc/Diff (09/13/24 10:43) Bmp Er (09/13/24 10:43) C-Reactive Protein (09/13/24 10:43) Vital Signs 09/13/24 09/13/24 09/13/24 09:34 09:53 13:00 Temp 97.7 Pulse 74 66 Resp 16 18 18 B/P (MAP) 108/70 Pulse Ox 96 98 O2 Flow Rate 0 0 Laboratory Tests Test 09/13/24 10:52 White Blood Count 7.0 Red Blood Count 4.51 L Hemoglobin 13.6 L Hematocrit 40.0 L Mean Corpuscular Volume 88.7 Mean Corpuscular Hemoglobin 30.2 Mean Corpuscular Hemoglobin Concent 34.1 Red Cell Distribution Width 14.1 Platelet Count 271 Mean Platelet Volume 6.5 L Neutrophils (%) (Auto) 57.2 Lymphocytes (%) (Auto) 33.1 Monocytes (%) (Auto) 7.0 Eosinophils (%) (Auto) 2.0 Basophils (%) (Auto) 0.7 Neutrophils # (Auto) 4.0 Lymphocytes # (Auto) 2.3 Monocytes # (Auto) 0.5 Eosinophils # (Auto) 0.1 Basophils # (Auto) 0.0 CBC Comment Sodium Level 138 Potassium Level 3.9 Chloride Level 104 Carbon Dioxide Level 28.1 Anion Gap 6 L Blood Urea Nitrogen 18 Creatinine 1.09 Estimated GFR/1.73 m2 67 BUN/Creatinine Ratio 16.5 Glucose Level 96 Lactic Acid Level 1.5 Calcium Level 8.4 L C-Reactive Protein 2.02 H Albumin 3.2 L Chemistry Comments Medical Decision Making Findings This 69-year-old man presents with cellulitis of his arm. There is a small eschar which I am unroofing. I am going to discharge him on Bactrim. Departure Disposition: 01 HOME / SELF CARE / HOMELESS Impression: Primary Impression: Cellulitis Condition: Stable Additional Instructions: It is important to see your doctor or primary care provider. Emergency care may be incomplete without proper follow-up. Symptoms sometimes change or new symptoms might arise after you leave the emergency department. It is important that you call your doctor if you become worse in any way, or return to the emergency department. You are strongly urged to follow-up with your physician to assure complete and thorough care. Please call your doctor's office today, and i nformed them that you were seen in the emergency department, and that you need to be seen immediately for close follow-up. If you do not have a primary care doctor we encourage you to proactively seek a local physician for close follow-up. Consider local clinics, [facility], or local [facility] [place], [place]. Prior to discharge we spoke at length concerning symptoms that would merit reevaluation, but please return to the emergency department for any symptoms that are concerning to you, and we will be happy to continue your evaluation and treatment. Please note you can always return to the emergency department if you are having difficulty coordinating close follow-up. If medications were prescribed, you should fill them at your local pharmacy immediately and take only as prescribed. Bring your new medications to your doctors follow-up visit to discuss any changes that would be necessary. Please check [facility] for any results you did not receive in the Emergency Department: often we are unable to get all your tests back before you leave, and these tests need to be reviewed by your PCP and yourself. You can also call Medical Records if you are unable to access the internet to see MyChart. Return to the emergency department immediately for worsening chest pain, difficulty breathing, sweating, or other concerning emergent symptoms. Referrals: NO PRIMARY CARE PROVIDER (PCP) Prescriptions Sulfamethoxazole/Trimethoprim (Septra Ds Tab) 800 Mg/160 Mg Tablet 1 TAB PO Q12H for 10 Days, #20 TAB Prov: MELANY CANAS MD 09/13/24 Signature Scribe Signature: . Attestation: . MELANY CANAS MD Sep 13, 2024 10:45
[2024-09-13 11:02] LABS: MEAN PLATELET VOLUME 6.5 FL (7.4-10.4); RED CELL DISTRIBUTION WIDTH 14.1 % (11.5-14.5)
[2024-09-13 11:12] LABS: CREATININE 1.09 MG/DL (0.60-1.10); TOTAL CARBON DIOXIDE 28.1 MMOL/L (24-32); eCRCL 64 ML/MIN; eGFR 67 ML/MIN
--- NOTE | 2024-09-13 11:33 | RADIOLOGY REPORT ---
DI FOREARM,INCL.ONE JOINT, INDICATION: Swelling TECHNICAL DATA: Frontal and lateral views were obtained of the left forearm.. COMPARISON: None FINDINGS: There is no osseous abnormality. Soft tissues are normal. IMPRESSION: No acute fracture or dislocation.
[2024-09-13] MEDS ORDERED: SULF1TAB45 PO (13:12)
[2024-09-13 13:24] VITALS: BP 125/85; PULSE 66; RESP 18; O2SAT 98
== END 2024-09-13 13:25 | disposition home or self-care (01) ==
LOC: ER 09:34
DX: L03.114 Cellulitis of left upper limb (principal); F12.90 Cannabis use, unspecified, uncomplicated; F15.90 Other stimulant use, unspecified, uncomplicated
CPT/HCPCS: 36415; 73090; 80048; 83605; 85025; 86140; 99284